=== PATIENT | female | born 1945 | race Caucasian/White ===

== ENCOUNTER 2018-04-22 15:41 | Inpatient (IN) ==
--- NOTE | 2018-04-22 16:10 | Emergency Department Note ---
Wound/Laceration HPI <Tadeo Marie - Last Filed: 04/22/18 18:29> - General Source: patient Mode of arrival: ambulatory Limitations: no limitations - History of Present Illness Onset (ago): unknown Location: other (sacrum) <Sally Lawson - Last Filed: 04/22/18 18:36> - General Chief Complaint: Wound/Laceration Stated Complaint: wound to zaida rectal area Time Seen by Provider: 04/22/18 15:50 - History of Present Illness HPI Narrative: 72-year-old female in ED with her sister present. Patient states her bottom hurts and has for "a few days". Sister states she only said something yesterday. Patient states she tries to stay active with walking, but mainly sits in a chair. Patient is type II diabetic [id number] controlled. (Sally Lawson) - Related Data Home Medications Medication Instructions Recorded Confirmed Biofreeze 10% Ext Aero TOPICAL 03/01/15 10/14/15 albuterol sulfate HFA 90 180 mcg INHALATION Q4H PRN 03/01/15 10/14/15 mcg/actuation aerosol inhaler aspirin 81 mg tablet,delayed 81 mg PO QDAY 03/01/15 10/14/15 release atorvastatin 40 mg tablet 40 mg PO QHS tab 03/01/15 10/14/15 bacitracin-polymyxin B 500 1 applic OPHTHALMIC BID g 03/01/15 10/14/15 unit-10,000 unit/gram eye ointment benzonatate 200 mg capsule 200 mg PO BID PRN cap 03/01/15 10/14/15 clobetasol 0.05 % scalp solution 1 applic TOPICAL ONCE ml 03/01/15 10/14/15 gabapentin 300 mg capsule 900 mg PO BID cap 03/01/15 10/14/15 glipizide ER 5 mg tablet, extended 5 mg PO QDAY 03/01/15 10/14/15 release 24 hr hydroxychloroquine 200 mg tablet 400 mg PO QDAY 03/01/15 10/14/15 ipratropium-albuterol 0.5 mg-3 3 ml INHALATION QID 03/01/15 10/14/15 mg(2.5 mg base)/3 mL nebulization soln ketoconazole 2 % shampoo 1 applic TOPICAL Q2W 03/01/15 10/14/15 losartan 100 mg tablet 100 mg PO QDAY 03/01/15 10/14/15 metformin 1,000 mg tablet 1,000 mg PO BID 03/01/15 10/14/15 morphine ER 30 mg tablet,extended 30 mg PO TID tab 03/01/15 10/14/15 release naproxen 500 mg tablet 500 mg PO ONCE PRN tab 03/01/15 10/14/15 omeprazole 20 mg tablet,delayed 20 mg PO QDAY 03/01/15 10/14/15 release sumatriptan 5 mg/actuation nasal 5 mg INTRANASAL ONCE 03/01/15 10/14/15 spray tramadol 50 mg tablet 50 mg PO Q4H PRN 03/01/15 10/14/15 Estradiol [Estrace] 2 mg PO QDAY 03/18/15 10/14/15 hydrocodone 10 mg-acetaminophen 1 tab PO .Q4H-6H PRN tab 03/18/15 10/14/15 325 mg tablet duloxetine 60 mg capsule,delayed 60 mg PO BID cap 05/14/15 10/14/15 release oxycodone-acetaminophen 10 mg-325 1 tab PO Q4H 07/05/15 10/14/15 mg tablet fluconazole 200 mg tablet 200 mg PO QDAY 07/12/15 10/14/15 methocarbamol 750 mg tablet 750 mg PO BID tab 10/14/15 10/14/15 Previous Rx's Medication Instructions Recorded hylan g-f 20 16 mg/2 mL 16 mg INTRA-ARTICULAR QWEEK #2 ml 05/29/15 intra-articular syringe cevimeline 30 mg capsule 1 cap PO TID #90 cap 07/23/15 Allergies Allergy/AdvReac Type Severity Reaction Status Date / Time hydrocodone Allergy Mild Itching Verified 10/14/15 13:21 aspirin [From Percodan] Allergy Unknown Unknown Verified 10/14/15 13:21 diazepam [From Valium] Allergy Unknown Unknown Verified 10/14/15 13:21 diphenhydramine Allergy Unknown Unknown Verified 10/14/15 13:21 [From Benadryl] Oxycodone [From Percodan] Allergy Unknown Unknown Verified 10/14/15 13:21 sulfasalazine [Sulfasalazine] Allergy Unknown Unknown Verified 10/14/15 13:21 vancomycin Allergy Unknown Unknown Verified 10/14/15 13:21 Review of Systems All systems ED: reviewed and negative except as stated. <Sally Lawson Aliyah - Last Filed: 04/22/18 18:36> Past Medical History <Tadeo Marie - Last Filed: 04/22/18 18:29> - Social History smoking status: Former smoker <Sally Lawson - Last Filed: 04/22/18 18:36> - Past Medical History PMFSH Narrative: All Active Problems Disorder of lumbar spine (Chronic) Chronic pain (Chronic) Sicca complex (Chronic) Fibromyalgia (Chronic) Polyarthritis (Chronic) Hx of tonsillectomy (Chronic) H/O knee surgery (Chronic) Hx of esophagogastroduodenoscopy (Chronic 08/30/13) H/O colonoscopy (Chronic) H/O adenoidectomy (Chronic) Psoriasis (Chronic) Pain in limb (Chronic) Osteoarthritis (Chronic) Neuropathy, lower extremity (Chronic) Menopausal syndrome (Chronic) Hyperlipidemia (Chronic) Gastroesophageal reflux (Chronic) Depressive disorder (Chronic) DJD (degenerative joint disease) of knee (Chronic) Cough (Chronic) Cellulitis and abscess of trunk (Chronic) Inflammatory breast disease (Chronic) Anxiety (Chronic) Gout (Chronic) Obesity (Chronic) Bilateral knee pain (Chronic) Carpal tunnel syndrome (Chronic) Back pain (Chronic) Migraine (Chronic) Hormone replacement therapy (Chronic) Asthma (Chronic) Hypothyroidism (Chronic) Peripheral neuropathy (Chronic) Diabetes mellitus, type II (Chronic) Pure hypercholesterolemia (Chronic) Essential hypertension (Chronic) Sjogrens syndrome (Chronic) Urinary frequency (Chronic) History of fracture of wrist (Chronic) History of appendectomy (Chronic) History of hysterectomy (Chronic) History of trigger finger (Chronic) History of carpal tunnel surgery (Chronic) History of laminectomy (Chronic) Past Surgical History Hx of tonsillectomy (Chronic) H/O knee surgery (Chronic) Hx of esophagogastroduodenoscopy (Chronic 08/30/13) H/O colonoscopy (Chronic) H/O adenoidectomy (Chronic) History of fracture of wrist (Chronic) History of appendectomy (Chronic) History of hysterectomy (Chronic) History of trigger finger (Chronic) History of carpal tunnel surgery (Chronic) History of laminectomy (Chronic) Family History Mother Cerebrovascular accident (CVA), Onset Age: 76 Malignant neoplasm Disorder of gallbladder Sister Malignant neoplasm of breast, Onset Age: 75 Unknown Disorder of endocrine system Essential hypertension Arthritis Allergic rhinitis Father Myocardial Infarction, Onset Age: 84 (Sally Lawson) Physical Exam Limitations: no limitations General appearance: alert, obese, other (patient with pain when laying on her back) Head: atraumatic, normocephalic, normal inspection Eye: Present: normal appearance, PERRL, other. Absent: conjunctival injection ENT: normal oropharynx, mucous membranes dry, normal external ear exam Neck: Present: normal inspection. Absent: tenderness, lymphadenopathy Chest: Present: normal inspection, symmetric chest wall rise. Absent: tenderness Respiratory: Present: normal lung sounds bilaterally. Absent: respiratory distress, rales/crackles, wheezes Cardiovascular: Present: tachycardia. Absent: systolic murmur, diastolic murmur Extremities: Present: normal inspection. Absent: pedal edema Back: Present: normal inspection. Absent: tenderness, CVA tenderness (R), CVA tenderness (L) Neurological: Present: alert, oriented X3, normal gait Psychiatric: Present: normal affect, normal mood. Absent: depressed, agitated, anxious Skin: Present: warm, dry, normal color, other (Sarcrum [id number] nongradable area with eschar, [id number] erythema surrounding. Non draining. Pannus pink no open sores). Absent: cyanosis, diaphoresis <Sally Lawson - Last Filed: 04/22/18 18:36> Course <Tadeo Marie - Last Filed: 04/22/18 18:29> <Sally Lawson - Last Filed: 04/22/18 18:36> - Reevaluation(s) Reevaluation #1: Patient seen and examined with our nurse practitioner. Agree with assessment and treatment plan. (Tadeo Marie) Vital Signs Temperature 97.8 F 04/22/18 15:41 Pulse Rate 93 H 04/22/18 15:41 Respiratory Rate 18 04/22/18 15:41 Blood Pressure 134/69 04/22/18 15:41 Pulse Oximetry (%) 98 04/22/18 15:41 Temperature 97.8 F 04/22/18 15:41 Pulse Rate 93 H 04/22/18 15:41 Respiratory Rate 18 04/22/18 15:41 Blood Pressure 134/69 04/22/18 15:41 Pulse Oximetry (%) 98 04/22/18 15:41 Wound/Laceration - Differential Diagnosis Differential Diagnosis: Likely: abscess, avulsion of skin - Lab Data Lab results reviewed: Yes I reviewed the patient's lab results. Result diagrams: 04/22/18 16:27 04/22/18 16:27 <Tadeo Marie - Last Filed: 04/22/18 18:29> - Lab Data Result diagrams: 04/22/18 16:27 04/22/18 16:27 <Sally Lawson - Last Filed: 04/22/18 18:36> - MDM Narrative Medical decision making narrative: Patient was discussed and reviewed with our nurse practitioner. Agree with her assessment and treatment plan. (Tadeo Marie) conculted with who advised he would see the patient if hospitalist would admit. Dr. Holt also stated Dry ABD, 30 TAPS avoid back. Consulted with who accepted patient. (Sally Lawson) - Lab Data Lab Results 04/22/18 04/22/18 04/22/18 Range/Units 16:25 16:27 16:27 WBC 7.4 (4.5-11.0) K/mcL RBC 4.56 (4.00-5.20) M/mcL Hgb 13.3 (12.0-15.0) g/dL Hct 39.8 (36.0-48.0) % MCV 87.3 (80.0-100.0) fL MCH 29.2 (26.0-34.0) pg MCHC 33.4 (31.0-36.0) g/dL RDW 13.8 (11.5-14.5) % Plt Count 373 (140-440) K/mcL MPV 7.9 (7.4-10.4) fL Gran % 64.5 (38.0-78.0) % Lymph % (Auto) 22.3 (15.5-49.0) % [place] % (Auto) 8.4 (1.0-12.0) % Eos % (Auto) 4.0 (0.0-7.0) % Baso % (Auto) 0.8 (0.0-2.0) % Gran # 4.8 (1.8-8.0) K/mcL Lymph # (Auto) 1.6 (1.5-4.8) K/mcL [place] # (Auto) 0.6 (0.1-0.9) K/mcL Eos # (Auto) 0.3 (0.0-0.7) K/mcL Baso # (Auto) 0.1 (0.0-0.3) K/mcL VBG Lactic Acid 2.9 H (0.5-2.0) mmol/L Sodium 138 (133-145) mmol/L Potassium 3.8 (3.3-5.1) mmol/L Chloride 101 (96-108) mmol/L Carbon Dioxide 24 (22-30) mmol/L Anion Gap 13.0 (8-16) BUN 7 L (8-23) mg/dl Creatinine 0.7 (0.6-1.1) mg/dl GFR Calculation 87 Glucose 259 H (70-105) mg/dL Calcium 8.7 (8.6-10.4) mg/dl Total Bilirubin 0.5 (0.0-1.0) mg/dL AST 13 (0-37) U/l ALT 10 (0-40) U/l Alkaline Phosphatase 78 (39-117) U/L C-Reactive Protein 1.3 H (0.0-0.8) mg/dl Total Protein 6.6 (5.9-8.4) gm/dL Albumin 3.2 (3.2-5.2) gm/dL Globulin 3.4 (2.2-3.7) gm/dL Albumin/Globulin Ratio 0.9 L (1.0-2.3) Procalcitonin (<0.10) ng/mL Urine Color Urine Appearance Urine pH (5.0-9.0) Ur Specific [place] (1.000-1.035) Urine Protein (NEG) mg/dL Urine Glucose (UA) (NEG) mg/dL Urine Ketones (NEG) mg/dL Urine Occult Blood (<0.03) mg/dL Urine Nitrate (NEG) Urine Bilirubin (NEG) mg/dL Urine Urobilinogen (NEG) mg/dL Ur Leukocyte Esterase (NEG) /uL Urine RBC (0-1) /hpf Urine WBC (0-4) /hpf Ur Squamous Epith Cells (0-4) /hpf Urine Bacteria (0) /hpf Hyaline Casts (0-2) /lpf Urine Mucus (0) /hpf Ur Culture Indicated? 04/22/18 04/22/18 Range/Units 16:28 17:30 WBC (4.5-11.0) K/mcL RBC (4.00-5.20) M/mcL Hgb (12.0-15.0) g/dL Hct (36.0-48.0) % MCV (80.0-100.0) fL MCH (26.0-34.0) pg MCHC (31.0-36.0) g/dL RDW (11.5-14.5) % Plt Count (140-440) K/mcL MPV (7.4-10.4) fL Gran % (38.0-78.0) % Lymph % (Auto) (15.5-49.0) % [place] % (Auto) (1.0-12.0) % Eos % (Auto) (0.0-7.0) % Baso % (Auto) (0.0-2.0) % Gran # (1.8-8.0) K/mcL Lymph # (Auto) (1.5-4.8) K/mcL [place] # (Auto) (0.1-0.9) K/mcL Eos # (Auto) (0.0-0.7) K/mcL Baso # (Auto) (0.0-0.3) K/mcL VBG Lactic Acid (0.5-2.0) mmol/L Sodium (133-145) mmol/L Potassium (3.3-5.1) mmol/L Chloride (96-108) mmol/L Carbon Dioxide (22-30) mmol/L Anion Gap (8-16) BUN (8-23) mg/dl Creatinine (0.6-1.1) mg/dl GFR Calculation Glucose (70-105) mg/dL Calcium (8.6-10.4) mg/dl Total Bilirubin (0.0-1.0) mg/dL AST (0-37) U/l ALT (0-40) U/l Alkaline Phosphatase (39-117) U/L C-Reactive Protein (0.0-0.8) mg/dl Total Protein (5.9-8.4) gm/dL Albumin (3.2-5.2) gm/dL Globulin (2.2-3.7) gm/dL Albumin/Globulin Ratio (1.0-2.3) Procalcitonin < 0.05 (<0.10) ng/mL Urine Color Yellow Urine Appearance Hazy Urine pH 5.0 (5.0-9.0) Ur Specific [place] 1.024 (1.000-1.035) Urine Protein Neg (NEG) mg/dL Urine Glucose (UA) 150 A (NEG) mg/dL Urine Ketones 5/tr A (NEG) mg/dL Urine Occult Blood Neg (<0.03) mg/dL Urine Nitrate Neg (NEG) Urine Bilirubin Neg (NEG) mg/dL Urine Urobilinogen Neg (NEG) mg/dL Ur Leukocyte Esterase Neg (NEG) /uL Urine RBC 1 (0-1) /hpf Urine WBC 3 (0-4) /hpf Ur Squamous Epith Cells 17 H (0-4) /hpf Urine Bacteria Few A (0) /hpf Hyaline Casts 1 (0-2) /lpf Urine Mucus Many A (0) /hpf Ur Culture Indicated? No Disposition Pt seen by LOCAL AREA NETWORK ADMINISTRATOR/PA only: No <Tadeo Marie - Last Filed: 04/22/18 18:29> Pt seen by LOCAL AREA NETWORK ADMINISTRATOR/PA only: No (Frank) Time of Disposition: 18:36 <Sally Lawson - Last Filed: 04/22/18 18:36> Clinical Impression: Diabetes mellitus with skin ulcer Disposition: Xfer As Inpt ([facility]) Condition: Fair Referrals: Tish Reynolds MD [Primary Care Provider] -
[2018-04-22 16:53] LABS: Basophils # (Auto) 0.1 K/mcL (0.0-0.3); Basophils % (Auto) 0.8 % (0.0-2.0); Eosinophils # (Auto) 0.3 K/mcL (0.0-0.7); Granulocytes % (Auto) 64.5 % (38.0-78.0); Lymphocytes # (Auto) 1.6 K/mcL (1.5-4.8); Lymphocytes % (Auto) 22.3 % (15.5-49.0); Mean Cell Volume 87.3 fL (80.0-100.0); Mean Corpuscular HGB Conc 33.4 g/dL (31.0-36.0); Monocytes # (Auto) 0.6 K/mcL (0.1-0.9); Monocytes % (Auto) 8.4 % (1.0-12.0); Platelet Count 373 K/mcL (140-440); RBC 4.56 M/mcL (4.00-5.20); Red Cell Distribution Width 13.8 % (11.5-14.5)
[2018-04-22 17:16] LABS: ALT/SGPT 10 U/l (0-40); Albumin 3.2 gm/dL (3.2-5.2); Albumin/Globulin Ratio 0.9 (1.0-2.3); Alkaline Phosphatase 78 U/L (39-117); Blood Urea Nitrogen 7 mg/dl (8-23); C-Reactive Protein 1.3 mg/dl (0.0-0.8)
[2018-04-22 18:03] LABS: Appearance,Urine HAZY; Bacteria,Urine FEW /hpf (0); Bilirubin,Urine NEG (NEG); Color,Urine YELLOW; Glucose,Urine (UA) 150 mg/dL (NEG); Leukocyte Esterase,Urine NEG /uL (NEG); Mucus,Urine MANY /hpf (0); Protein,Urine NEG (NEG); Specific Gravity,Urine 1.024 (1.000-1.035); Urine Blood NEG mg/dL (<0.03); Urine Hyaline Cast 1 /lpf (0-2); Urine RBC 1 /hpf (0-1); Urine Squamous Epithelial Cell 17 /hpf (0-4); Urine WBC 3 /hpf (0-4); Urobilinogen,Urine NEG (NEG)
[2018-04-22] MEDS ORDERED: LACTATED RINGERS 1,000 ML IV SCH (18:15)
[2018-04-22] MEDS ORDERED: 0.9 % SODIUM CHLORIDE 1,000 ML IV ONE ×3 (18:19→21:19)
--- NOTE | 2018-04-22 18:44 | Internal Med History&Physical ---
Medical - H&P: HPI Patient information: Note initiated : 04/22/18 at 6:42 pm Service Date, if different from initiated Date: [] Patient: Diogo Aly a 72 y/o F admitted on for wound to zaida rectal area. Chief Complaint: [] History of present illness: Ms. Aly is a 72 year old F Was a secondary to wound on her sacrum. She states several days ago she started noticing painful area at the top of her buttocks. And to continue to worsen where she had a friend bring her to the ER. In the ER she was found to have a large decubitus ulcer with erythema around it and some granulation tissue in a little bit of purulence. She denies any headaches fevers chills. She has had poor oral intake past day. She says he sits in a recliner most of the day and sometimes sleeps in the recliner. No other pains or complaints. Review of Systems: Positives as above. denies headache/fever/chills/nausea/vomiting/chest or abdominal pain/cough/dyspnea/diarrhea. Remaining 10 point review of systems reviewed negative Medical - H&P: PMH Medical history: All Active Problems Disorder of lumbar spine (Chronic) Chronic pain (Chronic) Sicca complex (Chronic) Fibromyalgia (Chronic) Polyarthritis (Chronic) Hx of tonsillectomy (Chronic) H/O knee surgery (Chronic) Hx of esophagogastroduodenoscopy (Chronic 08/30/13) H/O colonoscopy (Chronic) H/O adenoidectomy (Chronic) Psoriasis (Chronic) Pain in limb (Chronic) Osteoarthritis (Chronic) Neuropathy, lower extremity (Chronic) Menopausal syndrome (Chronic) Hyperlipidemia (Chronic) Gastroesophageal reflux (Chronic) Depressive disorder (Chronic) DJD (degenerative joint disease) of knee (Chronic) Cough (Chronic) Cellulitis and abscess of trunk (Chronic) Inflammatory breast disease (Chronic) Anxiety (Chronic) Gout (Chronic) Obesity (Chronic) Bilateral knee pain (Chronic) Carpal tunnel syndrome (Chronic) Back pain (Chronic) Migraine (Chronic) Hormone replacement therapy (Chronic) Asthma (Chronic) Hypothyroidism (Chronic) Peripheral neuropathy (Chronic) Diabetes mellitus, type II (Chronic) Pure hypercholesterolemia (Chronic) Essential hypertension (Chronic) Sjogrens syndrome (Chronic) Urinary frequency (Chronic) History of fracture of wrist (Chronic) History of appendectomy (Chronic) History of hysterectomy (Chronic) History of trigger finger (Chronic) History of carpal tunnel surgery (Chronic) History of laminectomy (Chronic) Past Surgical History Hx of tonsillectomy (Chronic) H/O knee surgery (Chronic) Hx of esophagogastroduodenoscopy (Chronic 08/30/13) H/O colonoscopy (Chronic) H/O adenoidectomy (Chronic) History of fracture of wrist (Chronic) History of appendectomy (Chronic) History of hysterectomy (Chronic) History of trigger finger (Chronic) History of carpal tunnel surgery (Chronic) History of laminectomy (Chronic) Family History Mother Cerebrovascular accident (CVA), Onset Age: 76 Malignant neoplasm Disorder of gallbladder Sister Malignant neoplasm of breast, Onset Age: 75 Unknown Disorder of endocrine system Essential hypertension Arthritis Allergic rhinitis Father Myocardial Infarction, Onset Age: 84 Social History Quit smoking 1981 drinks alcohol rarely embolized with a cane lives at home with a friend Medical - H&P: Meds Home Medications Medication Instructions Recorded Confirmed Type Biofreeze 10% Ext Aero TOPICAL 03/01/15 10/14/15 History albuterol sulfate HFA 90 180 mcg INHALATION Q4H PRN 03/01/15 10/14/15 History mcg/actuation aerosol inhaler aspirin 81 mg tablet,delayed 81 mg PO QDAY 03/01/15 10/14/15 History release atorvastatin 40 mg tablet 40 mg PO QHS tab 03/01/15 10/14/15 History bacitracin-polymyxin B 500 1 applic OPHTHALMIC BID g 03/01/15 10/14/15 History unit-10,000 unit/gram eye ointment benzonatate 200 mg capsule 200 mg PO BID PRN cap 03/01/15 10/14/15 History clobetasol 0.05 % scalp solution 1 applic TOPICAL ONCE ml 03/01/15 10/14/15 History gabapentin 300 mg capsule 900 mg PO BID cap 03/01/15 10/14/15 History glipizide ER 5 mg tablet, extended 5 mg PO QDAY 03/01/15 10/14/15 History release 24 hr hydroxychloroquine 200 mg tablet 400 mg PO QDAY 03/01/15 10/14/15 History ipratropium-albuterol 0.5 mg-3 3 ml INHALATION QID 03/01/15 10/14/15 History mg(2.5 mg base)/3 mL nebulization soln ketoconazole 2 % shampoo 1 applic TOPICAL Q2W 03/01/15 10/14/15 History losartan 100 mg tablet 100 mg PO QDAY 03/01/15 10/14/15 History metformin 1,000 mg tablet 1,000 mg PO BID 03/01/15 10/14/15 History morphine ER 30 mg tablet,extended 30 mg PO TID tab 03/01/15 10/14/15 History release naproxen 500 mg tablet 500 mg PO ONCE PRN tab 03/01/15 10/14/15 History omeprazole 20 mg tablet,delayed 20 mg PO QDAY 03/01/15 10/14/15 History release sumatriptan 5 mg/actuation nasal 5 mg INTRANASAL ONCE 03/01/15 10/14/15 History spray tramadol 50 mg tablet 50 mg PO Q4H PRN 03/01/15 10/14/15 History Estradiol [Estrace] 2 mg PO QDAY 03/18/15 10/14/15 History hydrocodone 10 mg-acetaminophen 1 tab PO .Q4H-6H PRN tab 03/18/15 10/14/15 History 325 mg tablet duloxetine 60 mg capsule,delayed 60 mg PO BID cap 05/14/15 10/14/15 History release hylan g-f 20 16 mg/2 mL 16 mg INTRA-ARTICULAR QWEEK #2 ml 05/29/15 10/14/15 Rx intra-articular syringe oxycodone-acetaminophen 10 mg-325 1 tab PO Q4H 07/05/15 10/14/15 History mg tablet fluconazole 200 mg tablet 200 mg PO QDAY 07/12/15 10/14/15 History cevimeline 30 mg capsule 1 cap PO TID #90 cap 07/23/15 10/14/15 Rx methocarbamol 750 mg tablet 750 mg PO BID tab 10/14/15 10/14/15 History Allergies Allergy/AdvReac Type Severity Reaction Status Date / Time hydrocodone Allergy Mild Itching Verified 10/14/15 13:21 aspirin [From Percodan] Allergy Unknown Unknown Verified 10/14/15 13:21 diazepam [From Valium] Allergy Unknown Unknown Verified 10/14/15 13:21 diphenhydramine Allergy Unknown Unknown Verified 10/14/15 13:21 [From Benadryl] Oxycodone [From Percodan] Allergy Unknown Unknown Verified 10/14/15 13:21 sulfasalazine [Sulfasalazine] Allergy Unknown Unknown Verified 10/14/15 13:21 vancomycin Allergy Unknown Unknown Verified 10/14/15 13:21 Medical - H&P: Exam - Constitutional Vitals: Temp Pulse Resp BP Pulse Ox 97.8 F 93 H 18 134/69 98 04/22/18 15:41 04/22/18 15:41 04/22/18 15:41 04/22/18 15:41 04/22/18 15:41 Exam: General: Alert, Awake, No acute Distress, obese Eyes/N/T: EOMI, PEERL, DMM Head/Neck: neck supple, normocephalic atraumatic CV: RRR, No murmurs, normal s1/s2 Pulm: Clear b/l, no wheezing/rhonchi/rales Abd: soft, nontender, +BS x4 Ext: no clubbing/cyanosis/edema Neuro: Alert, no focal deficits, moves all extremities, CN 2-12 grossly intact, symmetrical strength b/l upper/lower, sensations intact b/l upper/lower Skin: warm/dry Back: Large sacral decubitus ulcer with surrounding erythema, some purulence in the center and eschar Medical - H&P: Reslt - Labs CBC & Chem 7: 04/22/18 16:27 04/22/18 16:27 Labs: Short CBC 04/22/18 Range/Units 16:27 WBC 7.4 (4.5-11.0) K/mcL Hgb 13.3 (12.0-15.0) g/dL Hct 39.8 (36.0-48.0) % Plt Count 373 (140-440) K/mcL BMP 04/22/18 16:27 Sodium 138 Potassium 3.8 Chloride 101 Carbon Dioxide 24 BUN 7 L Creatinine 0.7 Glucose 259 H Calcium 8.7 Liver Function 04/22/18 Range/Units 16:27 Total Bilirubin 0.5 (0.0-1.0) mg/dL AST 13 (0-37) U/l ALT 10 (0-40) U/l Alkaline Phosphatase 78 (39-117) U/L Albumin 3.2 (3.2-5.2) gm/dL Urine 04/22/18 Range/Units 17:30 Urine Color Yellow Urine Appearance Hazy Urine pH 5.0 (5.0-9.0) Ur Specific [place] 1.024 (1.000-1.035) Urine Protein Neg (NEG) mg/dL Urine Glucose (UA) 150 A (NEG) mg/dL Medical - H&P: A/P - Narrative A/P Narrative: A: *Sacral decubitus ulcer appears to be early infection: *Diabetes with neuropathy: *Asthma: *Obesity: *Hypertension: *GERD: *Fibromyalgia: * P: -Zosyn -IVF's -Wound care, Dr. Dodd -SSI -f/u lactate -check A1c - -pt/ot -ppx: heparin/pepcid
[2018-04-22] MEDS ORDERED: IPRATROPIUM/ALBUTEROL 3 ML AMPUL.NEB NEB PRN (19:48)
[2018-04-22] MEDS ORDERED: ONDANSETRON 4 MG/2 ML VIAL IV PRN (19:48)
[2018-04-22] MEDS ORDERED: DEXTROSE 31 GM ORAL.SUSP PO PRN (19:48)
[2018-04-22] MEDS ORDERED: ACETAMINOPHEN 325 MG TABLET PO PRN (19:48)
[2018-04-22] MEDS ORDERED: DEXTROSE 50% 50 ML VIAL IV PRN (19:48)
[2018-04-22 21:11] LABS: Hemoglobin A1C 9.7 % HGB (4.0-6.0)
[2018-04-22] MEDS ORDERED: LABETALOL 5 MG/ML ML IV PRN (21:20)
[2018-04-22] MEDS: HEPARIN 5,000 UNIT/ML VIAL SQ SCH (21:29)
[2018-04-22] MEDS: DOCUSATE SODIUM 100 MG CAPSULE PO SCH (21:29)
[2018-04-22] MEDS: FAMOTIDINE 20 MG TABLET PO SCH (21:30)
[2018-04-22] MEDS: INSULIN LISPRO 1 UNIT/0.01 ML UNIT SQ SCH (21:31)
[2018-04-22] MEDS: 0.9 % SODIUM CHLORIDE 10 ML SYRINGE IV SCH (21:32)
[2018-04-22] MEDS: 0.9 % SODIUM CHLORIDE 1,000 ML IV SCH (21:35)
[2018-04-22] MEDS: PIPERACILLIN SODIUM/TAZOBACTAM 3.375 GM in DEXTROSE 5% IN WATER 50 ML IV SCH (21:35)
--- NOTE | 2018-04-22 21:55 | General Surgery Consult Note ---
History of Present Illness Patient information: Note initiated : 04/22/18 at 9:49 pm Service Date, if different from initiated Date: [] Patient: Diogo Aly 72 y/o F admitted on 04/22/18 for wound to zaida rectal area. Chief Complaint: [] Consult date: 04/22/18 Requesting physician: Vic Isbell (Sacral ulcer, Uncontrolled diabetes) History of present illness: I saw this patient in room 127. 72/F Morbid obese female admitted via ER with uncontrolled diabetes, chills but NO fever. DENIES N/V/D/COUGH. bleeding. NO CVS/ RS SYMPTOMS. SHE SITS ON CHAIR OR LIES DOWN ALL THE TIME. Seen in ER and admitted to hospital for observation. NON Smoker and NON alcoholic Medications and Allergies Home Medications Medication Instructions Recorded Confirmed Type Biofreeze 10% Ext Aero TOPICAL 03/01/15 10/14/15 History albuterol sulfate HFA 90 180 mcg INHALATION Q4H PRN 03/01/15 10/14/15 History mcg/actuation aerosol inhaler aspirin 81 mg tablet,delayed 81 mg PO QDAY 03/01/15 10/14/15 History release atorvastatin 40 mg tablet 40 mg PO QHS tab 03/01/15 10/14/15 History bacitracin-polymyxin B 500 1 applic OPHTHALMIC BID g 03/01/15 10/14/15 History unit-10,000 unit/gram eye ointment benzonatate 200 mg capsule 200 mg PO BID PRN cap 03/01/15 10/14/15 History clobetasol 0.05 % scalp solution 1 applic TOPICAL ONCE ml 03/01/15 10/14/15 History gabapentin 300 mg capsule 900 mg PO BID cap 03/01/15 10/14/15 History glipizide ER 5 mg tablet, extended 5 mg PO QDAY 03/01/15 10/14/15 History release 24 hr hydroxychloroquine 200 mg tablet 400 mg PO QDAY 03/01/15 10/14/15 History ipratropium-albuterol 0.5 mg-3 3 ml INHALATION QID 03/01/15 10/14/15 History mg(2.5 mg base)/3 mL nebulization soln ketoconazole 2 % shampoo 1 applic TOPICAL Q2W 03/01/15 10/14/15 History losartan 100 mg tablet 100 mg PO QDAY 03/01/15 10/14/15 History metformin 1,000 mg tablet 1,000 mg PO BID 03/01/15 10/14/15 History morphine ER 30 mg tablet,extended 30 mg PO TID tab 03/01/15 10/14/15 History release naproxen 500 mg tablet 500 mg PO ONCE PRN tab 03/01/15 10/14/15 History omeprazole 20 mg tablet,delayed 20 mg PO QDAY 03/01/15 10/14/15 History release sumatriptan 5 mg/actuation nasal 5 mg INTRANASAL ONCE 03/01/15 10/14/15 History spray tramadol 50 mg tablet 50 mg PO Q4H PRN 03/01/15 10/14/15 History Estradiol [Estrace] 2 mg PO QDAY 03/18/15 10/14/15 History hydrocodone 10 mg-acetaminophen 1 tab PO .Q4H-6H PRN tab 03/18/15 10/14/15 History 325 mg tablet duloxetine 60 mg capsule,delayed 60 mg PO BID cap 05/14/15 10/14/15 History release hylan g-f 20 16 mg/2 mL 16 mg INTRA-ARTICULAR QWEEK #2 ml 05/29/15 10/14/15 Rx intra-articular syringe oxycodone-acetaminophen 10 mg-325 1 tab PO Q4H 07/05/15 10/14/15 History mg tablet fluconazole 200 mg tablet 200 mg PO QDAY 07/12/15 10/14/15 History cevimeline 30 mg capsule 1 cap PO TID #90 cap 07/23/15 10/14/15 Rx methocarbamol 750 mg tablet 750 mg PO BID tab 10/14/15 10/14/15 History Allergies Allergy/AdvReac Type Severity Reaction Status Date / Time hydrocodone Allergy Mild Itching Verified 10/14/15 13:21 aspirin [From Percodan] Allergy Unknown Unknown Verified 10/14/15 13:21 diazepam [From Valium] Allergy Unknown Unknown Verified 10/14/15 13:21 diphenhydramine Allergy Unknown Unknown Verified 10/14/15 13:21 [From Benadryl] Oxycodone [From Percodan] Allergy Unknown Unknown Verified 10/14/15 13:21 sulfasalazine [Sulfasalazine] Allergy Unknown Unknown Verified 10/14/15 13:21 vancomycin Allergy Unknown Unknown Verified 10/14/15 13:21 Exam Temp Pulse Resp BP Pulse Ox 97.8 F 82 20 183/79 100 04/22/18 19:48 04/22/18 19:48 04/22/18 19:48 04/22/18 19:48 04/22/18 19:48 - General physical appearance well developed, well nourished, no distress, obese, other (Ambulates well. ) - Eyes PERRL, normal ocular movement, pale - ENT normal pinna, normal nares, normal mucosa, no congestion - Head Head exam IM: Present: atraumatic, normal inspection, normocephalic - Neck no masses, trachea midline, no venous distension - Cardiovascular Cardiovascular exam IM: Present: normal rate and rhythm - Respiratory normal expansion, clear to auscultation - Abdomen Abdomen: Present: soft, non tender, bowel sounds - Integumentary Present: other (Sacral pressure ulcer covered with dry adherent eschar 9 x 3 CM stuck to wound base. Surrounding skin and periwound texture is usual for this patient. ) - Neurologic Present: normal coordination, deep tendon reflexes, other (Moves all 4 extremities. ) - Musculoskeletal Present: normal gait, other - Psychiatric Present: oriented to time, oriented to person, speech is normal, memory intact Results - Labs 04/22/18 16:27 04/22/18 16:27 Abnormal lab results 04/22/18 04/22/18 04/22/18 Range/Units 16:25 16:27 17:30 VBG Lactic Acid 2.9 H (0.5-2.0) mmol/L BUN 7 L (8-23) mg/dl Glucose 259 H (70-105) mg/dL Hemoglobin A1c (4.0-6.0) % HGB C-Reactive Protein 1.3 H (0.0-0.8) mg/dl Albumin/Globulin Ratio 0.9 L (1.0-2.3) Urine Glucose (UA) 150 A (NEG) mg/dL Urine Ketones 5/tr A (NEG) mg/dL Ur Squamous Epith Cells 17 H (0-4) /hpf Urine Bacteria Few A (0) /hpf Urine Mucus Many A (0) /hpf 04/22/18 04/22/18 Range/Units 20:25 20:25 VBG Lactic Acid 2.8 H (0.5-2.0) mmol/L BUN (8-23) mg/dl Glucose (70-105) mg/dL Hemoglobin A1c 9.7 H (4.0-6.0) % HGB C-Reactive Protein (0.0-0.8) mg/dl Albumin/Globulin Ratio (1.0-2.3) Urine Glucose (UA) (NEG) mg/dL Urine Ketones (NEG) mg/dL Ur Squamous Epith Cells (0-4) /hpf Urine Bacteria (0) /hpf Urine Mucus (0) /hpf Diabetes panel 04/22/18 04/22/18 Range/Units 16:27 20:25 Sodium 138 (133-145) mmol/L Potassium 3.8 (3.3-5.1) mmol/L Chloride 101 (96-108) mmol/L Carbon Dioxide 24 (22-30) mmol/L BUN 7 L (8-23) mg/dl Creatinine 0.7 (0.6-1.1) mg/dl Glucose 259 H (70-105) mg/dL Hemoglobin A1c 9.7 H (4.0-6.0) % HGB Calcium 8.7 (8.6-10.4) mg/dl AST 13 (0-37) U/l ALT 10 (0-40) U/l Alkaline Phosphatase 78 (39-117) U/L Total Protein 6.6 (5.9-8.4) gm/dL Albumin 3.2 (3.2-5.2) gm/dL Calcium panel 04/22/18 Range/Units 16:27 Calcium 8.7 (8.6-10.4) mg/dl Albumin 3.2 (3.2-5.2) gm/dL Pituitary panel 04/22/18 Range/Units 16:27 Sodium 138 (133-145) mmol/L Potassium 3.8 (3.3-5.1) mmol/L Chloride 101 (96-108) mmol/L Carbon Dioxide 24 (22-30) mmol/L BUN 7 L (8-23) mg/dl Creatinine 0.7 (0.6-1.1) mg/dl Glucose 259 H (70-105) mg/dL Calcium 8.7 (8.6-10.4) mg/dl Adrenal panel 12/21/18 Range/Units 16:27 Sodium 138 (133-145) mmol/L Potassium 3.8 (3.3-5.1) mmol/L Chloride 101 (96-108) mmol/L Carbon Dioxide 24 (22-30) mmol/L BUN 7 L (8-23) mg/dl Creatinine 0.7 (0.6-1.1) mg/dl Glucose 259 H (70-105) mg/dL Calcium 8.7 (8.6-10.4) mg/dl Total Bilirubin 0.5 (0.0-1.0) mg/dL AST 13 (0-37) U/l ALT 10 (0-40) U/l Alkaline Phosphatase 78 (39-117) U/L Total Protein 6.6 (5.9-8.4) gm/dL Albumin 3.2 (3.2-5.2) gm/dL All other labs normal.
[2018-04-22] MEDS ORDERED: COLLAGENASE TOP OINT TUBE 30GM TOPICAL ONE (22:05)
[2018-04-23] MEDS: PIPERACILLIN SODIUM/TAZOBACTAM 3.375 GM in DEXTROSE 5% IN WATER 50 ML IV SCH ×4 (01:04→18:19)
[2018-04-23] MEDS: 0.9 % SODIUM CHLORIDE 10 ML SYRINGE IV SCH ×3 (04:43→20:58)
[2018-04-23 05:29] LABS: Basophils # (Auto) 0.1 K/mcL (0.0-0.3); Basophils % (Auto) 0.8 % (0.0-2.0); Eosinophils # (Auto) 0.3 K/mcL (0.0-0.7); Eosinophils % (Auto) 4.1 % (0.0-7.0); Granulocytes % (Auto) 62.2 % (38.0-78.0); Lymphocytes # (Auto) 1.8 K/mcL (1.5-4.8); Mean Cell Volume 87.7 fL (80.0-100.0); Monocytes # (Auto) 0.8 K/mcL (0.1-0.9); Monocytes % (Auto) 9.9 % (1.0-12.0); Platelet Count 325 K/mcL (140-440); RBC 4.11 M/mcL (4.00-5.20); Red Cell Distribution Width 13.9 % (11.5-14.5)
[2018-04-23 05:57] LABS: ALT/SGPT 9 U/l (0-40); Albumin 2.7 gm/dL (3.2-5.2); Albumin/Globulin Ratio 0.8 (1.0-2.3); Alkaline Phosphatase 71 U/L (39-117); Bilirubin,Direct < 0.2 mg/dL (0.0-0.3); Blood Urea Nitrogen 6 mg/dl (8-23); Gamma Glutamyl Transpeptidase 40 U/L (5-36)
[2018-04-23] MEDS ORDERED: SUMATRIPTAN 5 MG INTRANASAL PRN (07:44)
[2018-04-23] MEDS ORDERED: oxyCODONE/APAP 10/325MG TABLET PO PRN (07:44)
[2018-04-23] MEDS ORDERED: LABETALOL 5 MG/ML ML IV PRN (07:46)
--- NOTE | 2018-04-23 07:57 | Internal Med Progress Note ---
Medical - PN: Subj Patient information: Note initiated : 04/23/18 at 7:47 am Service Date, if different from initiated Date: [] Patient: Diogo Aly a 72 y/o F admitted on 04/22/18 for wound to zaida rectal area. Chief Complaint: [] Interval history: Ms. Aly is a 72 year old F Was a secondary to wound on her sacrum. She states several days ago she started noticing painful area at the top of her buttocks. And to continue to worsen where she had a friend bring her to the ER. In the ER she was found to have a large decubitus ulcer with erythema around it and some granulation tissue in a little bit of purulence. She denies any headaches fevers chills. She has had poor oral intake past day. She says he sits in a recliner most of the day and sometimes sleeps in the recliner. No other pains or complaints. 04/23 Continues to have pain in the sacral area. Home medications clarified and restarting home pain medications and cont prn IV pain meds. No new complaints. Review of Systems: denies headache/fever/chills/nausea/vomiting/chest or abdominal pain/cough/ dyspnea/diarrhea. Otherwise see above. - Constitutional Vitals: Vital Signs Temp Pulse Resp BP Pulse Ox 98.1 F 74 18 162/87 96 04/23/18 06:57 04/23/18 04:00 04/23/18 06:57 04/23/18 06:57 04/23/18 06:57 Period Temp Pulse Resp BP Sys/Munoz Pulse Ox Last 24 Hr 97.8 F-98.2 F 73-93 18-24 134-183/59-87 96-100 Intake and Output 04/22/18 04/23/18 04/23/18 21:59 05:59 13:59 Intake Total 1999 300 / 300 Output Total 300 / 300 350 / 350 300 / 300 Balance 1700 / 1700 -50 / -50 -300 / -300 Weight 87.997 kg Intake & Output: Intake & Output 04/22/18 04/23/18 04/23/18 21:59 05:59 13:59 Intake Total 1999 300 / 300 Output Total 300 / 300 350 / 350 300 / 300 Balance 1700 / 1700 -50 / -50 -300 / -300 Weight 87.997 kg Intake: IV 1999 / 1999 100 / 100 Sodium Chloride 0.9% 1,000 ml @ 1000 / 1000 Wide Open IV [facility] Rx#: [id number] Lactated Ringers 1,000 ml @ 500 1000 / 1000 mls/hr IV .Q2H [facility] Rx#: [id number] Zosyn 3.375 gm In Dextrose 5% 100 / 100 in Water 50 ml @ 100 mls/hr IV Q6H [facility] Rx#:[id number] Oral 200 / 200 Output: Void Amount 300 / 300 350 / 350 300 / 300 Other: Urine Appearance Clear Urine Color Bright Yellow Urine Odor Strong Stool Size Moderate Stool Color Brown Stool Consistency Formed # Voids 2 1 # Bowel Movements 1 Exam: General: Alert, Awake, No acute Distress, obese Eyes/N/T: EOMI, Head/Neck: neck supple, CV: RRR, No murmurs, normal s1/s2 Pulm: Clear b/l, no wheezing/rhonchi/rales Abd: soft, nontender, +BS x4 Ext: no clubbing/cyanosis/edema Neuro: Alert, no focal deficits, moves all extremities, Skin: warm/dry Back: Large sacral decubitus ulcer with dressing in place Medical - PN: Obj Da - Labs CBC & Chem 7: 04/23/18 04:47 04/23/18 04:47 Labs: Abnormal Lab Results 04/23/18 04/23/18 04/22/18 04:47 04:47 20:25 VBG Lactic Acid 3.3 H BUN 6 L Glucose 233 H Hemoglobin A1c 9.7 H Calcium 8.3 L Phosphorus 2.4 L Magnesium 1.5 L GGT 40 H C-Reactive Protein Albumin 2.7 L Albumin/Globulin Ratio 0.8 L Triglycerides 289 H Urine Glucose (UA) Urine Ketones Ur Squamous Epith Cells Urine Bacteria Urine Mucus 04/22/18 04/22/18 04/22/18 20:25 17:30 16:27 VBG Lactic Acid 2.8 H BUN 7 L Glucose 259 H Hemoglobin A1c Calcium Phosphorus Magnesium GGT C-Reactive Protein 1.3 H Albumin Albumin/Globulin Ratio 0.9 L Triglycerides Urine Glucose (UA) 150 A Urine Ketones 5/tr A Ur Squamous Epith Cells 17 H Urine Bacteria Few A Urine Mucus Many A 04/22/18 16:25 VBG Lactic Acid 2.9 H BUN Glucose Hemoglobin A1c Calcium Phosphorus Magnesium GGT C-Reactive Protein Albumin Albumin/Globulin Ratio Triglycerides Urine Glucose (UA) Urine Ketones Ur Squamous Epith Cells Urine Bacteria Urine Mucus Meds: Medications Acetaminophen (Tylenol) 650 mg PO Q6HP PRN PRN Reason: PAIN/FEVER > 101 Albuterol/Ipratropium (Duoneb) 3 ml NEB Q4HRT PRN PRN Reason: Bronchospasm Atorvastatin Calcium (Lipitor) 40 mg PO QHS [facility] Collagenase (Santyl Top Oint) 1 dose TOPICAL DAILY [facility] Dextrose (Dextrose 50%) 0 ml IV UD PRN PRN Reason: Hypoglycemia Diagnostic Test (Pha) (Accu-Chek) 1 each FS ACHS [facility] Last Admin: 04/23/18 06:47 Dose: 1 each Docusate Sodium (Colace) 100 mg PO BID [facility] Last Admin: 04/22/18 21:29 Dose: 100 mg Famotidine (Pepcid) 20 mg PO BID [facility] Last Admin: 04/22/18 21:30 Dose: 20 mg Gabapentin (Neurontin) 900 mg PO BID [facility] Glucose (Insta-Glucose) 15 gm PO PRN PRN PRN Reason: Hypoglycemia Heparin Sodium (Porcine) (Heparin) 5,000 unit SQ Q12 [facility] Last Admin: 04/22/18 21:29 Dose: 5,000 unit Sodium Chloride (Sodium Chloride 0.9%) 1,000 mls @ 100 mls/hr IV .Q10H [facility] Stop: 04/23/18 15:47 Last Admin: 04/22/18 21:35 Dose: 100 mls/hr Piperacillin Sod/Tazobactam (Sod 3.375 gm/ Dextrose) 50 mls @ 100 mls/hr IV Q6H [facility] Last Admin: 04/23/18 07:23 Dose: 100 mls/hr Insulin Human Lispro (Humalog) 0 unit SQ ACHS [facility]; Protocol Last Admin: 04/22/18 21:31 Dose: 6 units Labetalol HCl (Trandate) 0 mg IV Q2HP PRN PRN Reason: htn Last Admin: 04/22/18 22:41 Dose: 10 mg Methocarbamol (Robaxin (Pp)) 750 mg PO HSP PRN PRN Reason: Spasms Morphine Sulfate (Morphine) 2 - 4 mg IV Q4HP PRN PRN Reason: PAIN LEVEL > 6 Last Admin: 04/23/18 05:23 Dose: 2 mg Morphine Sulfate (Ms Contin) 30 mg PO TID [facility] Non-Formulary Medication (Aspirin [Adult Low Dose Aspirin Ec]) 81 mg PO QDAY [facility] Non-Formulary Medication (Duloxetine Hcl [Cymbalta]) 60 mg PO BID [facility] Non-Formulary Medication (Losartan Potassium [Cozaar]) 100 mg PO QDAY [facility] Non-Formulary Medication (Sumatriptan [Imitrex]) 5 mg INTRANASAL ONCE PRN PRN Reason: Migraine Headache Ondansetron HCl (Zofran) 4 mg IV Q6HP PRN PRN Reason: Nausea And Vomiting Oxycodone/Acetaminophen (Percocet 10-325mg) 1 tab PO Q6HP PRN PRN Reason: Pain Sodium Chloride (Saline Flush) 10 ml IV Q8 [facility] Last Admin: 04/23/18 04:43 Dose: Not Given Tramadol HCl (Ultram) 50 mg PO Q4H PRN PRN Reason: Pain Medical - PN: A/P - Time Spent With Patient Total time spent is greater than 50% in coordination of care (as documented) at patient's floor/unit and/or counseling patient: - Narrative A/P Narrative: A: *Sacral decubitus ulcer, large: -lactic acidosis: VSS, afebrile, PCT low, ?metformin. does not appear to hypoperfused *Diabetes with neuropathy: A1c 9.7 -on metformin and glipizide at home *Asthma: *Obesity: *Hypertension: *GERD: *Fibromyalgia: P: -IVF's finish -Wound care, Dr. Dodd -Abx's -SSI -f/u lactate, BC's - -pt/ot -ppx: heparin/pepcid Medical - PN: Qual - VTE Deep Vein Thrombosis/Pulmonary Embolism Present on Admission: No
[2018-04-23] MEDS ORDERED: MAGNESIUM SULFATE 2 GM/50 ML BAG IV ONE (09:00)
[2018-04-23] MEDS: HEPARIN 5,000 UNIT/ML VIAL SQ SCH ×2 (09:01→20:57)
[2018-04-23] MEDS: 0.9 % SODIUM CHLORIDE 1,000 ML IV SCH (09:01)
[2018-04-23] MEDS: GABAPENTIN 300 MG CAPSULE PO SCH (09:01)
[2018-04-23] MEDS: ASPIRIN 81 MG TAB.CHEW PO SCH (09:02)
[2018-04-23] MEDS: FAMOTIDINE 20 MG TABLET PO SCH ×2 (09:02→20:57)
[2018-04-23] MEDS: DULoxetine 30 MG CAPSULE PO SCH ×2 (09:02→20:57)
[2018-04-23] MEDS: DOCUSATE SODIUM 100 MG CAPSULE PO SCH ×2 (09:02→20:57)
[2018-04-23] MEDS: INSULIN LISPRO 1 UNIT/0.01 ML UNIT SQ SCH ×4 (09:02→21:08)
[2018-04-23] MEDS: INSULIN GLARGINE, HUMAN 1 UNIT/0.01 ML SQ SCH (09:02)
[2018-04-23] MEDS: morphine 30 MG TAB.SR.12H PO SCH ×3 (09:02→20:58)
[2018-04-23] MEDS: LOSARTAN 50 MG TABLET PO SCH (09:02)
[2018-04-23] MEDS: COLLAGENASE TOP OINT TUBE 30GM TOPICAL SCH (09:03)
[2018-04-23 09:09] LABS: Eosinophils % (Manual) 3 % (0-7); Lymphocytes % 21 % (15-49); Monocytes % (Manual) 7 % (1-12); Platelet Estimate NORMAL (NORMAL); RBC Morphology NORMAL (NORMAL); Segmented Neutrophils % 69 % (38-78)
[2018-04-23] MEDS ORDERED: VANCOMYCIN 1,000 MG in 0.9 % SODIUM CHLORIDE 250 ML IV ONE (09:17)
--- NOTE | 2018-04-23 10:43 | General Surgery Progress Note ---
Subjective Patient reports: feels better, still having pain, pain is less, tolerating a regular diet, afebrile Narrative: Note initiated : 04/23/18 at 10:41 am Service Date, if different from initiated Date: [] Patient: Diogo Aly 72 y/o F admitted on 04/22/18 for wound to zaida rectal area. Chief Complaint: [] Moves well in bed and can lie on sides during examination and dressing changes. Demarcating eschar. Periwound skin has denuding epidermis. patient on local wound care and IV Zosyn. Objective Temp Pulse Resp BP Pulse Ox 98.1 F 74 18 162/87 96 04/23/18 06:57 04/23/18 04:00 04/23/18 06:57 04/23/18 06:57 04/23/18 06:57 AVSS. No changes GANESH. Slept well. L/E : patient seen with Jackie BUTT Demarcating slough scored with # 15 scalpel blade and devitalized eschar excised at bedside with shrimp picker and scissors. Perianal hygiene is adequate. NO crepitus and NO foul odor. - Additional Data Intake & Output - Last 24 hours: Intake & Output 04/21/18 04/22/18 04/23/18 04/24/18 05:59 05:59 05:59 05:59 Intake Total 2300 / 2300 1000 / 1000 Output Total 650 / 650 300 / 300 Balance 1650 / 1650 700 / 700 Weight 194 lb - Labs 04/23/18 04:47 04/23/18 04:47 Diabetes panel 04/22/18 04/22/18 04/23/18 Range/Units 16:27 20:25 04:47 Sodium 138 140 (133-145) mmol/L Potassium 3.8 3.7 (3.3-5.1) mmol/L Chloride 101 103 (96-108) mmol/L Carbon Dioxide 24 24 (22-30) mmol/L BUN 7 L 6 L (8-23) mg/dl Creatinine 0.7 0.7 (0.6-1.1) mg/dl Glucose 259 H 233 H (70-105) mg/dL Hemoglobin A1c 9.7 H (4.0-6.0) % HGB Calcium 8.7 8.3 L (8.6-10.4) mg/dl AST 13 14 (0-37) U/l ALT 10 9 (0-40) U/l Alkaline Phosphatase 78 71 (39-117) U/L Total Protein 6.6 5.9 (5.9-8.4) gm/dL Albumin 3.2 2.7 L (3.2-5.2) gm/dL Triglycerides 289 H (<150) mg/dl Calcium panel 04/22/18 04/23/18 Range/Units 16:27 04:47 Calcium 8.7 8.3 L (8.6-10.4) mg/dl Phosphorus 2.4 L (2.7-4.5) mg/dL Albumin 3.2 2.7 L (3.2-5.2) gm/dL Pituitary panel 04/22/18 04/23/18 Range/Units 16:27 04:47 Sodium 138 140 (133-145) mmol/L Potassium 3.8 3.7 (3.3-5.1) mmol/L Chloride 101 103 (96-108) mmol/L Carbon Dioxide 24 24 (22-30) mmol/L BUN 7 L 6 L (8-23) mg/dl Creatinine 0.7 0.7 (0.6-1.1) mg/dl Glucose 259 H 233 H (70-105) mg/dL Calcium 8.7 8.3 L (8.6-10.4) mg/dl Adrenal panel 04/22/18 04/23/18 Range/Units 16:27 04:47 Sodium 138 140 (133-145) mmol/L Potassium 3.8 3.7 (3.3-5.1) mmol/L Chloride 101 103 (96-108) mmol/L Carbon Dioxide 24 24 (22-30) mmol/L BUN 7 L 6 L (8-23) mg/dl Creatinine 0.7 0.7 (0.6-1.1) mg/dl Glucose 259 H 233 H (70-105) mg/dL Calcium 8.7 8.3 L (8.6-10.4) mg/dl Total Bilirubin 0.5 0.3 (0.0-1.0) mg/dL AST 13 14 (0-37) U/l ALT 10 9 (0-40) U/l Alkaline Phosphatase 78 71 (39-117) U/L Total Protein 6.6 5.9 (5.9-8.4) gm/dL Albumin 3.2 2.7 L (3.2-5.2) gm/dL Assessment and Plan - Narrative A/P Narrative: Assessment: csssi sacral area. uncontrolled diabetes gradually improving. Morbid obesity and limited mobility. Overall responding to conservative treatment. NOT for surgical debridement at this time. Plan: Continue current treatment. After discharge, will follow her at wound care center. - Time Spent With Patient Total time spent is greater than 50% in coordination of care (as documented) at patient's floor/unit and/or counseling patient: 15 - 24 minutes
[2018-04-23] MEDS: traMADol 50 MG TABLET PO PRN ×2 (11:02→16:47)
[2018-04-23] MEDS ORDERED: METHOCARBAMOL 750 MG TABLET PO PRN (21:00)
[2018-04-23] MEDS ORDERED: ATORVASTATIN 20 MG TABLET PO SCH (21:00)
[2018-04-23] MEDS ORDERED: GABAPENTIN 400 MG CAPSULE PO SCH (21:00)
[2018-04-24] MEDS: PIPERACILLIN SODIUM/TAZOBACTAM 3.375 GM in DEXTROSE 5% IN WATER 50 ML IV SCH ×3 (00:53→14:22)
[2018-04-24] MEDS: traMADol 50 MG TABLET PO PRN ×2 (04:52)
[2018-04-24] MEDS: 0.9 % SODIUM CHLORIDE 10 ML SYRINGE IV SCH (06:02)
[2018-04-24 06:25] LABS: ALT/SGPT 38 U/l (0-40); Albumin 2.8 gm/dL (3.2-5.2); Albumin/Globulin Ratio 0.8 (1.0-2.3); Alkaline Phosphatase 110 U/L (39-117); Bilirubin,Direct 0.3 mg/dL (0.0-0.3); Blood Urea Nitrogen 3 mg/dl (8-23); Gamma Glutamyl Transpeptidase 137 U/L (5-36); Uric Acid 3.9 mg/dL (2.5-8.0)
--- NOTE | 2018-04-24 07:28 | Internal Med Progress Note ---
Medical - PN: Subj Patient information: Note initiated : 04/24/18 at 7:26 am Service Date, if different from initiated Date: [] Patient: Diogo Aly a 72 y/o F admitted on 04/22/18 for wound to zaida rectal area. Chief Complaint: [] Interval history: Ms. Aly is a 72 year old F Was a secondary to wound on her sacrum. She states several days ago she started noticing painful area at the top of her buttocks. And to continue to worsen where she had a friend bring her to the ER. In the ER she was found to have a large decubitus ulcer with erythema around it and some granulation tissue in a little bit of purulence. She denies any headaches fevers chills. She has had poor oral intake past day. She says he sits in a recliner most of the day and sometimes sleeps in the recliner. No other pains or complaints. 04/23 Continues to have pain in the sacral area. Home medications clarified and restarting home pain medications and cont prn IV pain meds. No new complaints. 04/24 Events overnight. Buttocks more comfortable with dressing and care in place Review of Systems: denies headache/fever/chills/nausea/vomiting/chest or abdominal pain/cough/ dyspnea/diarrhea. Otherwise see above. - Constitutional Vitals: Vital Signs Temp Pulse Resp BP Pulse Ox 97.6 F 85 18 153/87 97 04/24/18 04:00 04/24/18 04:00 04/24/18 04:00 04/24/18 04:00 04/24/18 04:00 Period Temp Pulse Resp BP Sys/Munoz Pulse Ox Last 24 Hr 97.6 F-98.3 F 83-87 18-18 135-154/65-88 96-98 Intake and Output 04/23/18 04/24/18 04/24/18 21:59 05:59 13:59 Intake Total 2140 / 2140 300 / 300 Output Total 600 / 600 Balance 1540 / 1540 300 / 300 Weight 90.945 kg Intake & Output: Intake & Output 04/23/18 04/24/18 04/24/18 21:59 05:59 13:59 Intake Total 2140 / 2140 300 / 300 Output Total 600 / 600 Balance 1540 / 1540 300 / 300 Weight 90.945 kg Intake: IV 1100 / 1100 50 / 50 Sodium Chloride 0.9% 1,000 ml @ 1000 / 1000 100 mls/hr IV .Q10H [facility] Rx#: [id number] Zosyn 3.375 gm In Dextrose 5% 100 / 100 50 / 50 in Water 50 ml @ 100 mls/hr IV Q6H [facility] Rx#:[id number] Oral 1040 / 1040 250 / 250 Output: Void Amount 600 / 600 Other: Urine Appearance Clear Urine Color Bright Yellow Urine Odor Strong # Voids 1 1 Exam: General: Alert, Awake, No acute Distress, obese Eyes/N/T: EOMI, Head/Neck: neck supple, CV: RRR, No murmurs, normal s1/s2 Pulm: Clear b/l, no wheezing/rhonchi/rales Abd: soft, nontender, +BS x4 Ext: no clubbing/cyanosis/edema Neuro: Alert, no focal deficits, moves all extremities, Skin: warm/dry Back: Large sacral decubitus ulcer with dressing in place Medical - PN: Obj Da - Labs CBC & Chem 7: 04/23/18 04:47 04/24/18 04:46 Labs: Abnormal Lab Results 04/24/18 04/23/18 04/23/18 04:46 04:47 04:47 VBG Lactic Acid 3.3 H BUN 3 L 6 L Glucose 183 H 233 H Hemoglobin A1c Calcium 8.4 L 8.3 L Phosphorus 2.4 L Magnesium 1.5 L GGT 137 H 40 H AST 135 H Lactate Dehydrogenase 311 H C-Reactive Protein Albumin 2.8 L 2.7 L Albumin/Globulin Ratio 0.8 L 0.8 L Triglycerides 323 H 289 H Urine Glucose (UA) Urine Ketones Ur Squamous Epith Cells Urine Bacteria Urine Mucus 04/22/18 04/22/18 04/22/18 20:25 20:25 17:30 VBG Lactic Acid 2.8 H BUN Glucose Hemoglobin A1c 9.7 H Calcium Phosphorus Magnesium GGT AST Lactate Dehydrogenase C-Reactive Protein Albumin Albumin/Globulin Ratio Triglycerides Urine Glucose (UA) 150 A Urine Ketones 5/tr A Ur Squamous Epith Cells 17 H Urine Bacteria Few A Urine Mucus Many A 04/22/18 04/22/18 16:27 16:25 VBG Lactic Acid 2.9 H BUN 7 L Glucose 259 H Hemoglobin A1c Calcium Phosphorus Magnesium GGT AST Lactate Dehydrogenase C-Reactive Protein 1.3 H Albumin Albumin/Globulin Ratio 0.9 L Triglycerides Urine Glucose (UA) Urine Ketones Ur Squamous Epith Cells Urine Bacteria Urine Mucus Meds: Medications Acetaminophen (Tylenol) 650 mg PO Q6HP PRN PRN Reason: PAIN/FEVER > 101 Albuterol/Ipratropium (Duoneb) 3 ml NEB Q4HRT PRN PRN Reason: Bronchospasm Aspirin (Aspirin) 81 mg PO DAILY [facility] Last Admin: 04/23/18 09:02 Dose: 81 mg Atorvastatin Calcium (Lipitor) 40 mg PO HS [facility] Last Admin: 04/23/18 20:57 Dose: 40 mg Collagenase (Santyl Top Oint) 1 dose TOPICAL DAILY [facility] Last Admin: 04/23/18 09:03 Dose: 1 dose Dextrose (Dextrose 50%) 0 ml IV UD PRN PRN Reason: Hypoglycemia Diagnostic Test (Pha) (Accu-Chek) 1 each FS ACHS [facility] Last Admin: 04/23/18 21:01 Dose: 1 each Docusate Sodium (Colace) 100 mg PO BID [facility] Last Admin: 04/23/18 20:57 Dose: 100 mg Duloxetine HCl (Cymbalta) 60 mg PO BID [facility] Last Admin: 04/23/18 20:57 Dose: 60 mg Famotidine (Pepcid) 20 mg PO BID [facility] Last Admin: 04/23/18 20:57 Dose: 20 mg Gabapentin (Neurontin) 900 mg PO DAILY [facility] Last Admin: 04/23/18 09:01 Dose: 900 mg Gabapentin (Neurontin) 1,200 mg PO HS [facility] Last Admin: 04/23/18 20:57 Dose: 1,200 mg Glucose (Insta-Glucose) 15 gm PO PRN PRN PRN Reason: Hypoglycemia Heparin Sodium (Porcine) (Heparin) 5,000 unit SQ Q12 [facility] Last Admin: 04/23/18 20:57 Dose: 5,000 unit Piperacillin Sod/Tazobactam (Sod 3.375 gm/ Dextrose) 50 mls @ 100 mls/hr IV Q6H [facility] Last Admin: 04/24/18 05:50 Dose: 100 mls/hr Insulin Glargine (Lantus) 8 unit SQ DAILY [facility] Last Admin: 04/23/18 09:02 Dose: 8 unit Insulin Human Lispro (Humalog) 0 unit SQ ACHS [facility]; Protocol Last Admin: 04/23/18 21:08 Dose: 6 units Labetalol HCl (Trandate) 10 mg IV Q2HP PRN PRN Reason: sbp>150 Losartan Potassium (Cozaar) 100 mg PO DAILY [facility] Last Admin: 04/23/18 09:02 Dose: 100 mg Methocarbamol (Robaxin) 750 mg PO HSP PRN PRN Reason: Muscle Spasm Last Admin: 04/23/18 18:23 Dose: 750 mg Morphine Sulfate (Morphine) 2 - 4 mg IV Q4HP PRN PRN Reason: PAIN LEVEL > 6 Last Admin: 04/23/18 05:23 Dose: 2 mg Morphine Sulfate (Ms Contin) 30 mg PO TID [facility] Last Admin: 04/23/18 20:58 Dose: 30 mg Ondansetron HCl (Zofran) 4 mg IV Q6HP PRN PRN Reason: Nausea And Vomiting Oxycodone/Acetaminophen (Percocet 10-325mg) 1 tab PO Q6HP PRN PRN Reason: PAIN LEVEL 4-6 Last Admin: 04/23/18 13:36 Dose: 1 tab Sodium Chloride (Saline Flush) 10 ml IV Q8 [facility] Last Admin: 04/24/18 06:02 Dose: Not Given Tramadol HCl (Ultram) 50 mg PO Q4HP PRN PRN Reason: PAIN LEVEL 1-3 Last Admin: 04/24/18 04:52 Dose: 50 mg Medical - PN: A/P - Time Spent With Patient Total time spent is greater than 50% in coordination of care (as documented) at patient's floor/unit and/or counseling patient: - Narrative A/P Narrative: A: *Sacral decubitus ulcer, large: -lactic acidosis: VSS, afebrile, PCT low, ?metformin. does not appear to hypoperfused -resolved *Diabetes with neuropathy: A1c 9.7 -on metformin and glipizide at home *Asthma: *Obesity: *Hypertension: *GERD: *Fibromyalgia: P: - -Wound care, Dr. Dodd -Abx's will d/c as felt not needed by wound care surgeon -[facility] -pt/ot -CM for HHC needs -ppx: heparin/pepcid d/c planning Medical - PN: Qual - VTE Deep Vein Thrombosis/Pulmonary Embolism Present on Admission: No
[2018-04-24] MEDS: INSULIN GLARGINE, HUMAN 1 UNIT/0.01 ML SQ SCH (07:52)
[2018-04-24] MEDS: INSULIN LISPRO 1 UNIT/0.01 ML UNIT SQ SCH ×2 (07:52→11:43)
[2018-04-24] MEDS: ASPIRIN 81 MG TAB.CHEW PO SCH (08:19)
[2018-04-24] MEDS: morphine 30 MG TAB.SR.12H PO SCH (08:19)
[2018-04-24] MEDS: DULoxetine 30 MG CAPSULE PO SCH (08:20)
[2018-04-24] MEDS: HEPARIN 5,000 UNIT/ML VIAL SQ SCH (08:20)
[2018-04-24] MEDS: DOCUSATE SODIUM 100 MG CAPSULE PO SCH (08:20)
[2018-04-24] MEDS: GABAPENTIN 300 MG CAPSULE PO SCH (08:20)
[2018-04-24] MEDS: LOSARTAN 50 MG TABLET PO SCH (08:20)
[2018-04-24] MEDS: FAMOTIDINE 20 MG TABLET PO SCH (08:20)
[2018-04-24] MEDS: COLLAGENASE TOP OINT TUBE 30GM TOPICAL SCH (08:22)
--- NOTE | 2018-04-24 09:22 | Discharge Summary ---
Medical - DS: Prov Patient information: Note initiated : 04/24/18 at 9:21 am Service Date, if different from initiated Date: [] Patient: Diogo Aly 72 y/o F admitted on 04/22/18 for wound to zaida rectal area. Chief Complaint: [] Date of admission: 04/22/18 19:48 Discharge date: 04/24/18 Primary care physician: Tish Reynolds Consults: 04/22/18 Consult to Physician [CONS] Stat Comment: Consulting Provider: Vic Isbell Reason For Exam: Physician to Consult 04/22/18 16:21 Consult to Physician [CONS] Stat Comment: Consulting Provider: Kiel Holt Reason For Exam: Physician to Consult Medical - DS: Meds - Discharge Medications Active and Home Medications: Home Medications Biofreeze 10% Ext Aero 1 each TOPICAL TIDP PRN 03/01/15 [History Confirmed 04/23 Last Taken Unknown] albuterol sulfate HFA 90 mcg/actuation aerosol inhaler 180 mcg INHALATION Q4H PRN 03/01/15 [History Confirmed 04/23/18 Last Taken Unknown] aspirin 81 mg tablet,delayed release 81 mg PO QDAY 03/01/15 [History Confirmed 04/23/18 Last Taken Unknown] atorvastatin 40 mg tablet 40 mg PO QHS tab 03/01/15 [History Confirmed Last Taken Unknown] bacitracin-polymyxin B 500 unit-10,000 unit/gram eye ointment 1 applic OPHTHALMIC BID g 03/01/15 [History Confirmed 04/23/18 Last Taken Unknown] benzonatate 200 mg capsule 200 mg PO BID PRN cap 03/01/15 [History Confirmed Last Taken Unknown] gabapentin 300 mg capsule 900 mg PO BID cap 03/01/15 [History Confirmed Last Taken Unknown] glipizide ER 5 mg tablet, extended release 24 hr 10 mg PO QDAY 03/01/15 [ History Confirmed 04/22/18 Last Taken Unknown] ipratropium-albuterol 0.5 mg-3 mg(2.5 mg base)/3 mL nebulization soln 3 ml INHALATION QIDP PRN 03/01/15 [History Confirmed 04/23/18 Last Taken Unknown] losartan 100 mg tablet 100 mg PO QDAY 03/01/15 [History Confirmed 04/22/18 Last Taken Unknown] metformin 1,000 mg tablet 1,000 mg PO BID 03/01/15 [History Confirmed 04/22/18 Last Taken Unknown] morphine ER 30 mg tablet,extended release 30 mg PO TID tab 03/01/15 [History Confirmed 04/22/18 Last Taken Unknown] naproxen 500 mg tablet 500 mg PO ONCE PRN tab 03/01/15 [History Confirmed 04/22 Last Taken Unknown] omeprazole 20 mg tablet,delayed release 20 mg PO QDAY 03/01/15 [History Confirmed 04/22/18 Last Taken Unknown] sumatriptan 5 mg/actuation nasal spray 5 mg INTRANASAL ONCE PRN 03/01/15 [ History Confirmed 04/23/18 Last Taken Unknown] tramadol 50 mg tablet 50 mg PO Q4H PRN 03/01/15 [History Confirmed 04/22/18 Last Taken Unknown] Estradiol [Estrace] 2 mg PO QDAY 03/18/15 [History Confirmed 04/22/18 Last Taken Unknown] duloxetine 60 mg capsule,delayed release 60 mg PO BID cap 05/14/15 [History Confirmed 04/23/18 Last Taken Unknown] oxycodone-acetaminophen 10 mg-325 mg tablet 1 tab PO Q6HP PRN 07/05/15 [History Confirmed 04/22/18 Last Taken Unknown] methocarbamol 750 mg tablet 750 mg PO HSP PRN tab 10/14/15 [History Confirmed 04/22/18 Last Taken Unknown] Medical - DS: Hosp Hospital course: Ms. Aly is a 72 year old F Was a secondary to wound on her sacrum. She states several days ago she started noticing painful area at the top of her buttocks. And to continue to worsen where she had a friend bring her to the ER. In the ER she was found to have a large decubitus ulcer with erythema around it and some granulation tissue in a little bit of purulence. She denies any headaches fevers chills. She has had poor oral intake past day. She says he sits in a recliner most of the day and sometimes sleeps in the recliner. No other pains or complaints. 04/23 Continues to have pain in the sacral area. Home medications clarified and restarting home pain medications and cont prn IV pain meds. No new complaints. 04/24 No Events overnight. Buttocks more comfortable with dressing and care in place. She will follow-up with Dr. anuj burt. stable for discharge . Discharge diagnosis: Large sacral ulcer diabetes obesity - Time Spent with Patient Total time spent providing and/or coordinating discharge services: Greater than 30 minutes Medical - DS: Exam - Constitutional Vitals: Vital Signs Temp Pulse Resp BP BP Pulse Ox 04/24/18 08:00 96.8 F L 18 128/50 95 04/24/18 04:00 97.6 F 85 18 153/87 97 04/24/18 00:00 98.3 F 87 18 150/77 96 04/23/18 20:42 97.9 F 83 18 154/66 97 04/23/18 19:34 18 04/23/18 15:15 97.7 F 18 135/65 98 04/23/18 12:00 97.6 F 18 154/88 96 Intake and Output 04/23/18 04/24/18 04/24/18 21:59 05:59 13:59 Intake Total 2140 / 2140 300 / 300 Output Total 600 / 600 Balance 1540 / 1540 300 / 300 Intake: IV 1100 / 1100 50 / 50 Sodium Chloride 0.9% 1,000 ml @ 1000 / 1000 100 mls/hr IV .Q10H KALLIE Rx#: [id number] Zosyn 3.375 gm In Dextrose 5% 100 / 100 50 / 50 in Water 50 ml @ 100 mls/hr IV Q6H KALLIE Rx#:[id number] Oral 1040 / 1040 250 / 250 Output: Void Amount 600 / 600 Other: Urine Appearance Clear Urine Color Bright Yellow Urine Odor Strong # Voids 1 1 Weight 90.945 kg Medical - DS: Data Labs on day of discharge: Labs from last 24 hours 04/24/18 04/24/18 04:46 04:46 VBG Lactic Acid 1.4 Sodium 137 Potassium 4.2 Chloride 102 Carbon Dioxide 26 Anion Gap 9.0 BUN 3 L Creatinine 0.7 GFR Calculation 87 Glucose 183 H Uric Acid 3.9 Calcium 8.4 L Phosphorus 3.5 Magnesium 2.0 Total Bilirubin 0.8 Direct Bilirubin 0.3 GGT 137 H AST 135 H ALT 38 Alkaline Phosphatase 110 Lactate Dehydrogenase 311 H Total Protein 6.1 Albumin 2.8 L Globulin 3.3 Albumin/Globulin Ratio 0.8 L Triglycerides 323 H Medical - DS: A/P - Patient/Caregiver Discharge Instructions Activity: increase activity as tolerated Diet: Consistent Carbohydrate - Follow up Plan Follow up with: Tish Reynolds MD [Primary Care Provider] - Kiel Holt MD [Physician] - Disposition: Home Health Service Prognosis: Fair Rehab Potential: Fair Medical - DS: Qual - VTE Deep Vein Thrombosis/Pulmonary Embolism Present on Admission: No
== END 2018-04-24 14:15 | disposition home health service (06) | DRG 593 ==
LOC: ED 15:41 → MEDSUR 19:48
PROVIDERS: ADMIT Internal Medicine; ATTEND Internal Medicine
CPT/HCPCS: 84145; 90686; 97161; 97597; 99223; 99231; A6213; J1644; J1815; J1817; J2270; J2543; J3475; J7030; J7060; J7120

== ENCOUNTER 2018-05-29 11:02 | Inpatient (IN) ==
[2018-05-29] MEDS ORDERED: IOPAMIDOL 100 ML BOTTLE IV ONE (11:03)
[2018-05-29] MEDS ORDERED: 0.9 % SODIUM CHLORIDE 1,000 ML IV SCH (11:45)
[2018-05-29 12:19] LABS: Mean Cell Volume 88.4 fL (80.0-100.0); Mean Corpuscular HGB Conc 32.7 g/dL (31.0-36.0); Platelet Count 339 K/mcL (140-440); RBC 4.81 M/mcL (4.00-5.20); Red Cell Distribution Width 14.4 % (11.5-14.5)
[2018-05-29 12:19] LABS: Appearance,Urine HAZY; Bacteria,Urine 0 /hpf (0); Bilirubin,Urine NEG (NEG); Color,Urine YELLOW; Glucose,Urine (UA) >=500 mg/dL (NEG); Leukocyte Esterase,Urine NEG /uL (NEG); Protein,Urine 30 mg/dL (NEG); Specific Gravity,Urine 1.022 (1.000-1.035); Urine Amorphous Crystals MANY /hpf (0); Urine Blood 0.2 mg/dL (<0.03); Urine RBC 1 /hpf (0-1); Urine Squamous Epithelial Cell < 1 /hpf (0-4); Urine WBC 1 /hpf (0-4)
[2018-05-29 12:45] LABS: ALT/SGPT 11 U/l (0-40); Albumin 3.1 gm/dL (3.2-5.2); Albumin/Globulin Ratio 0.8 (1.0-2.3); Alkaline Phosphatase 98 U/L (39-117); Blood Urea Nitrogen 28 mg/dl (8-23)
[2018-05-29] MEDS ORDERED: 0.9 % SODIUM CHLORIDE 1,000 ML IV ONE (12:56)
[2018-05-29] MEDS ORDERED: PIPERACILLIN SODIUM/TAZOBACTAM 3.375 GM in DEXTROSE 5% IN WATER 50 ML IV ONE (13:07)
[2018-05-29 13:28] LABS: Band Neutrophils % 2 % (0-10); Basophils % (Manual) 2 % (0-2); Eosinophils % (Manual) 1 % (0-7); Lymphocytes % 12 % (15-49); Monocytes % (Manual) 9 % (1-12); Platelet Estimate NORMAL (NORMAL); RBC Morphology NORMAL (NORMAL); Segmented Neutrophils % 74 % (38-78)
--- NOTE | 2018-05-29 13:53 | XRay Report ---
HISTORY: Altered mental status FINDINGS: The lungs are clear and normally expanded. The heart size, pulmonary vasculature, mediastinum, john and pleura are normal. There has been no significant change since 12/29/11. IMPRESSION: Normal chest Interpreted and Authenticated by: Danish Davis 05/29/18
--- NOTE | 2018-05-29 14:33 | XRay Report ---
HISTORY: Fell with left hip injury FINDINGS: No pelvic or hip fracture present. The joint spaces of both hips are normal in width. There are spurs along the margin of the left greater trochanter and along the lateral borders of both iliac crests. There is degenerative disc disease and arthritis throughout the lumbar spine. Comparison with the prior exam from 09/28/08 shows little change in appearance of the hip. IMPRESSION: Normal left hip, without evidence of a fracture Interpreted and Authenticated by: Danish Davis 05/29/18
--- NOTE | 2018-05-29 14:40 | Cat Scan Report ---
History: Fell, altered mental status and weakness TECHNIQUE: The brain was imaged without contrast at 2.5 mm intervals. Radiation exposure was limited using dose reduction technology. There is a 3 x 5 mm lacunar infarct in the anterior limb of the left internal capsule. There is more subtle but larger white matter infarct in the kc radiata lateral to the head and anterior body of the right caudate nucleus. Patchy areas of decreased attenuation are present in the centrum semiovale in the frontal and parietal lobes bilaterally. There is mild cerebral atrophy. No intracranial hemorrhage or mass effect are present. The ventricles are prominent but proportionate to the atrophy. No abnormal extra-axial fluid collection is present. The bone windows show no skull fracture. IMPRESSION: Lacunar infarcts in the anterior limb of the left internal capsule and in the anterior right kc radiata Interpreted and Authenticated by: Danish Davis 05/29/18
--- NOTE | 2018-05-29 14:53 | Cat Scan Report ---
History: Increased weakness, altered mental status and infection TECHNIQUE: Following injection of intravenous contrast the patient was scanned from the thoracic inlet to the symphysis pubis during the portal venous phase. Sagittal and coronal reformats were created. CHEST: There is enlargement of the left lobe of the thyroid due to a goiter. No discrete mass is seen. The lungs are clear and well-expanded, without evidence of pneumonia or inflammation. Minor dependent atelectasis is present in the left lung base. There is no mass, adenopathy or pleural effusion. Patient has an incidental azygos lobe. The heart is normal in size and contour. A small amount of calcified plaque is present in the coronary arteries. Abdomen and pelvis: The liver is normal in size but there is mild generalized fatty infiltration. The wall the gallbladder is abnormally thickened along the anterior fundus. In the region of greatest thickening there is a small bubble of air measuring 2 x 6 mm size. No stone is seen within the gallbladder. Intrahepatic ducts are nondilated. Common bile duct measures up to 8 mm which is upper limits of normal. No stone or mass are seen at the ampulla. The spleen is normal size and homogeneous. There is no evidence for mass or inflammation in the pancreas. The pancreatic duct is nondilated. The adrenals are normal and symmetric. There are two contiguous calyceal stones in the lower portion left kidney. The larger measures 4 mm. Medially in the lower pole of left kidney there is a 1.8 cm simple cyst. The right kidney is normal without evidence of a mass, cyst or calculus. No hydronephrosis is present in either kidney. Patient has a small fat-containing umbilical hernia. The bowel gas pattern is normal without evidence of obstruction, inflammation or diverticulitis. A couple noninflamed diverticula are seen in the sigmoid colon. The appendix, uterus and ovaries are surgically absent. The bladder is unopacified but appears normal. Degenerative changes are present throughout the spine. There is fusion across the L4-5 disc space. IMPRESSION: Focal thickening of the wall of the gallbladder with a bubble of air within the wall . At the site of greatest thickening, the wall measures up to 9 mm. This raises the possibility of gangrenous cholecystitis. Normal chest Small nonobstructing stones in the lower pole of left kidney Dr. Mack was called with the results Interpreted and Authenticated by: Danish Davis 05/29/18
--- NOTE | 2018-05-29 16:17 | Emergency Department Note ---
Altered Mental Status HPI - General Chief Complaint: Altered Mental Status Stated Complaint: weakness, altered mental status Time Seen by Provider: 05/29/18 11:08 Source: patient, EMS Mode of arrival: EMS Limitations: altered mental status - History of Present Illness HPI Narrative: 73-year-old female who was found on the floor could not get up. Apparently she falls frequently and cannot get up. 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 She stated that she been outside all night but clearly this was not the case. Her roommate notes that she is been more confused the last couple of days. I am unable to get any meaningful hist ory from her besides the fall. The roommate notes that she was not there this morning when the patient was discovered. No meaningful review of systems despite attempts She does get wound care for sacral decubitus ulcer which was not bandaged today as it was supposed to have been - Related Data Home Medications Medication Instructions Recorded Confirmed gabapentin 300 mg capsule 900 mg PO BID cap 03/01/15 05/29/18 glipizide ER 5 mg tablet, extended 10 mg PO QDAY 03/01/15 05/29/18 release 24 hr losartan 100 mg tablet 100 mg PO QDAY 03/01/15 05/29/18 metformin 1,000 mg tablet 1,000 mg PO BID 03/01/15 05/29/18 morphine ER 30 mg tablet,extended 30 mg PO TID tab 03/01/15 05/29/18 release naproxen 500 mg tablet 500 mg PO ONCE PRN tab 03/01/15 05/29/18 omeprazole 20 mg tablet,delayed 20 mg PO QDAY 03/01/15 05/29/18 release tramadol 50 mg tablet 50 mg PO Q4H PRN 03/01/15 05/29/18 Estradiol [Estrace] 2 mg PO QDAY 03/18/15 05/29/18 oxycodone-acetaminophen 10 mg-325 1 tab PO Q6HP PRN 07/05/15 05/29/18 mg tablet methocarbamol 750 mg tablet 750 mg PO HSP PRN tab 10/14/15 05/29/18 hydrOXYzine [Atarax] 25 mg PO QID PRN 01/27/19 01/27/19 Allergies Allergy/AdvReac Type Severity Reaction Status Date / Time vancomycin Allergy Severe Swelling Verified 04/23/18 09:30 of Lip/Tongue/Throat diphenhydramine Allergy Unknown Unknown Verified 04/22/18 22:23 [From Benadryl] sulfasalazine [Sulfasalazine] Allergy Unknown Unknown Verified 04/22/18 22:23 aspirin [From Percodan] AdvReac Mild Itching Verified 05/30/18 07:00 diazepam [From Valium] AdvReac Mild Itching Verified 05/30/18 07:00 hydrocodone AdvReac Mild Itching Verified 04/24/18 09:53 oxycodone [From Percodan] AdvReac Mild Itching Verified 05/30/18 07:00 Review of Systems Limitations: ROS unobtainable due to patients medical condition Past Medical History - Past Medical History Attestation: Yes: The following information was validated with the patient. [facility] Narrative: Family History Mother Cerebrovascular accident (CVA), Onset Age: 76 Malignant neoplasm Disorder of gallbladder Sister Malignant neoplasm of breast, Onset Age: 75 Unknown Disorder of endocrine system Essential hypertension Arthritis Allergic rhinitis Father Myocardial Infarction, Onset Age: 84 Past Surgical History Hx of tonsillectomy (Chronic) H/O knee surgery (Chronic) Hx of esophagogastroduodenoscopy (Chronic 08/30/13) H/O colonoscopy (Chronic) H/O adenoidectomy (Chronic) History of fracture of wrist (Chronic) History of appendectomy (Chronic) History of trigger finger (Chronic) History of carpal tunnel surgery (Chronic) History of laminectomy (Chronic) Medical History Disorder of lumbar spine (Chronic) Chronic pain (Chronic) Sicca complex (Chronic) Fibromyalgia (Chronic) Polyarthritis (Chronic) Psoriasis (Chronic) Pain in limb (Chronic) Osteoarthritis (Chronic) Neuropathy, lower extremity (Chronic) Menopausal syndrome (Chronic) Hyperlipidemia (Chronic) Gastroesophageal reflux (Chronic) Depressive disorder (Chronic) DJD (degenerative joint disease) of knee (Chronic) Cough (Chronic) Cellulitis and abscess of trunk (Chronic) Inflammatory breast disease (Chronic) Anxiety (Chronic) Gout (Chronic) Obesity (Chronic) Bilateral knee pain (Chronic) Carpal tunnel syndrome (Chronic) Back pain (Chronic) Migraine (Chronic) Hormone replacement therapy (Chronic) Asthma (Chronic) Hypothyroidism (Chronic) Peripheral neuropathy (Chronic) Diabetes mellitus, type II (Chronic) Pure hypercholesterolemia (Chronic) Essential hypertension (Chronic) Sjogrens syndrome (Chronic) Urinary frequency (Chronic) History of hysterectomy (Chronic) - Social History smoking status: Former smoker Physical Exam Obese female no acute distress normocephalic atraumatic. She has severe psoriasis along the scalp line and some into the perioral area. No nasal discharge or congestion. Conjunctive are clear sclerae white and anicteric. Oropharynx is pink and moist. Neck is supple without lymphadenopathy thyromegaly. Heart is rate rate and rhythm no murmur appreciated. Lungs clear to auscultation bilaterally without wheezes rales rhonchi or respiratory distress. Abdomen is soft generally tender diffusely but no point tenderness. No pedal edema +2 radial pulse. She is generally confused and unable to give me any reliable history. I did attempt to do a full 12 point review of systems but I really could not get much in the way of reliable review of systems either. Somnolent and globally weak. I did do a quick skin exam and looked at the sacral ulcer which was supposed to have been read bandaged today. It is a stage II ulcer with eschar not appear infected Limitations: altered mental status Course Vital Signs Temperature 97.5 F 05/29/18 11:02 Pulse Rate 67 05/29/18 11:02 Respiratory Rate 22 05/29/18 11:02 Blood Pressure 126/104 05/29/18 11:02 Pulse Oximetry (%) 100 05/29/18 11:02 Temperature 99.0 F 05/30/18 09:01 Pulse Rate 75 05/30/18 08:01 Respiratory Rate 18 05/30/18 09:01 Blood Pressure 155/61 05/30/18 09:01 Pulse Oximetry (%) 97 05/30/18 08:01 Altered Mental Status - Lab Data Lab results reviewed: Yes I reviewed the patient's lab results. Result diagrams: 05/30/18 03:50 05/30/18 03:50 Lab Results 05/29/18 05/29/18 05/29/18 Range/Units 11:24 11:24 11:24 WBC 13.3 H (4.5-11.0) K/mcL RBC 4.81 (4.00-5.20) M/mcL Hgb 13.9 (12.0-15.0) g/dL Hct 42.5 (36.0-48.0) % MCV 88.4 (80.0-100.0) fL MCH 28.9 (26.0-34.0) pg MCHC 32.7 (31.0-36.0) g/dL RDW 14.4 (11.5-14.5) % Plt Count 339 (140-440) K/mcL MPV 8.8 (7.4-10.4) fL Total Counted 100 Seg Neutrophils % 74 (38-78) % Band Neutrophils % 2 (0-10) % Lymphocytes % 12 L (15-49) % Monocytes % (Manual) 9 (1-12) % Eosinophils % (Manual) 1 (0-7) % Basophils % (Manual) 2 (0-2) % Platelet Estimate Normal (NORMAL) RBC Morphology Normal (NORMAL) VBG Lactic Acid 3.8 H (0.5-2.0) mmol/L Sodium 136 (133-145) mmol/L Potassium 4.8 (3.3-5.1) mmol/L Chloride 96 (96-108) mmol/L Carbon Dioxide 19 L (22-30) mmol/L Anion Gap 21.0 H (8-16) BUN 28 H (8-23) mg/dl Creatinine 1.0 (0.6-1.1) mg/dl GFR Calculation 56 Glucose 310 H (70-105) mg/dL Calcium 9.1 (8.6-10.4) mg/dl Total Bilirubin 1.1 H (0.0-1.0) mg/dL AST 25 (0-37) U/l ALT 11 (0-40) U/l Alkaline Phosphatase 98 (39-117) U/L Total Protein 7.1 (5.9-8.4) gm/dL Albumin 3.1 L (3.2-5.2) gm/dL Globulin 4.0 H (2.2-3.7) gm/dL Albumin/Globulin Ratio 0.8 L (1.0-2.3) Urine Color Urine Appearance Urine pH (5.0-9.0) Ur Specific [place] (1.000-1.035) Urine Protein (NEG) mg/dL Urine Glucose (UA) (NEG) mg/dL Urine Ketones (NEG) mg/dL Urine Occult Blood (<0.03) mg/dL Urine Nitrate (NEG) Urine Bilirubin (NEG) mg/dL Urine Urobilinogen (NEG) mg/dL Ur Leukocyte Esterase (NEG) /uL Urine RBC (0-1) /hpf Urine WBC (0-4) /hpf Ur Squamous Epith Cells (0-4) /hpf Amorphous Crystals (0) /hpf Urine Bacteria (0) /hpf Ur Culture Indicated? 05/29/18 Range/Units 11:25 WBC (4.5-11.0) K/mcL RBC (4.00-5.20) M/mcL Hgb (12.0-15.0) g/dL Hct (36.0-48.0) % MCV (80.0-100.0) fL MCH (26.0-34.0) pg MCHC (31.0-36.0) g/dL RDW (11.5-14.5) % Plt Count (140-440) K/mcL MPV (7.4-10.4) fL Total Counted Seg Neutrophils % (38-78) % Band Neutrophils % (0-10) % Lymphocytes % (15-49) % Monocytes % (Manual) (1-12) % Eosinophils % (Manual) (0-7) % Basophils % (Manual) (0-2) % Platelet Estimate (NORMAL) RBC Morphology (NORMAL) VBG Lactic Acid (0.5-2.0) mmol/L Sodium (133-145) mmol/L Potassium (3.3-5.1) mmol/L Chloride (96-108) mmol/L Carbon Dioxide (22-30) mmol/L Anion Gap (8-16) BUN (8-23) mg/dl Creatinine (0.6-1.1) mg/dl GFR Calculation Glucose (70-105) mg/dL Calcium (8.6-10.4) mg/dl Total Bilirubin (0.0-1.0) mg/dL AST (0-37) U/l ALT (0-40) U/l Alkaline Phosphatase (39-117) U/L Total Protein (5.9-8.4) gm/dL Albumin (3.2-5.2) gm/dL Globulin (2.2-3.7) gm/dL Albumin/Globulin Ratio (1.0-2.3) Urine Color Yellow Urine Appearance Hazy Urine pH 5.0 (5.0-9.0) Ur Specific [place] 1.022 (1.000-1.035) Urine Protein 30 A (NEG) mg/dL Urine Glucose (UA) >=500 A (NEG) mg/dL Urine Ketones 20 A (NEG) mg/dL Urine Occult Blood 0.2 A (<0.03) mg/dL Urine Nitrate Neg (NEG) Urine Bilirubin Neg (NEG) mg/dL Urine Urobilinogen 4.0 A (NEG) mg/dL Ur Leukocyte Esterase Neg (NEG) /uL Urine RBC 1 (0-1) /hpf Urine WBC 1 (0-4) /hpf Ur Squamous Epith Cells < 1 (0-4) /hpf Amorphous Crystals Many A (0) /hpf Urine Bacteria 0 (0) /hpf Ur Culture Indicated? No - Radiology Data Radiology results reviewed: Yes I reviewed the patient's radiology results. Ultrasound shows cholecystitis with multiple gallstones Initial CT scan of the abdomen pelvis showed concern for gangrenous gallbladder which is why the ultrasound above was done. - EKG Data EKG attestation: Yes I reviewed and interpreted this EKG. EKG results narrative: EKG shows Q waves in 3 and aVF. Rate of 31. Abnormal R wave progression. Sinus rhythm Disposition Pt seen by [facility] EPIDEMIOLOGIST/PA only: No Clinical Impression: Cholecystitis, SIRS (systemic inflammatory response syndrome), Sacral decubitus ulcer, stage II Hyperglycemia due to type 2 diabetes mellitus Qualifiers: Diabetes mellitus long-term insulin use: with long-term use Qualified Code(s): E11.65 - Type 2 diabetes mellitus with hyperglycemia Summary: Concerns for Sirs versus sepsis so cultures were done. Laboratory ordered as well as CT scan. IV fluids started and Zosyn given Results as above. Discussed case with Dr. Antonio Kulkarni, general surgeon who agreed to consult on the patient. Discussed patient with dr. Isbell, hospitalist who agreed to accept patient for further care and evaluation Disposition: Xfer As Inpt ([facility]) Condition: Fair
--- NOTE | 2018-05-29 17:09 | Internal Med History&Physical ---
Medical - H&P: [facility] Patient information: Note initiated : 05/29/18 at 5:05 pm Service Date, if different from initiated Date: [] Patient: Diogo Aly a 73 y/o F admitted on for weakness, altered mental status. Chief Complaint: [] History of present illness: Ms. Aly is a 73 year old F who was brought in for altered mental status. History is difficult to obtain from patient as she is slow to answer and appears confused. Often times repeating herself. There was a report that she was outside all night which I have a hard time believing, the patient could not help me with that history. In asking her what brought her in she started talking about a fall that she had on her buttocks when asked if he was today she said yes. She does complain of fevers and chills and headache denies abdominal pain until I palpate her abdomen. In the ED she was found to have a mild leukocytosis with a elevated lactate up to 3.8. 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 She also had a CT abdomen pelvis which was concerning for gangrenous gallbladder however patient underwent ultrasound which showed that what appeared to be gas bubble was a stone but there is still was evidence that is concerning for cholecystitis. Thus Dr. Kulkarni was contacted. Review of Systems: Pertinent positives as above. Denies /nausea/vomiting/chest or abdominal pain/cough/dyspnea/diarrhea. Remaining 10 point review of systems reviewed negative Medical - H&P: PMH Medical history: Medical - H&P: PMH Medical history: All Active Problems Disorder of lumbar spine (Chronic) Chronic pain (Chronic) Sicca complex (Chronic) Fibromyalgia (Chronic) Polyarthritis (Chronic) Hx of tonsillectomy (Chronic) H/O knee surgery (Chronic) Hx of esophagogastroduodenoscopy (Chronic 08/30/13) H/O colonoscopy (Chronic) H/O adenoidectomy (Chronic) Psoriasis (Chronic) Pain in limb (Chronic) Osteoarthritis (Chronic) Neuropathy, lower extremity (Chronic) Menopausal syndrome (Chronic) Hyperlipidemia (Chronic) Gastroesophageal reflux (Chronic) Depressive disorder (Chronic) DJD (degenerative joint disease) of knee (Chronic) Cough (Chronic) Cellulitis and abscess of trunk (Chronic) Inflammatory breast disease (Chronic) Anxiety (Chronic) Gout (Chronic) Obesity (Chronic) Bilateral knee pain (Chronic) Carpal tunnel syndrome (Chronic) Back pain (Chronic) Migraine (Chronic) Hormone replacement therapy (Chronic) Asthma (Chronic) Hypothyroidism (Chronic) Peripheral neuropathy (Chronic) Diabetes mellitus, type II (Chronic) Pure hypercholesterolemia (Chronic) Essential hypertension (Chronic) Sjogrens syndrome (Chronic) Urinary frequency (Chronic) History of fracture of wrist (Chronic) History of appendectomy (Chronic) History of hysterectomy (Chronic) History of trigger finger (Chronic) History of carpal tunnel surgery (Chronic) History of laminectomy (Chronic) Past Surgical History Hx of tonsillectomy (Chronic) H/O knee surgery (Chronic) Hx of esophagogastroduodenoscopy (Chronic 08/30/13) H/O colonoscopy (Chronic) H/O adenoidectomy (Chronic) History of fracture of wrist (Chronic) History of appendectomy (Chronic) History of hysterectomy (Chronic) History of trigger finger (Chronic) History of carpal tunnel surgery (Chronic) History of laminectomy (Chronic) Family History Mother Cerebrovascular accident (CVA), Onset Age: 76 Malignant neoplasm Disorder of gallbladder Sister Malignant neoplasm of breast, Onset Age: 75 Unknown Disorder of endocrine system Essential hypertension Arthritis Allergic rhinitis Father Myocardial Infarction, Onset Age: 84 Social History Quit smoking 1982 drinks alcohol rarely Ambulates with a walker lives at home with a friend Medical - H&P: Meds Home Medications Medication Instructions Recorded Confirmed Type gabapentin 300 mg capsule 900 mg PO BID cap 03/01/15 05/29/18 History glipizide ER 5 mg tablet, extended 10 mg PO QDAY 03/01/15 05/29/18 History release 24 hr losartan 100 mg tablet 100 mg PO QDAY 03/01/15 05/29/18 History metformin 1,000 mg tablet 1,000 mg PO BID 03/01/15 05/29/18 History morphine ER 30 mg tablet,extended 30 mg PO TID tab 03/01/15 05/29/18 History release naproxen 500 mg tablet 500 mg PO ONCE PRN tab 03/01/15 05/29/18 History omeprazole 20 mg tablet,delayed 20 mg PO QDAY 03/01/15 05/29/18 History release tramadol 50 mg tablet 50 mg PO Q4H PRN 03/01/15 05/29/18 History Estradiol [Estrace] 2 mg PO QDAY 03/18/15 05/29/18 History oxycodone-acetaminophen 10 mg-325 1 tab PO Q6HP PRN 07/05/15 05/29/18 History mg tablet methocarbamol 750 mg tablet 750 mg PO HSP PRN tab 10/14/15 05/29/18 History hydrOXYzine [Atarax] 25 mg PO QID PRN 05/29/18 05/29/18 History Allergies Allergy/AdvReac Type Severity Reaction Status Date / Time vancomycin Allergy Severe Swelling Verified 04/23/18 09:30 of Lip/Tongue/Throat diazepam [From Valium] Allergy Unknown Itching Verified 04/22/18 22:23 diphenhydramine Allergy Unknown Unknown Verified 04/22/18 22:23 [From Benadryl] sulfasalazine [Sulfasalazine] Allergy Unknown Unknown Verified 04/22/18 22:23 hydrocodone AdvReac Mild Itching Verified 04/24/18 09:53 aspirin [From Percodan] AdvReac Unknown Itching Verified 04/24/18 09:53 oxycodone [From Percodan] AdvReac Unknown Itching Verified 04/24/18 09:53 Medical - H&P: Exam - Constitutional Vitals: Temp Pulse Resp BP Pulse Ox 97.5 F 91 H 17 132/65 100 05/29/18 11:02 05/29/18 16:31 05/29/18 16:57 05/29/18 16:57 05/29/18 16:31 Exam: General: Awake, but somewhat drowsy, No acute Distress, obese Eyes/N/T: EOMI, PEERL, DMM Head/Neck: neck supple, normocephalic atraumatic CV: RRR, 2/6 SM, normal s1/s2 Pulm: Clear b/l, no wheezing/rhonchi/rales Abd: soft, TTP upper quads, +BS x4 Ext: no clubbing/cyanosis/edema, 2+ peripheral pulse, ~3sec cap refill Neuro: awake, no focal deficits, moves all extremities to command, CN 2-12 grossly intact, symmetrical strength b/l upper/lower but weak, sensations intact b/l upper/lower. slow to answer questions and sometimes repeating herself. She is oriented to herself and to "hospital" but could not tell me what hospital, she could not tell me the month or the year or the president of [facility]. Skin: warm/dry Medical - H&P: Reslt - Labs CBC & Chem 7: 05/29/18 11:24 05/29/18 11:24 Labs: Short CBC 05/29/18 Range/Units 11:24 WBC 13.3 H (4.5-11.0) K/mcL Hgb 13.9 (12.0-15.0) g/dL Hct 42.5 (36.0-48.0) % Plt Count 339 (140-440) K/mcL BMP 05/29/18 11:24 Sodium 136 Potassium 4.8 Chloride 96 Carbon Dioxide 19 L BUN 28 H Creatinine 1.0 Glucose 310 H Calcium 9.1 Liver Function 05/29/18 Range/Units 11:24 Total Bilirubin 1.1 H (0.0-1.0) mg/dL AST 25 (0-37) U/l ALT 11 (0-40) U/l Alkaline Phosphatase 98 (39-117) U/L Albumin 3.1 L (3.2-5.2) gm/dL Urine 05/29/18 Range/Units 11:25 Urine Color Yellow Urine Appearance Hazy Urine pH 5.0 (5.0-9.0) Ur Specific [place] 1.022 (1.000-1.035) Urine Protein 30 A (NEG) mg/dL Urine Glucose (UA) >=500 A (NEG) mg/dL - Impressions Ultrasound with findings concerning for cholecystitis CT brain with old infarct noted Medical - H&P: A/P - Narrative A/P Narrative: A: *Acute Cholecystitis: *Severe Sepsis: lacate 3.8 *AMS: 2/2 above *Diabetes w/neuropathy: *Asthma: *Obesity: *HTN: *GERD: *Depression/Anxiety/Fibromyalgia: *Sacral decubitus: Follows with wound care *chronic pain: P: -Zosyn, pending BC -IVF's -f/u lactate -Surgery consulted -Wound care, -SSI - -pt/ot -ppx: heparin/pepcid full code
[2018-05-29] MEDS ORDERED: oxyCODONE/APAP 10/325MG TABLET PO PRN (17:47)
[2018-05-29] MEDS ORDERED: PROMETHAZINE 25 MG/ML VIAL IV PRN (17:47)
[2018-05-29] MEDS ORDERED: IPRATROPIUM/ALBUTEROL 3 ML AMPUL.NEB NEB PRN (17:47)
[2018-05-29] MEDS ORDERED: BISACODYL 10 MG SUPP.RECT PR PRN (17:47)
[2018-05-29] MEDS ORDERED: hydrOXYzine 25 MG TABLET PO PRN (17:47)
[2018-05-29] MEDS ORDERED: ACETAMINOPHEN 325 MG TABLET PO PRN (17:47)
[2018-05-29] MEDS ORDERED: traMADol 50 MG TABLET PO PRN (17:47)
[2018-05-29] MEDS ORDERED: ONDANSETRON 4 MG/2 ML VIAL IV PRN (17:47)
[2018-05-29] MEDS ORDERED: SENNOSIDES 1 TABLET PO PRN (17:47)
[2018-05-29] MEDS ORDERED: DEXTROSE 50% 50 ML VIAL IV PRN (17:47)
[2018-05-29] MEDS ORDERED: DEXTROSE 31 GM ORAL.SUSP PO PRN (17:47)
[2018-05-29] MEDS: INSULIN LISPRO 1 UNIT/0.01 ML UNIT SQ SCH ×2 (18:37→21:35)
[2018-05-29] MEDS: 0.9 % SODIUM CHLORIDE 1,000 ML IV SCH (18:42)
--- NOTE | 2018-05-29 19:08 | Ultrasound Report ---
History: Thickened gallbladder wall possible aneurysms cholecystitis seen on CT scan FINDINGS: The patient was technically difficult to scan due to large body habitus. There are multiple stones within the gallbladder. On the CT scan the stones were not calcified. These are probably cholesterol stones which would account for the appearance of air within the lumen. What was thought to represent air within the gallbladder was most likely fat/cholesterol within the stones. There is asymmetric focal thickening of the gallbladder wall. It measures up to 7 mm. The patient was tender while scanning over the gallbladder. No abscess is seen.. The intrahepatic ducts are nondilated. The common bile duct measures up to 8 mm. The liver is mildly enlarged and echogenic. This is due to fatty infiltration. No liver mass is seen. The pancreas is obscured by bowel gas. No ascites is present. IMPRESSION: Cholelithiasis and cholecystitis but without evidence of gangrenous cholecystitis Dr. Mack was called with the results Interpreted and Authenticated by: Danish Davis 05/29/18
[2018-05-29] MEDS: PIPERACILLIN SODIUM/TAZOBACTAM 3.375 GM in DEXTROSE 5% IN WATER 50 ML IV SCH (19:24)
--- NOTE | 2018-05-29 20:40 | General Surgery Consult Note ---
History of Present Illness Patient information: Note initiated : 05/29/18 at 8:38 pm Service Date, if different from initiated Date: [] Patient: Diogo Aly 73 y/o F admitted on 05/29/18 for weakness, altered mental status. Chief Complaint: [] Reason for consult: abdominal pain Requesting physician: Vic Isbell History of present illness: 73-year-old female who is transferred from home by EMS to the emergency room.she is admitted with poor mental status with elevated white count of 13.3 and lactate of 3.8. Her BUN is 28 and her creatinine 1.0. Her pro calcitonin is 1.16. CT of the abdomen was suspicious for gangrenous cholecystitis but upper abdominal ultrasound only showed extensive gallstone disease with thickened gallbladder wall and tenderness. Right subcostal area compatible with cholecystitis. She has been started on treatment by the hospitalist with presumptive diagnosis of SIRS due to inflamed gallbladder. She will be hydrated and followed up with plans for urgent cholecystectomy if needed. Review of Systems ROS unobtainable: due to mental status (patient does not answer any questions and review of system cannot be done effectively) Past History Past medical history: Medical history is taken from the record since patient cannot answer questions SICCA Complex Polyarthritis Peripheral neuropathy Depression with anxiety Degenerative joint disease Diabetes mellitus2 Hypertension Sjogren's syndrome Asthma History of decubitus ulcer with recent hospitalization for same Past surgical history: Knee surgery Appendectomy Hysterectomy Laminectomy Carpal tunnel syndrome Past family history: Breast cancer Hypertension Coronary artery disease Past social history: Former smoker Occasional alcohol drink Former substance abuse Medications and Allergies Home Medications Medication Instructions Recorded Confirmed Type gabapentin 300 mg capsule 900 mg PO BID cap 03/01/15 05/29/18 History glipizide ER 5 mg tablet, extended 10 mg PO QDAY 03/01/15 05/29/18 History release 24 hr losartan 100 mg tablet 100 mg PO QDAY 03/01/15 05/29/18 History metformin 1,000 mg tablet 1,000 mg PO BID 03/01/15 05/29/18 History morphine ER 30 mg tablet,extended 30 mg PO TID tab 03/01/15 05/29/18 History release naproxen 500 mg tablet 500 mg PO ONCE PRN tab 03/01/15 05/29/18 History omeprazole 20 mg tablet,delayed 20 mg PO QDAY 03/01/15 05/29/18 History release tramadol 50 mg tablet 50 mg PO Q4H PRN 03/01/15 05/29/18 History Estradiol [Estrace] 2 mg PO QDAY 03/18/15 05/29/18 History oxycodone-acetaminophen 10 mg-325 1 tab PO Q6HP PRN 07/05/15 05/29/18 History mg tablet methocarbamol 750 mg tablet 750 mg PO HSP PRN tab 10/14/15 05/29/18 History hydrOXYzine [Atarax] 25 mg PO QID PRN 05/29/18 05/29/18 History Allergies Allergy/AdvReac Type Severity Reaction Status Date / Time vancomycin Allergy Severe Swelling Verified 04/23/18 09:30 of Lip/Tongue/Throat diphenhydramine Allergy Unknown Unknown Verified 04/22/18 22:23 [From Benadryl] sulfasalazine [Sulfasalazine] Allergy Unknown Unknown Verified 04/22/18 22:23 aspirin [From Percodan] AdvReac Mild Itching Verified 05/30/18 07:00 diazepam [From Valium] AdvReac Mild Itching Verified 05/30/18 07:00 hydrocodone AdvReac Mild Itching Verified 04/24/18 09:53 oxycodone [From Percodan] AdvReac Mild Itching Verified 05/30/18 07:00 Exam Temp Pulse Resp BP Pulse Ox 97.8 F 85 20 155/66 100 05/29/18 18:00 05/29/18 20:17 05/29/18 20:17 05/29/18 18:00 05/29/18 18:00 - General physical appearance well developed, well nourished, moderate distress, moderate pain, chronically ill, obese - Eyes PERRL, normal ocular movement - ENT normal pinna, normal nares, normal mucosa, no congestion, decreased hearing - Head Head exam IM: Present: atraumatic, normal inspection, normocephalic - Neck no masses, no bruits, trachea midline, no lymphadenopathy, no venous distension - Cardiovascular Cardiovascular exam IM: Present: normal rate and rhythm, RRR, +S1, +S2, systolic murmur (grade 2 systolic ejection murmur). Absent: JVD - Respiratory normal expansion, normal respiratory effort, clear to auscultation - Abdomen Abdomen: Present: tender (bilateral upper abdominal tenderness; good active bowel sounds; obese) Hernia: Present: none - Genitourinary Present: normal external genitalia - Rectum Rectum: Present: normal sphincter tone, no hemorrhoids, no tenderness, no juan carlos s, no bleeding - Integumentary Present: no growths, no abnormal pigmentation, other ( extensive superficial abrasions on extremities suspicious for scratches; 3 x 2 cm presacral ulceration clinical grade 2) - Neurologic Present: other ( no detectable motor or sensory deficit) - Musculoskeletal Present: other (gait and stance cannot be tested) - Psychiatric Present: oriented to person, other ( altered mental status with poor response to question) Results - Labs 05/30/18 03:50 05/30/18 03:50 Abnormal lab results 05/29/18 05/29/18 05/29/18 Range/Units 11:24 11:24 11:24 WBC 13.3 H (4.5-11.0) K/mcL Lymphocytes % 12 L (15-49) % VBG Lactic Acid 3.8 H (0.5-2.0) mmol/L Carbon Dioxide 19 L (22-30) mmol/L Anion Gap 21.0 H (8-16) BUN 28 H (8-23) mg/dl Glucose 310 H (70-105) mg/dL Total Bilirubin 1.1 H (0.0-1.0) mg/dL Albumin 3.1 L (3.2-5.2) gm/dL Globulin 4.0 H (2.2-3.7) gm/dL Albumin/Globulin Ratio 0.8 L (1.0-2.3) Urine Protein (NEG) mg/dL Urine Glucose (UA) (NEG) mg/dL Urine Ketones (NEG) mg/dL Urine Occult Blood (<0.03) mg/dL Urine Urobilinogen (NEG) mg/dL Amorphous Crystals (0) /hpf 05/29/18 Range/Units 11:25 WBC (4.5-11.0) K/mcL Lymphocytes % (15-49) % VBG Lactic Acid (0.5-2.0) mmol/L Carbon Dioxide (22-30) mmol/L Anion Gap (8-16) BUN (8-23) mg/dl Glucose (70-105) mg/dL Total Bilirubin (0.0-1.0) mg/dL Albumin (3.2-5.2) gm/dL Globulin (2.2-3.7) gm/dL Albumin/Globulin Ratio (1.0-2.3) Urine Protein 30 A (NEG) mg/dL Urine Glucose (UA) >=500 A (NEG) mg/dL Urine Ketones 20 A (NEG) mg/dL Urine Occult Blood 0.2 A (<0.03) mg/dL Urine Urobilinogen 4.0 A (NEG) mg/dL Amorphous Crystals Many A (0) /hpf Diabetes panel 05/29/18 Range/Units 11:24 Sodium 136 (133-145) mmol/L Potassium 4.8 (3.3-5.1) mmol/L Chloride 96 (96-108) mmol/L Carbon Dioxide 19 L (22-30) mmol/L BUN 28 H (8-23) mg/dl Creatinine 1.0 (0.6-1.1) mg/dl Glucose 310 H (70-105) mg/dL Calcium 9.1 (8.6-10.4) mg/dl AST 25 (0-37) U/l ALT 11 (0-40) U/l Alkaline Phosphatase 98 (39-117) U/L Total Protein 7.1 (5.9-8.4) gm/dL Albumin 3.1 L (3.2-5.2) gm/dL Calcium panel 05/29/18 Range/Units 11:24 Calcium 9.1 (8.6-10.4) mg/dl Albumin 3.1 L (3.2-5.2) gm/dL Pituitary panel 05/29/18 Range/Units 11:24 Sodium 136 (133-145) mmol/L Potassium 4.8 (3.3-5.1) mmol/L Chloride 96 (96-108) mmol/L Carbon Dioxide 19 L (22-30) mmol/L BUN 28 H (8-23) mg/dl Creatinine 1.0 (0.6-1.1) mg/dl Glucose 310 H (70-105) mg/dL Calcium 9.1 (8.6-10.4) mg/dl Adrenal panel 05/29/18 Range/Units 11:24 Sodium 136 (133-145) mmol/L Potassium 4.8 (3.3-5.1) mmol/L Chloride 96 (96-108) mmol/L Carbon Dioxide 19 L (22-30) mmol/L BUN 28 H (8-23) mg/dl Creatinine 1.0 (0.6-1.1) mg/dl Glucose 310 H (70-105) mg/dL Calcium 9.1 (8.6-10.4) mg/dl Total Bilirubin 1.1 H (0.0-1.0) mg/dL AST 25 (0-37) U/l ALT 11 (0-40) U/l Alkaline Phosphatase 98 (39-117) U/L Total Protein 7.1 (5.9-8.4) gm/dL Albumin 3.1 L (3.2-5.2) gm/dL All other labs normal. Assessment and Plan (1) Cholelithiasis and cholecystitis without obstruction Continue on present therapy with plans for reevaluation in the morning Status: Acute (2) SIRS (systemic inflammatory response syndrome) Patient adequately covered at this time we'll reevaluate tomorrow Status: Acute (3) Hyperglycemia due to type 2 diabetes mellitus Status: Acute Qualifiers: Diabetes mellitus intermediate insulin use: with long term care pharmacist use Qualified Code(s): E11.65 - Type 2 diabetes mellitus with hyperglycemia; Z79.4 - snf (current) use of insulin (4) Gastroesophageal reflux Status: Chronic Comment: takes omeprazole for control of this (5) Essential hypertension Status: Chronic
[2018-05-29] MEDS ORDERED: morphine 30 MG TAB.SR.12H PO SCH (21:00)
[2018-05-29] MEDS: HEPARIN 5,000 UNIT/ML VIAL SQ SCH (21:32)
[2018-05-29] MEDS: GABAPENTIN 300 MG CAPSULE PO SCH (22:19)
[2018-05-29] MEDS: DOCUSATE SODIUM 100 MG CAPSULE PO SCH (22:19)
[2018-05-29] MEDS: 0.9 % SODIUM CHLORIDE 10 ML SYRINGE IV SCH (22:21)
[2018-05-29] MEDS: FAMOTIDINE/PF 20 MG/2 ML VIAL IV SCH (22:26)
[2018-05-30] MEDS: PIPERACILLIN SODIUM/TAZOBACTAM 3.375 GM in DEXTROSE 5% IN WATER 50 ML IV SCH ×4 (00:04→17:55)
[2018-05-30] MEDS: 0.9 % SODIUM CHLORIDE 1,000 ML IV SCH (02:15)
[2018-05-30 05:37] LABS: Basophils # (Auto) 0 K/mcL (0.0-0.3); Basophils % (Auto) 0.5 % (0.0-2.0); Eosinophils # (Auto) 0.4 K/mcL (0.0-0.7); Eosinophils % (Auto) 4.7 % (0.0-7.0); Granulocytes % (Auto) 72.8 % (38.0-78.0); Lymphocytes # (Auto) 1.3 K/mcL (1.5-4.8); Lymphocytes % (Auto) 14.1 % (15.5-49.0); Mean Corpuscular HGB Conc 33.2 g/dL (31.0-36.0); Monocytes # (Auto) 0.7 K/mcL (0.1-0.9); Monocytes % (Auto) 7.9 % (1.0-12.0); Platelet Count 297 K/mcL (140-440); RBC 4.19 M/mcL (4.00-5.20); Red Cell Distribution Width 14.2 % (11.5-14.5)
[2018-05-30 06:05] LABS: ALT/SGPT 8 U/l (0-40); Albumin 2.6 gm/dL (3.2-5.2); Albumin/Globulin Ratio 0.8 (1.0-2.3); Alkaline Phosphatase 119 U/L (39-117); Bilirubin,Direct 0.3 mg/dL (0.0-0.3); Blood Urea Nitrogen 16 mg/dl (8-23); Gamma Glutamyl Transpeptidase 36 U/L (5-36); Uric Acid 6.3 mg/dL (2.5-8.0)
[2018-05-30] MEDS ORDERED: traMADol 50 MG TABLET PO PRN ×2 (07:15→09:29)
[2018-05-30] MEDS ORDERED: hydrOXYzine 25 MG TABLET PO PRN ×2 (07:15→09:29)
--- NOTE | 2018-05-30 07:29 | Internal Med Progress Note ---
Medical - PN: Subj Patient information: Note initiated : 05/30/18 at 7:25 am Service Date, if different from initiated Date: [] Patient: Diogo Aly a 73 y/o F admitted on 05/29/18 for weakness, altered mental status. Chief Complaint: [] Interval history: Ms. Aly is a 73 year old F who was brought in for altered mental status. History is difficult to obtain from patient as she is slow to answer and appears confused. Often times repeating herself. There was a report that she was outside all night which I have a hard time believing, the patient could not help me with that history. In asking her what brought her in she started talking about a fall that she had on her buttocks when asked if he was today she said yes. She does complain of fevers and chills and headache denies abdominal pain until I palpate her abdomen. In the ED she was found to have a mild leukocytosis with a elevated lactate up t o 3.8. 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 She also had a CT abdomen pelvis which was concerning for gangrenous gallbladder however patient underwent ultrasound which showed that what appeared to be gas bubble was a stone but there is still was evidence that is concerning for cholecystitis. Thus Dr. Kulkarni was contacted. 05/30 Rotation greatly improved today. Patient says she does not recall the past couple days. Slept well. She states she is always cold but denies any fevers or other complaints Review of Systems: denies headache/fever/nausea/vomiting/chest or abdominal pain/cough/dyspnea/diarrhea. Otherwise see above. - Constitutional Vitals: Vital Signs Temp Pulse Resp BP Pulse Ox 98.9 F 75 15 153/54 100 05/30/18 07:01 05/30/18 07:01 05/30/18 07:01 05/30/18 07:01 05/30/18 07:01 Period Temp Pulse Resp BP Sys/Muonz Pulse Ox Last 24 Hr 97.5 F-99.8 F 67-98 11-23 118-170/41-113 94-100 Intake and Output 01/05/30/18 05/30/18 21:59 05:59 13:59 Intake Total 1100 1050 Output Total 525 410 Balance 575 640 Weight 104.922 kg Intake & Output: Intake & Output 05/29/18 05/30/18 05/30/18 21:59 05:59 13:59 Intake Total 1100 1050 Output Total 525 410 Balance 575 640 Weight 104.922 kg Intake: IV 1100 1050 Sodium Chloride 0.9% 1,000 ml @ 1000 1000 150 mls/hr IV .[id number] [facility] Rx#: [id number] Zosyn 3.375 gm In Dextrose 5% 100 50 in Water 50 ml @ 100 mls/hr IV Q6H [facility] Rx#:[id number] Output: Urine Catheter Amount 525 410 Other: Urine Appearance Clear Clear Uretheral (Angelo) Clear Urine Color Dark Yellow Dark Yellow Uretheral (Angelo) Dark Yellow Exam: General: Awake, but somewhat drowsy, No acute Distress, obese Eyes/N/T: EOMI, Head/Neck: neck supple, CV: RRR, 2/6 SM, Pulm: Clear b/l, no wheezing/rhonchi/rales Abd: soft, +BS x4 Ext: no clubbing/cyanosis, trace b/l LE edema, Neuro: awake, no focal deficits, moves all extremities to command, Skin: warm/dry Medical - PN: Obj Da - Labs CBC & Chem 7: 05/30/18 03:50 05/30/18 03:50 Labs: Abnormal Lab Results 05/30/18 05/30/18 05/29/18 03:50 03:50 11:25 WBC Lymph % (Auto) 14.1 L Lymph # (Auto) 1.3 L Lymphocytes % VBG Lactic Acid Carbon Dioxide Anion Gap BUN Glucose 178 H Calcium 8.2 L Phosphorus 2.4 L Total Bilirubin Alkaline Phosphatase 119 H Total Protein 5.8 L Albumin 2.6 L Globulin Albumin/Globulin Ratio 0.8 L Triglycerides 219 H Urine Protein 30 A Urine Glucose (UA) >=500 A Urine Ketones 20 A Urine Occult Blood 0.2 A Urine Urobilinogen 4.0 A Amorphous Crystals Many A 05/29/18 05/29/18 05/29/18 11:24 11:24 11:24 WBC 13.3 H Lymph % (Auto) Lymph # (Auto) Lymphocytes % 12 L VBG Lactic Acid 3.8 H Carbon Dioxide 19 L Anion Gap 21.0 H BUN 28 H Glucose 310 H Calcium Phosphorus Total Bilirubin 1.1 H Alkaline Phosphatase Total Protein Albumin 3.1 L Globulin 4.0 H Albumin/Globulin Ratio 0.8 L Triglycerides Urine Protein Urine Glucose (UA) Urine Ketones Urine Occult Blood Urine Urobilinogen Amorphous Crystals Meds: Medications Acetaminophen (Tylenol) 650 mg PO Q4-6HP PRN PRN Reason: PAIN/FEVER > 101 Albuterol/Ipratropium (Duoneb) 3 ml NEB Q4HRT PRN PRN Reason: Bronchospasm Bisacodyl (Dulcolax) 10 mg GA Q2-3DAYS PRN PRN Reason: Constipation Dextrose (Dextrose 50%) 0 ml IV UD PRN PRN Reason: Hypoglycemia Diagnostic Test (Pha) (Accu-Chek) 1 each FS [facility] Last Admin: 05/29/18 21:32 Dose: 1 each Documented by: Docusate Sodium (Colace) 100 mg PO BID [facility] Last Admin: 05/29/18 22:19 Dose: Not Given Documented by: Famotidine (Pepcid) 20 mg IV Q12 [facility] Last Admin: 05/29/18 22:26 Dose: 20 mg Documented by: Gabapentin (Neurontin) 300 mg PO BID [facility] Last Admin: 05/29/18 22:19 Dose: Not Given Documented by: Glucose (Insta-Glucose) 15 gm PO PRN PRN PRN Reason: Hypoglycemia Heparin Sodium (Porcine) (Heparin) 5,000 unit SQ Q12 [facility] Last Admin: 05/29/18 21:32 Dose: 5,000 unit Documented by: Hydroxyzine HCl (Atarax) 25 mg PO QIDP PRN PRN Reason: Anxiety Piperacillin Sod/Tazobactam (Sod 3.375 gm/ Dextrose) 50 mls @ 100 mls/hr IV Q6H [facility] Last Infusion: 05/30/18 00:34 Dose: Infused Documented by: Insulin Human Lispro (Humalog) 0 unit SQ [facility]; Protocol Last Admin: 05/29/18 21:35 Dose: 4 unit Documented by: Losartan Potassium (Cozaar) 100 mg PO DAILY [facility] Morphine Sulfate (Ms Contin) 30 mg PO TID [facility] Last Admin: 05/29/18 22:19 Dose: Not Given Documented by: Ondansetron HCl (Zofran) 4 mg IV Q4-6HP PRN PRN Reason: Nausea And Vomiting Oxycodone/Acetaminophen (Percocet 10-325mg) 1 tab PO Q6HP PRN PRN Reason: Pain Promethazine HCl (Phenergan) 12.5 mg IV Q4-6HP PRN PRN Reason: Nausea And Vomiting Senna (Senokot) 1 tab PO HSP PRN PRN Reason: Constipation Sodium Chloride (Saline Flush) 10 ml IV Q8 [facility] Last Admin: 05/29/18 22:21 Dose: Not Given Documented by: Tramadol HCl (Ultram) 50 mg PO Q4HP PRN PRN Reason: Pain Medical - PN: A/P - Time Spent With Patient Total time spent is greater than 50% in coordination of care (as documented) at patient's floor/unit and/or counseling patient: - Narrative A/P Narrative: A: *Acute Cholecystitis with cholelithiasis: *Severe Sepsis: lacatic acidosis/leukocytosis resolved. PCT trending down *AMS: 2/2 above *Diabetes w/neuropathy: *Asthma: *Obesity: *HTN: home med losartan 100 *GERD: *Depression/Anxiety/Fibromyalgia: *Sacral decubitus: Follows with wound care *chronic pain: P: -Zosyn, -IVF's finish -Surgery following -Wound care, -SSI -cont home ARB, prn IV -pt/ot -ppx: heparin/pepcid full code Medical - PN: Qual - VTE Deep Vein Thrombosis/Pulmonary Embolism Present on Admission: No
[2018-05-30] MEDS: 0.9 % SODIUM CHLORIDE 10 ML SYRINGE IV SCH ×3 (07:45→23:01)
[2018-05-30] MEDS: INSULIN LISPRO 1 UNIT/0.01 ML UNIT SQ SCH ×4 (08:19→21:59)
[2018-05-30] MEDS ORDERED: morphine 30 MG TAB.SR.12H PO SCH (09:00)
[2018-05-30] MEDS ORDERED: LOSARTAN 50 MG TABLET PO SCH (09:00)
[2018-05-30] MEDS ORDERED: hydrALAZINE 20 MG/ML VIAL IV PRN ×2 (09:06→09:29)
[2018-05-30] MEDS: FAMOTIDINE/PF 20 MG/2 ML VIAL IV SCH ×2 (09:26→21:58)
[2018-05-30] MEDS: HEPARIN 5,000 UNIT/ML VIAL SQ SCH ×2 (09:26→21:59)
[2018-05-30] MEDS: GABAPENTIN 300 MG CAPSULE PO SCH ×2 (09:27→22:02)
[2018-05-30] MEDS: DOCUSATE SODIUM 100 MG CAPSULE PO SCH ×2 (09:27→22:02)
[2018-05-30] MEDS ORDERED: DEXTROSE 50% 50 ML VIAL IV PRN (09:29)
[2018-05-30] MEDS ORDERED: DEXTROSE 31 GM ORAL.SUSP PO PRN (09:29)
[2018-05-30] MEDS ORDERED: BISACODYL 10 MG SUPP.RECT PR PRN (09:29)
[2018-05-30] MEDS ORDERED: IPRATROPIUM/ALBUTEROL 3 ML AMPUL.NEB NEB PRN (09:29)
[2018-05-30] MEDS ORDERED: oxyCODONE/APAP 10/325MG TABLET PO PRN (09:29)
[2018-05-30] MEDS ORDERED: PROMETHAZINE 25 MG/ML VIAL IV PRN (09:29)
[2018-05-30] MEDS ORDERED: ACETAMINOPHEN 325 MG TABLET PO PRN (09:29)
[2018-05-30] MEDS ORDERED: ONDANSETRON 4 MG/2 ML VIAL IV PRN (09:29)
--- NOTE | 2018-05-30 17:27 | General Surgery Progress Note ---
Subjective Patient reports: feels better, pain is less, tolerating a regular diet, nausea Narrative: Note initiated : 05/30/18 at 5:26 pm Service Date, if different from initiated Date: [] Patient: Diogo Aly 73 y/o F admitted on 05/29/18 for weakness, altered mental status. Chief Complaint: [patient states that she feels much better. She is much more alert and aware. She is oriented to person place and time. She does not have any recollection since last evening. The last recollection that she has is complaint of upper abdominal discomfort and nausea. She did not have any vomiting that she can remember. She does not remember my evaluation with her last evening.white blood count is decreased to 9.4. chemical panel is unremarkable with normal LFTs] Objective Temp Pulse Resp BP Pulse Ox 97.6 F 80 16 149/65 100 05/30/18 16:00 05/30/18 11:57 05/30/18 16:00 05/30/18 16:00 05/30/18 16:00 - Additional Data Intake & Output - Last 24 hours: Intake & Output 05/28/18 05/29/18 05/30/18 05/31/18 05:59 05:59 05:59 05:59 Intake Total 3150 1770 Output Total 935 780 Balance 2215 990 Weight 231 lb 5 oz - General physical appearance well developed, well nourished, no distress - Eyes PERRL, normal ocular movement - ENT normal pinna, normal nares, normal mucosa, no hearing loss, no congestion - Neck no masses, no bruits, trachea midline, no lymphadenopathy, no venous distension - Respiratory normal expansion, normal respiratory effort, clear to auscultation - Cardiovascular Cardiovascular exam: Present: normal rate and rhythm, RRR, +S1, +S2, systolic murmur. Absent: JVD, tachycardia - Abdomen tender (tender epigastrium and right upper quadrant with guarding), bowel sounds (present), surgical scars (none), masses (none) - Integumentary no rash, no growths, no abnormal pigmentation - Neurologic normal coordination, normal sensation - Musculoskeletal other ( gait and posture not tested) - Psychiatric oriented to time, oriented to person, oriented to place, speech is normal, jose ry intact - Labs 05/30/18 03:50 05/30/18 03:50 Diabetes panel 05/30/18 Range/Units 03:50 Sodium 139 (133-145) mmol/L Potassium 3.7 (3.3-5.1) mmol/L Chloride 105 (96-108) mmol/L Carbon Dioxide 23 (22-30) mmol/L BUN 16 (8-23) mg/dl Creatinine 0.7 (0.6-1.1) mg/dl Glucose 178 H (70-105) mg/dL Calcium 8.2 L (8.6-10.4) mg/dl AST 14 (0-37) U/l ALT 8 (0-40) U/l Alkaline Phosphatase 119 H (39-117) U/L Total Protein 5.8 L (5.9-8.4) gm/dL Albumin 2.6 L (3.2-5.2) gm/dL Triglycerides 219 H (<150) mg/dl Calcium panel 05/30/18 Range/Units 03:50 Calcium 8.2 L (8.6-10.4) mg/dl Phosphorus 2.4 L (2.7-4.5) mg/dL Albumin 2.6 L (3.2-5.2) gm/dL Pituitary panel 05/30/18 Range/Units 03:50 Sodium 139 (133-145) mmol/L Potassium 3.7 (3.3-5.1) mmol/L Chloride 105 (96-108) mmol/L Carbon Dioxide 23 (22-30) mmol/L BUN 16 (8-23) mg/dl Creatinine 0.7 (0.6-1.1) mg/dl Glucose 178 H (70-105) mg/dL Calcium 8.2 L (8.6-10.4) mg/dl Adrenal panel 05/30/18 Range/Units 03:50 Sodium 139 (133-145) mmol/L Potassium 3.7 (3.3-5.1) mmol/L Chloride 105 (96-108) mmol/L Carbon Dioxide 23 (22-30) mmol/L BUN 16 (8-23) mg/dl Creatinine 0.7 (0.6-1.1) mg/dl Glucose 178 H (70-105) mg/dL Calcium 8.2 L (8.6-10.4) mg/dl Total Bilirubin 0.8 (0.0-1.0) mg/dL AST 14 (0-37) U/l ALT 8 (0-40) U/l Alkaline Phosphatase 119 H (39-117) U/L Total Protein 5.8 L (5.9-8.4) gm/dL Albumin 2.6 L (3.2-5.2) gm/dL Assessment and Plan (1) Cholelithiasis and cholecystitis without obstruction Status: Acute Assessment and plan: Patient is clinically improved Patient counseled for laparoscopic cholecystectomy to be done tomorrow Current Visit: Yes (2) SIRS (systemic inflammatory response syndrome) Status: Acute Assessment and plan: Clinically improved with normalization of lactic acid level Current Visit: Yes (3) Hyperglycemia due to type 2 diabetes mellitus Status: Acute Assessment and plan: hyperglycemia is better controlled Current Visit: Yes (4) Gastroesophageal reflux Problem details: takes omeprazole for control of this Status: Chronic Current Visit: No (5) Essential hypertension Status: Chronic Current Visit: No - Time Spent With Patient Total time spent is greater than 50% in coordination of care (as documented) at patient's floor/unit and/or counseling patient:
[2018-05-30] MEDS ORDERED: SENNOSIDES 1 TABLET PO PRN (21:00)
[2018-05-30] MEDS: morphine 30 MG TAB.SR.12H PO SCH (22:01)
[2018-05-31] MEDS: PIPERACILLIN SODIUM/TAZOBACTAM 3.375 GM in DEXTROSE 5% IN WATER 50 ML IV SCH ×4 (05:28→17:47)
[2018-05-31] MEDS: 0.9 % SODIUM CHLORIDE 10 ML SYRINGE IV SCH ×3 (05:29→22:20)
[2018-05-31 06:02] LABS: Basophils # (Auto) 0 K/mcL (0.0-0.3); Basophils % (Auto) 0.5 % (0.0-2.0); Eosinophils # (Auto) 0.6 K/mcL (0.0-0.7); Granulocytes % (Auto) 53.1 % (38.0-78.0); Lymphocytes # (Auto) 2.3 K/mcL (1.5-4.8); Lymphocytes % (Auto) 26.4 % (15.5-49.0); Mean Cell Volume 86.7 fL (80.0-100.0); Mean Corpuscular HGB Conc 33.6 g/dL (31.0-36.0); Monocytes # (Auto) 1.1 K/mcL (0.1-0.9); Platelet Count 261 K/mcL (140-440); RBC 4.06 M/mcL (4.00-5.20); Red Cell Distribution Width 14.1 % (11.5-14.5)
[2018-05-31 06:31] LABS: ALT/SGPT 8 U/l (0-40); Albumin 2.4 gm/dL (3.2-5.2); Albumin/Globulin Ratio 0.7 (1.0-2.3); Alkaline Phosphatase 73 U/L (39-117); Bilirubin,Direct < 0.2 mg/dL (0.0-0.3); Blood Urea Nitrogen 12 mg/dl (8-23); Gamma Glutamyl Transpeptidase 36 U/L (5-36); Uric Acid 4.5 mg/dL (2.5-8.0)
[2018-05-31] MEDS ORDERED: LOSARTAN 50 MG TABLET PO SCH (09:00)
[2018-05-31] MEDS: morphine 30 MG TAB.SR.12H PO SCH ×2 (10:31→21:28)
[2018-05-31] MEDS: INSULIN LISPRO 1 UNIT/0.01 ML UNIT SQ SCH ×4 (10:36→22:09)
[2018-05-31] MEDS: FAMOTIDINE/PF 20 MG/2 ML VIAL IV SCH ×2 (10:37→21:28)
[2018-05-31] MEDS: DOCUSATE SODIUM 100 MG CAPSULE PO SCH ×2 (11:04→21:27)
[2018-05-31] MEDS: HEPARIN 5,000 UNIT/ML VIAL SQ SCH (11:05)
[2018-05-31] MEDS: GABAPENTIN 300 MG CAPSULE PO SCH ×2 (11:11→21:27)
--- NOTE | 2018-05-31 11:37 | Internal Med Progress Note ---
Medical - PN: Subj Patient information: Note initiated : 05/31/18 at 11:35 am Service Date, if different from initiated Date: [] Patient: Diogo Aly a 73 y/o F admitted on 05/29/18 for weakness, altered mental status. Chief Complaint: [] Interval history: Ms. Aly is a 73 year old F who was brought in for altered mental status. History is difficult to obtain from patient as she is slow to answer and appears confused. Often times repeating herself. There was a report that she was outside all night which I have a hard time believing, the patient could not help me with that history. In asking her what brought her in she started talking about a fall that she had on her buttocks when asked if he was today she said yes. She does complain of fevers and chills and headache denies abdominal pain until I palpate her abdomen. In the ED she was found to have a mild leukocytosis with a elevated lactate up to 3.8. 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 She also had a CT abdomen pelvis which was concerning for gangrenous gallbladder however patient underwent ultrasound which showed that what appeared to be gas bubble was a stone but there is still was evidence that is concerning for cholecystitis. Thus Dr. Kulkarni was contacted. 05/30 Rotation greatly improved today. Patient says she does not recall the past couple days. Slept well. She states she is always cold but denies any fevers or other complaints 05/31-patient due for laparoscopic cholecystectomy at 1 PM today. No overnight events. Currently n.p.o. White count stable. Hemodynamic stable. Antihypertensives held this morning prior to surgery. Will review postoperatively. Postoperative care as per surgery - Constitutional Vitals: Vital Signs Temp Pulse Resp BP Pulse Ox 97.6 F 63 18 144/58 97 05/31/18 11:10 05/31/18 11:10 05/31/18 11:10 05/31/18 11:10 05/31/18 11:10 Period Temp Pulse Resp BP Sys/Munoz Pulse Ox Last 24 Hr 96.8 F-99.1 F 61-80 16-18 126-162/58-72 96-100 Intake and Output 05/30/18 05/31/18 05/31/18 21:59 05:59 13:59 Intake Total 50 340 50 Output Total 200 1025 Balance -150 -685 50 Weight 240 lb 8 oz Intake & Output: Intake & Output 05/30/18 05/31/18 05/31/18 21:59 05:59 13:59 Intake Total 50 340 50 Output Total 200 1025 Balance -150 -685 50 Weight 240 lb 8 oz Intake: IV 50 100 50 Zosyn 3.375 gm In Dextrose 5% 50 100 50 in Water 50 ml @ 100 mls/hr IV Q6H KALLIE Rx#:[id number] Oral 240 Output: Urine Catheter Amount 200 1025 Other: Meal Lunch Percent of Meal Consumed 75% Feeding Ability Assist with Tray Set Up Urine Appearance Clear Uretheral (Angelo) Clear Urine Color Bright Yellow Straw Uretheral (Angelo) Bright Yellow Urine Odor Strong Normal General appearance: no acute distress Exam: Alert oriented No labored breathing Nondistended abdomen No anxiety Medical - PN: Obj Da - Labs CBC & Chem 7: 05/31/18 04:44 05/31/18 04:44 Labs: Abnormal Lab Results 05/31/18 05/31/18 05/30/18 04:44 04:44 03:50 WBC Hgb 11.8 L Hct 35.2 L Lymph % (Auto) [place] % (Auto) 13.0 H Lymph # (Auto) [place] # (Auto) 1.1 H Lymphocytes % VBG Lactic Acid Carbon Dioxide 20 L Anion Gap BUN Glucose 151 H 178 H Calcium 8.1 L 8.2 L Phosphorus 2.6 L 2.4 L Total Bilirubin Alkaline Phosphatase 119 H Total Protein 5.7 L 5.8 L Albumin 2.4 L 2.6 L Globulin Albumin/Globulin Ratio 0.7 L 0.8 L Triglycerides 269 H 219 H Urine Protein Urine Glucose (UA) Urine Ketones Urine Occult Blood Urine Urobilinogen Amorphous Crystals 05/30/18 05/29/18 05/29/18 03:50 11:25 11:24 WBC Hgb Hct Lymph % (Auto) 14.1 L [place] % (Auto) Lymph # (Auto) 1.3 L [place] # (Auto) Lymphocytes % VBG Lactic Acid 3.8 H Carbon Dioxide Anion Gap BUN Glucose Calcium Phosphorus Total Bilirubin Alkaline Phosphatase Total Protein Albumin Globulin Albumin/Globulin Ratio Triglycerides Urine Protein 30 A Urine Glucose (UA) >=500 A Urine Ketones 20 A Urine Occult Blood 0.2 A Urine Urobilinogen 4.0 A Amorphous Crystals Many A 05/29/18 05/29/18 11:24 11:24 WBC 13.3 H Hgb Hct Lymph % (Auto) [place] % (Auto) Lymph # (Auto) [place] # (Auto) Lymphocytes % 12 L VBG Lactic Acid Carbon Dioxide 19 L Anion Gap 21.0 H BUN 28 H Glucose 310 H Calcium Phosphorus Total Bilirubin 1.1 H Alkaline Phosphatase Total Protein Albumin 3.1 L Globulin 4.0 H Albumin/Globulin Ratio 0.8 L Triglycerides Urine Protein Urine Glucose (UA) Urine Ketones Urine Occult Blood Urine Urobilinogen Amorphous Crystals Meds: Medications Acetaminophen (Tylenol) 650 mg PO Q4-6HP PRN PRN Reason: PAIN/FEVER > 101 Albuterol/Ipratropium (Duoneb) 3 ml NEB Q4HRT PRN PRN Reason: Bronchospasm Bisacodyl (Dulcolax) 10 mg ID Q2-3DAYS PRN PRN Reason: Constipation Dextrose (Dextrose 50%) 0 ml IV UD PRN PRN Reason: Hypoglycemia Diagnostic Test (Pha) (Accu-Chek) 1 each FS ACHS [facility] Last Admin: 05/31/18 10:35 Dose: 1 each Documented by: Docusate Sodium (Colace) 100 mg PO BID [facility] Last Admin: 05/31/18 11:04 Dose: Not Given Documented by: Famotidine (Pepcid) 20 mg IV Q12 [facility] Last Admin: 05/31/18 10:37 Dose: 20 mg Documented by: Gabapentin (Neurontin) 300 mg PO BID [facility] Last Admin: 05/31/18 11:11 Dose: Not Given Documented by: Glucose (Insta-Glucose) 15 gm PO PRN PRN PRN Reason: Hypoglycemia Heparin Sodium (Porcine) (Heparin) 5,000 unit SQ Q12 [facility] Last Admin: 05/31/18 11:05 Dose: Not Given Documented by: Hydralazine HCl (Apresoline) 0 mg IV Q2HP PRN PRN Reason: Hypertension Hydroxyzine HCl (Atarax) 25 mg PO QIDP PRN PRN Reason: Anxiety Piperacillin Sod/Tazobactam (Sod 3.375 gm/ Dextrose) 50 mls @ 100 mls/hr IV Q6H [facility] Last Infusion: 05/31/18 10:53 Dose: Infused Documented by: Insulin Human Lispro (Humalog) 0 unit SQ ACHS [facility]; Protocol Last Admin: 05/31/18 10:36 Dose: Not Given Documented by: Losartan Potassium (Cozaar) 100 mg PO DAILY [facility] Last Admin: 05/31/18 11:11 Dose: Not Given Documented by: Morphine Sulfate (Ms Contin) 30 mg PO BID [facility] Last Admin: 05/31/18 10:31 Dose: 30 mg Documented by: Ondansetron HCl (Zofran) 4 mg IV Q4-6HP PRN PRN Reason: Nausea And Vomiting Oxycodone/Acetaminophen (Percocet 10-325mg) 1 tab PO Q6HP PRN PRN Reason: Pain Level 3-6 Last Admin: 05/31/18 02:10 Dose: 1 tab Documented by: Promethazine HCl (Phenergan) 12.5 mg IV Q4-6HP PRN PRN Reason: Nausea And Vomiting Senna (Senokot) 1 tab PO HSP PRN PRN Reason: Constipation Sodium Chloride (Saline Flush) 10 ml IV Q8 [facility] Last Admin: 05/31/18 05:29 Dose: 10 ml Documented by: Tramadol HCl (Ultram) 50 mg PO Q4HP PRN PRN Reason: Pain Level 1-3 Last Admin: 05/30/18 12:58 Dose: 50 mg Documented by: Medical - PN: A/P - Time Spent With Patient Total time spent is greater than 50% in coordination of care (as documented) at patient's floor/unit and/or counseling patient: 25 - 35 minutes (1) Cholecystitis Status: Acute Assessment and plan: * Acute cholecystitis with cholelithiasis-will undergo laparoscopic cholecystectomy by surgery * Severe sepsis-normalization of leukocytosis/lactic acidosis. Continue IV Zosyn * AMS resolved * Diabetes --hold glipizide and will suggest prandial insulin postoperatively back in oral diet * History of asthma * History of hypertension-continue losartan postoperatively * Neuropathy on gabapentin * History of GERD-continue PPI * Depression anxiety/fibromyalgia * Sacral decubitus-follows with wound care * History of chronic pain-on naproxen/morphine/methocarbamol * Full code * Heparin subcu Plan * Review postop * Start sliding scale insulin * Pre-existing medical condition management as above * Postoperative management per surgery Current Visit: Yes Medical - PN: Qual - VTE Deep Vein Thrombosis/Pulmonary Embolism Present on Admission: No
[2018-05-31] MEDS ORDERED: LIDOCAINE HCL/PF 100 MG/5 ML SYRINGE IV ONE (13:05)
[2018-05-31] MEDS ORDERED: DEXAMETHASONE 10 MG/ML VIAL IV ONE (13:05)
[2018-05-31] MEDS ORDERED: ONDANSETRON 4 MG/2 ML VIAL IV ONE (13:05)
[2018-05-31] MEDS ORDERED: NEOSTIGMINE 1 MG/ML VIAL IV ONE (13:05)
[2018-05-31] MEDS ORDERED: ROCURONIUM 10 MG/ML ML IV ONE (13:05)
[2018-05-31] MEDS ORDERED: PROPOFOL 200 MG/20 ML VIAL IV ONE (13:05)
[2018-05-31] MEDS ORDERED: fentaNYL 250 MCG/5 ML VIAL IV ONE (13:05)
[2018-05-31] MEDS ORDERED: GLYCOPYRROLATE 0.2 MG/ML VIAL IV ONE (13:05)
[2018-05-31] MEDS ORDERED: SUCCINYLCHOLINE 20 MG/ML ML IV ONE (13:05)
[2018-05-31] MEDS ORDERED: MIDAZOLAM 5 MG/5 ML VIAL IV ONE (13:05)
[2018-05-31] MEDS ORDERED: hydrALAZINE 20 MG/ML VIAL IV ONE (13:05)
[2018-05-31] MEDS ORDERED: fentaNYL 100 MCG/2 ML VIAL IV PRN (14:45)
[2018-05-31] MEDS ORDERED: ONDANSETRON 4 MG/2 ML VIAL IV PRN (14:45)
[2018-05-31] MEDS ORDERED: NALOXONE HCL 0.4 MG/ML VIAL IV PRN (14:45)
[2018-05-31] MEDS ORDERED: ACETAMINOPHEN 1,000 MG/100 ML BOTTLE IV ONE (14:45)
[2018-05-31] MEDS ORDERED: PROMETHAZINE 25 MG/ML VIAL IV PRN ×2 (14:45→16:37)
[2018-05-31] MEDS ORDERED: FLUMAZENIL 0.1 MG/ML ML IV PRN (14:45)
[2018-05-31] MEDS ORDERED: METOPROLOL TARTRATE 5 MG/5 ML VIAL IV PRN (14:45)
[2018-05-31] MEDS ORDERED: IPRATROPIUM/ALBUTEROL 3 ML AMPUL.NEB NEB PRN ×2 (14:45→16:37)
[2018-05-31] MEDS ORDERED: MEPERIDINE 25 MG/ML SYRINGE IV PRN (14:45)
[2018-05-31] MEDS ORDERED: ePHEDrine 50 MG/ML AMPUL IV PRN (14:45)
[2018-05-31] MEDS ORDERED: METHOCARBAMOL 1,000 MG/10 ML VIAL IV PRN (14:45)
[2018-05-31] MEDS ORDERED: ATROPINE SULFATE 0.4 MG/ML VIAL IV PRN (14:45)
[2018-05-31] MEDS ORDERED: HYDROmorphone 2 MG/ML VIAL IV PRN (14:45)
--- NOTE | 2018-05-31 15:27 | Brief Operative Note ---
Date of procedure: 05/31/18 Pre-op diagnosis: acute cholecystitis Post-op diagnosis: other (cholecystitis) Procedure: laparoscopy with open cholecystectomy Grafts/Implants: No (JPX1) Anesthesia: GETA Findings: SEVERE INFLAMMATION WITH LARGE STONE OBSTRUCTING GALLBLADDER WITH ABSCESS Complications: none Surgeon: Nicki Kulkarni Estimated blood loss (cc): 25 Specimens Removed/Pathology: other (GALLBLADDER) Condition: stable Disposition: PACU
[2018-05-31] MEDS ORDERED: hydrALAZINE 20 MG/ML VIAL IV PRN (16:37)
[2018-05-31] MEDS ORDERED: BISACODYL 10 MG SUPP.RECT PR PRN (16:37)
[2018-05-31] MEDS ORDERED: DEXTROSE 50% 50 ML VIAL IV PRN (16:37)
[2018-05-31] MEDS ORDERED: ACETAMINOPHEN 325 MG TABLET PO PRN (16:37)
[2018-05-31] MEDS ORDERED: SENNOSIDES 1 TABLET PO PRN (16:37)
[2018-05-31] MEDS ORDERED: DEXTROSE 31 GM ORAL.SUSP PO PRN (16:37)
[2018-05-31] MEDS: oxyCODONE/APAP 10/325MG TABLET PO PRN (22:47)
[2018-06-01] MEDS: PIPERACILLIN SODIUM/TAZOBACTAM 3.375 GM in DEXTROSE 5% IN WATER 50 ML IV SCH ×5 (00:45→23:18)
[2018-06-01] MEDS: oxyCODONE/APAP 10/325MG TABLET PO PRN ×3 (05:09→18:14)
[2018-06-01] MEDS: INSULIN LISPRO 1 UNIT/0.01 ML UNIT SQ SCH ×4 (07:33→21:02)
[2018-06-01] MEDS: FAMOTIDINE/PF 20 MG/2 ML VIAL IV SCH ×2 (09:10→21:01)
[2018-06-01] MEDS: GABAPENTIN 300 MG CAPSULE PO SCH ×2 (09:11→21:01)
[2018-06-01] MEDS: traMADol 50 MG TABLET PO PRN ×2 (09:11→23:19)
[2018-06-01] MEDS: LOSARTAN 50 MG TABLET PO SCH (09:11)
[2018-06-01] MEDS: DOCUSATE SODIUM 100 MG CAPSULE PO SCH ×2 (09:11→21:01)
[2018-06-01] MEDS: morphine 30 MG TAB.SR.12H PO SCH ×2 (09:12→21:01)
[2018-06-01] MEDS: ONDANSETRON 4 MG/2 ML VIAL IV PRN (09:15)
--- NOTE | 2018-06-01 13:38 | General Surgery Progress Note ---
Subjective Patient reports: feels better, pain is less, tolerating a regular diet, flatus, afebrile Narrative: Note initiated : 06/01/18 at 1:38 pm Service Date, if different from initiated Date: [] Patient: Diogo Aly 73 y/o F admitted on 05/29/18 for weakness, altered mental status. Chief Complaint: [patient feels much better. She is having a moderate amount of incisional pain. She denies nausea and requests that she get a regular diet. NIKKI drain has moderate amount of bile leakage which is not unanticipated. Discussed with patient the need for retirement for rehabilitation at least 2 weeks.] Objective Temp Pulse Resp BP Pulse Ox 98.6 F 82 18 142/68 94 06/01/18 11:25 06/01/18 11:25 06/01/18 11:25 06/01/18 11:25 06/01/18 11:25 - Additional Data Intake & Output - Last 24 hours: Intake & Output 05/30/18 05/31/18 06/01/18 06/02/18 05:59 05:59 05:59 05:59 Intake Total 3150 2160 2160 50 Output Total 935 1805 1278 Balance 2215 355 882 50 Weight 231 lb 5 oz 240 lb 8 oz 241 lb 8 oz - General physical appearance well developed, well nourished, moderate distress, moderate pain, chronically ill, obese - Eyes PERRL, normal ocular movement - ENT normal pinna, normal nares, normal mucosa, no hearing loss, no congestion - Neck no masses, no bruits, trachea midline, no lymphadenopathy, no venous distension - Respiratory normal expansion, normal respiratory effort, clear to auscultation - Cardiovascular Cardiovascular exam: Present: normal rate and rhythm, RRR, +S1, +S2. Absent: JVD, tachycardia - Abdomen soft, tender (moderately severe tenderness incision right subcostal area; NIKKI drain with bile noted) - Integumentary no rash, no growths, no abnormal pigmentation - Neurologic normal coordination, normal sensation - Musculoskeletal normal gait, normal posture - Psychiatric oriented to time, oriented to person, oriented to place, speech is normal, memory intact - Labs 05/31/18 04:44 05/31/18 04:44 Assessment and Plan (1) Cholelithiasis and cholecystitis without obstruction Status: Acute Assessment and plan: Patient is clinically improved She feels better except for incisional pain; she was much more alert Advance to regular diet Current Visit: Yes (2) SIRS (systemic inflammatory response syndrome) Status: Resolved Assessment and plan: Clinically improved with normalization of lactic acid level Current Visit: Yes (3) Hyperglycemia due to type 2 diabetes mellitus Status: Chronic Assessment and plan: hyperglycemia is better controlled Current Visit: Yes (4) Gastroesophageal reflux Problem details: takes omeprazole for control of this Status: Chronic Curr ent Visit: No (5) Essential hypertension Status: Chronic Current Visit: No - Time Spent With Patient Total time spent is greater than 50% in coordination of care (as documented) at patient's floor/unit and/or counseling patient:
[2018-06-01 14:03] LABS: Basophils # (Auto) 0 K/mcL (0.0-0.3); Basophils % (Auto) 0.1 % (0.0-2.0); Eosinophils # (Auto) 0 K/mcL (0.0-0.7); Eosinophils % (Auto) 0 % (0.0-7.0); Granulocytes % (Auto) 83.5 % (38.0-78.0); Lymphocytes # (Auto) 1.6 K/mcL (1.5-4.8); Lymphocytes % (Auto) 9.5 % (15.5-49.0); Mean Cell Volume 87.3 fL (80.0-100.0); Mean Corpuscular HGB Conc 33.4 g/dL (31.0-36.0); Monocytes # (Auto) 1.1 K/mcL (0.1-0.9); Monocytes % (Auto) 6.9 % (1.0-12.0); Platelet Count 306 K/mcL (140-440); Red Cell Distribution Width 14.2 % (11.5-14.5)
--- NOTE | 2018-06-01 15:53 | General Surgery Consult Note ---
History of Present Illness Patient information: Note initiated : 06/01/18 at 3:49 pm Service Date, if different from initiated Date: [] Patient: Diogo Aly 73 y/o F admitted on 05/29/18 for weakness, altered mental status. Chief Complaint: [] Consult date: 06/01/18 Requesting physician: Ryder Hannah (Wound Care Consult) History of present illness: I know this patient from previous encounter at the wound care clinic. She is currently in room 114 at rest at [facility], recovering after undergoing laparoscopic cholecystectomy with NIKKI drain placement. She presented to the hospital with acute cholecystitis, SIRS and the uncontrolled diabetes. This was managed appropriately followed by cholecystectomy. Patient is recovering well from surgery. Patient is morbidly obese and has had fungus dermatitis under the panniculus skin folds and pressure ulcers over sacrum and both buttocks trochanteric areas. I saw this patient along with Alejandra wound care nurse and examined her wounds. Medications and Allergies Home Medications Medication Instructions Recorded Confirmed Type gabapentin 300 mg capsule 900 mg PO BID cap 03/01/15 05/29/18 History glipizide ER 5 mg tablet, extended 10 mg PO QDAY 03/01/15 05/29/18 History release 24 hr losartan 100 mg tablet 100 mg PO QDAY 03/01/15 05/29/18 History metformin 1,000 mg tablet 1,000 mg PO BID 03/01/15 05/29/18 History morphine ER 30 mg tablet,extended 30 mg PO TID tab 03/01/15 05/29/18 History release naproxen 500 mg tablet 500 mg PO ONCE PRN tab 03/01/15 05/29/18 History omeprazole 20 mg tablet,delayed 20 mg PO QDAY 03/01/15 05/29/18 History release tramadol 50 mg tablet 50 mg PO Q4H PRN 03/01/15 05/29/18 History Estradiol [Estrace] 2 mg PO QDAY 03/18/15 05/29/18 History oxycodone-acetaminophen 10 mg-325 1 tab PO Q6HP PRN 07/05/15 05/29/18 History mg tablet methocarbamol 750 mg tablet 750 mg PO HSP PRN tab 10/14/15 05/29/18 History hydrOXYzine [Atarax] 25 mg PO QID PRN 05/29/18 05/29/18 History Allergies Allergy/AdvReac Type Severity Reaction Status Date / Time vancomycin Allergy Severe Swelling Verified 04/23/18 09:30 of Lip/Tongue/Throat diphenhydramine Allergy Unknown Unknown Verified 04/22/18 22:23 [From Benadryl] sulfasalazine [Sulfasalazine] Allergy Unknown Unknown Verified 04/22/18 22:23 aspirin [From Percodan] AdvReac Mild Itching Verified 05/30/18 07:00 diazepam [From Valium] AdvReac Mild Itching Verified 05/30/18 07:00 hydrocodone AdvReac Mild Itching Verified 04/24/18 09:53 oxycodone [From Percodan] AdvReac Mild Itching Verified 05/30/18 07:00 Exam Temp Pulse Resp BP Pulse Ox 98.6 F 82 18 142/68 94 06/01/18 11:25 06/01/18 11:25 06/01/18 11:25 06/01/18 11:25 06/01/18 11:25 - General physical appearance well developed, no distress, obese - Eyes PERRL, normal ocular movement - ENT normal pinna, normal nares, normal mucosa, no congestion - Head Head exam IM: Present: atraumatic, normal inspection, normocephalic - Neck no masses, no bruits, trachea midline, no venous distension - Cardiovascular Cardiovascular exam IM: Present: normal rate and rhythm - Respiratory normal respiratory effort absent breath sounds: bilateral (diminished breath sounds at bases) - Abdomen Abdomen: Present: guarding (Post surgical guarding right upper quadrant. Otherwise soft abdomen with intact bowel sounds.) - Integumentary Present: other (grade 1 pressure also sacral area and grade 1-2 pressure ulcer right buttock posterior lateral aspect) Results - Labs 06/01/18 12:39 05/31/18 04:44 Abnormal lab results 06/01/18 Range/Units 12:39 WBC 16.3 H (4.5-11.0) K/mcL Hgb 11.9 L (12.0-15.0) g/dL Hct 35.8 L (36.0-48.0) % Gran % 83.5 H (38.0-78.0) % Lymph % (Auto) 9.5 L (15.5-49.0) % Gran # 13.6 H (1.8-8.0) K/mcL [place] # (Auto) 1.1 H (0.1-0.9) K/mcL All other labs normal. 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
--- NOTE | 2018-06-01 15:55 | Internal Med Progress Note ---
Medical - PN: Subj Patient information: Note initiated : 06/01/18 at 3:53 pm Service Date, if different from initiated Date: [] Patient: Diogo Aly a 73 y/o F admitted on 05/29/18 for weakness, altered mental status. Chief Complaint: [] Interval history: Ms. Aly is a 73 year old F who was brought in for altered mental status. History is difficult to obtain from patient as she is slow to answer and appears confused. Often times repeating herself. There was a report that she was outside all night which I have a hard time believing, the patient could not help me with that history. In asking her what brought her in she started talking about a fall that she had on her buttocks when asked if he was today she said yes. She does complain of fevers and chills and headache denies abdominal pain until I palpate her abdomen. In the ED she was found to have a mild leukocytosis with a elevated lactate up t o 3.8. 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 She also had a CT abdomen pelvis which was concerning for gangrenous gallbladder however patient underwent ultrasound which showed that what appeared to be gas bubble was a stone but there is still was evidence that is concerning for cholecystitis. Thus Dr. Kulkarni was contacted. 05/30 Rotation greatly improved today. Patient says she does not recall the past couple days. Slept well. She states she is always cold but denies any fevers or other complaints 05/31-patient due for laparoscopic cholecystectomy at 1 PM today. No overnight events. Currently n.p.o. White count stable. Hemodynamic stable. Antihypertensives held this morning prior to surgery. Will review postoperatively. Postoperative care as per surgery 06/01-patient doing well. No overnight events. No concerns per staff. No fever chills. Doing well postoperatively. Advancing diet as tolerated. Anticipate discharge in 24-48 hours. - Constitutional Vitals: Vital Signs Temp Pulse Resp BP Pulse Ox 98.6 F 82 18 142/68 94 06/01/18 11:25 06/01/18 11:25 06/01/18 11:25 06/01/18 11:25 06/01/18 11:25 Period Temp Pulse Resp BP Sys/Munoz Pulse Ox Last 24 Hr 97.8 F-98.6 F 78-118 18-20 115-191/47-74 94-98 Intake and Output 06/01/18 06/01/18 06/01/18 05:59 13:59 21:59 Intake Total 460 50 Output Total 615 Balance -155 50 Weight 241 lb 8 oz Intake & Output: Intake & Output 06/01/18 06/01/18 06/01/18 05:59 13:59 21:59 Intake Total 460 50 Output Total 615 Balance -155 50 Weight 241 lb 8 oz Intake: IV 100 50 Zosyn 3.375 gm In Dextrose 5% 100 50 in Water 50 ml @ 100 mls/hr IV Q6H [facility] Rx#:[id number] Oral 360 Output: Drainage 15 NIKKI Drain 15 Void Amount 600 Other: Urine Appearance Clear Uretheral (Angelo) Clear Urine Color Straw Urine Odor Normal Uretheral (Angelo) Normal General appearance: cooperative, no acute distress Exam: Alert oriented nonlabored breathing No anxiety Morbidly obese Angelo is draining clear urine Medical - PN: Obj Da - Labs CBC & Chem 7: 06/01/18 12:39 05/31/18 04:44 Labs: Abnormal Lab Results 06/01/18 05/31/18 05/31/18 12:39 04:44 04:44 WBC 16.3 H Hgb 11.9 L 11.8 L Hct 35.8 L 35.2 L Gran % 83.5 H Lymph % (Auto) 9.5 L Gates % (Auto) 13.0 H Gran # 13.6 H Lymph # (Auto) Gates # (Auto) 1.1 H 1.1 H Carbon Dioxide 20 L Glucose 151 H Calcium 8.1 L Phosphorus 2.6 L Alkaline Phosphatase Total Protein 5.7 L Albumin 2.4 L Albumin/Globulin Ratio 0.7 L Triglycerides 269 H 05/30/18 05/30/18 03:50 03:50 WBC Hgb Hct Gran % Lymph % (Auto) 14.1 L Gates % (Auto) Gran # Lymph # (Auto) 1.3 L Gates # (Auto) Carbon Dioxide Glucose 178 H Calcium 8.2 L Phosphorus 2.4 L Alkaline Phosphatase 119 H Total Protein 5.8 L Albumin 2.6 L Albumin/Globulin Ratio 0.8 L Triglycerides 219 H Meds: Medications Acetaminophen (Tylenol) 650 mg PO Q4-6HP PRN PRN Reason: PAIN/FEVER > 101 Albuterol/Ipratropium (Duoneb) 3 ml NEB Q4HRT PRN PRN Reason: Bronchospasm Last Admin: 05/31/18 22:28 Dose: 3 ml Documented by: Bisacodyl (Dulcolax) 10 mg [place] Q2-3DAYS PRN PRN Reason: Constipation Dextrose (Dextrose 50%) 0 ml IV UD PRN PRN Reason: Hypoglycemia Diagnostic Test (Pha) (Accu-Chek) 1 each FS [facility] Last Admin: 06/01/18 12:13 Dose: 1 each Documented by: Docusate Sodium (Colace) 100 mg PO BID [facility] Last Admin: 06/01/18 09:11 Dose: 100 mg Documented by: Famotidine (Pepcid) 20 mg IV Q12 [facility] Last Admin: 06/01/18 09:10 Dose: 20 mg Documented by: Gabapentin (Neurontin) 300 mg PO BID [facility] Last Admin: 06/01/18 09:11 Dose: 300 mg Documented by: Glucose (Insta-Glucose) 15 gm PO PRN PRN PRN Reason: Hypoglycemia Hydralazine HCl (Apresoline) 0 mg IV Q2HP PRN PRN Reason: Hypertension Hydroxyzine HCl (Atarax) 25 mg PO QIDP PRN PRN Reason: Anxiety Piperacillin Sod/Tazobactam (Sod 3.375 gm/ Dextrose) 50 mls @ 100 mls/hr IV Q6H [facility] Last Admin: 06/01/18 12:15 Dose: 100 mls/hr Documented by: Insulin Human Lispro (Humalog) 0 unit SQ [facility]; Protocol Last Admin: 06/01/18 12:13 Dose: 8 units Documented by: Losartan Potassium (Cozaar) 100 mg PO DAILY [facility] Last Admin: 06/01/18 09:11 Dose: 100 mg Documented by: Morphine Sulfate (Ms Contin) 30 mg PO BID [facility] Last Admin: 06/01/18 09:12 Dose: 30 mg Documented by: Ondansetron HCl (Zofran) 4 mg IV Q4-6HP PRN PRN Reason: Nausea And Vomiting Last Admin: 06/01/18 09:15 Dose: 4 mg Documented by: Oxycodone/Acetaminophen (Percocet 10-325mg) 1 tab PO Q6HP PRN PRN Reason: Pain Level 3-6 Last Admin: 06/01/18 13:10 Dose: 1 tab Documented by: Promethazine HCl (Phenergan) 12.5 mg IV Q4-6HP PRN PRN Reason: Nausea And Vomiting Senna (Senokot) 1 tab PO HSP PRN PRN Reason: Constipation Sodium Chloride (Saline Flush) 10 ml IV Q8 [facility] Last Admin: 05/31/18 22:20 Dose: 10 ml Documented by: Tramadol HCl (Ultram) 50 mg PO Q4HP PRN PRN Reason: Pain Level 1-3 Last Admin: 06/01/18 09:11 Dose: 50 mg Documented by: Medical - PN: A/P - Time Spent With Patient Total time spent is greater than 50% in coordination of care (as documented) at patient's floor/unit and/or counseling patient: 25 - 35 minutes (1) Cholecystitis Status: Acute Assessment and plan: * Acute cholecystitis with cholelithiasis-postop day 1. Doing well. Advancing diet as per surgery. Postoperative management as per surgery. * Severe sepsis-clinically resolved. However persistent leukocytosis. Continue IV Zosyn * AMS resolved-now at baseline * Diabetes -continue prandial insulin postoperatively back in oral diet * History of asthma on albuterol/ipratropium * History of hypertension-continue losartan * Neuropathy on gabapentin * History of GERD-continue PPI * Depression anxiety/fibromyalgia * Sacral decubitus-follows with wound care * History of chronic pain-on naproxen/morphine/methocarbamol * Full code * Heparin subcu for DVT prophylaxis Plan * Continue diet advancement per surgery * Postoperative care as per surgery * PT OT * Pre-existing medical condition management as above Current Visit: Yes Medical - PN: Qual - VTE Deep Vein Thrombosis/Pulmonary Embolism Present on Admission: No
[2018-06-01 16:30] LABS: ALT/SGPT 18 U/l (0-40); Albumin 2.5 gm/dL (3.2-5.2); Albumin/Globulin Ratio 0.7 (1.0-2.3); Alkaline Phosphatase 71 U/L (39-117); Bilirubin,Direct < 0.2 mg/dL (0.0-0.3); Blood Urea Nitrogen 8 mg/dl (8-23); Gamma Glutamyl Transpeptidase 41 U/L (5-36); Uric Acid 3.4 mg/dL (2.5-8.0)
[2018-06-01] MEDS: 0.9 % SODIUM CHLORIDE 10 ML SYRINGE IV SCH ×2 (16:37→21:00)
[2018-06-01] MEDS: hydrOXYzine 25 MG TABLET PO PRN (23:19)
[2018-06-02] MEDS: oxyCODONE/APAP 10/325MG TABLET PO PRN ×3 (02:23→16:51)
[2018-06-02 05:45] LABS: Basophils # (Auto) 0 K/mcL (0.0-0.3); Basophils % (Auto) 0.4 % (0.0-2.0); Eosinophils # (Auto) 0.3 K/mcL (0.0-0.7); Eosinophils % (Auto) 2.3 % (0.0-7.0); Granulocytes % (Auto) 73.2 % (38.0-78.0); Lymphocytes # (Auto) 1.6 K/mcL (1.5-4.8); Lymphocytes % (Auto) 14.9 % (15.5-49.0); Mean Cell Volume 88.4 fL (80.0-100.0); Mean Corpuscular HGB Conc 33.3 g/dL (31.0-36.0); Monocytes % (Auto) 9.2 % (1.0-12.0); Platelet Count 352 K/mcL (140-440); RBC 3.77 M/mcL (4.00-5.20)
[2018-06-02] MEDS: 0.9 % SODIUM CHLORIDE 10 ML SYRINGE IV SCH ×3 (05:46→20:55)
[2018-06-02] MEDS: PIPERACILLIN SODIUM/TAZOBACTAM 3.375 GM in DEXTROSE 5% IN WATER 50 ML IV SCH ×4 (05:46→23:30)
[2018-06-02 06:26] LABS: ALT/SGPT 15 U/l (0-40); Albumin 2.5 gm/dL (3.2-5.2); Albumin/Globulin Ratio 0.8 (1.0-2.3); Alkaline Phosphatase 70 U/L (39-117); Bilirubin,Direct < 0.2 mg/dL (0.0-0.3); Blood Urea Nitrogen 8 mg/dl (8-23); Gamma Glutamyl Transpeptidase 38 U/L (5-36); Uric Acid 3.1 mg/dL (2.5-8.0)
[2018-06-02] MEDS: traMADol 50 MG TABLET PO PRN ×3 (07:28→22:25)
[2018-06-02] MEDS: INSULIN LISPRO 1 UNIT/0.01 ML UNIT SQ SCH ×4 (07:28→20:55)
[2018-06-02] MEDS: GABAPENTIN 300 MG CAPSULE PO SCH ×2 (08:54→20:40)
[2018-06-02] MEDS: FAMOTIDINE/PF 20 MG/2 ML VIAL IV SCH ×2 (08:54→20:41)
[2018-06-02] MEDS: morphine 30 MG TAB.SR.12H PO SCH ×2 (08:54→20:41)
[2018-06-02] MEDS: LOSARTAN 50 MG TABLET PO SCH (08:54)
[2018-06-02] MEDS: DOCUSATE SODIUM 100 MG CAPSULE PO SCH ×2 (08:54→20:41)
--- NOTE | 2018-06-02 09:46 | Internal Med Progress Note ---
Medical - PN: Subj Patient information: Note initiated : 06/02/18 at 9:44 am Service Date, if different from initiated Date: [] Patient: Diogo Aly a 73 y/o F admitted on 05/29/18 for weakness, altered mental status. Chief Complaint: [] Interval history: Ms. Aly is a 73 year old F who was brought in for altered mental status. History is difficult to obtain from patient as she is slow to answer and appears confused. Often times repeating herself. There was a report that she was outside all night which I have a hard time believing, the patient could not help me with that history. In asking her what brought her in she started talking about a fall that she had on her buttocks when asked if he was today she said yes. She does complain of fevers and chills and headache denies abdominal pain until I palpate her abdomen. In the ED she was found to have a mild leukocytosis with a elevated lactate up t o 3.8. 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 She also had a CT abdomen pelvis which was concerning for gangrenous gallbladder however patient underwent ultrasound which showed that what appeared to be gas bubble was a stone but there is still was evidence that is concerning for cholecystitis. Thus Dr. Kulkarni was contacted. 05/30 Rotation greatly improved today. Patient says she does not recall the past couple days. Slept well. She states she is always cold but denies any fevers or other complaints 05/31-patient due for laparoscopic cholecystectomy at 1 PM today. No overnight events. Currently n.p.o. White count stable. Hemodynamic stable. Antihypertensives held this morning prior to surgery. Will review postoperatively. Postoperative care as per surgery 06/01-patient doing well. No overnight events. No concerns per staff. No fever chills. Doing well postoperatively. Advancing diet as tolerated. Anticipate discharge in 24-48 hours. 06/02-patient doing well. White count down to 11,000. A much alert oriented and tolerating diet as per surgery recommendations. Ongoing physical therapy. Denies overnight event including fever chills or concerns per staff. No significant abdominal pain. - Constitutional Vitals: Vital Signs Temp Pulse Resp BP Pulse Ox 99.1 F H 90 18 136/61 91 06/02/18 07:44 06/02/18 07:44 06/02/18 07:44 06/02/18 07:44 06/02/18 04:11 Period Temp Pulse Resp BP Sys/Munoz Pulse Ox Last 24 Hr 97.6 F-99.1 F 78-92 16-18 131-154/55-68 91-97 Intake and Output 06/01/18 06/02/18 06/02/18 21:59 05:59 13:59 Intake Total 170 50 50 Output Total 625 2052 Balance -306 -5196 50 Weight 234 lb 8 oz Intake & Output: Intake & Output 06/01/18 06/02/18 06/02/18 21:59 05:59 13:59 Intake Total 170 50 50 Output Total 625 1640 Balance -246 -1746 50 Weight 234 lb 8 oz Intake: IV 50 50 50 Zosyn 3.375 gm In Dextrose 5% 50 50 50 in Water 50 ml @ 100 mls/hr IV Q6H [facility] Rx#:[id number] Oral 120 0 Output: Drainage 75 65 NIKKI Drain 75 65 Urine Catheter Amount 550 1575 Other: Meal Dinner Percent of Meal Consumed 5% Urine Appearance Cloudy Urine Color Bright Yellow General appearance: no acute distress Exam: Alert oriented Morbidly obese No anxiety No labored breathing Nondistended abdomen Medical - PN: Obj Da - Labs CBC & Chem 7: 06/02/18 03:46 06/02/18 03:46 Labs: Abnormal Lab Results 06/02/18 06/02/18 06/01/18 03:46 03:46 15:00 WBC 11.1 H RBC 3.77 L Hgb 11.1 L Hct 33.4 L Gran % Lymph % (Auto) 14.9 L [place] % (Auto) Gran # 8.1 H [place] # (Auto) 1.0 H Carbon Dioxide 19 L Glucose 169 H 237 H Calcium 8.3 L 8.4 L Phosphorus 2.2 L 2.3 L GGT 38 H 41 H Total Protein 5.8 L Albumin 2.5 L 2.5 L Albumin/Globulin Ratio 0.8 L 0.7 L Triglycerides 190 H 217 H 06/01/18 05/31/18 05/31/18 12:39 04:44 04:44 WBC 16.3 H RBC Hgb 11.9 L 11.8 L Hct 35.8 L 35.2 L Gran % 83.5 H Lymph % (Auto) 9.5 L [place] % (Auto) 13.0 H Gran # 13.6 H [place] # (Auto) 1.1 H 1.1 H Carbon Dioxide 20 L Glucose 151 H Calcium 8.1 L Phosphorus 2.6 L GGT Total Protein 5.7 L Albumin 2.4 L Albumin/Globulin Ratio 0.7 L Triglycerides 269 H Meds: Medications Acetaminophen (Tylenol) 650 mg PO Q4-6HP PRN PRN Reason: PAIN/FEVER > 101 Albuterol/Ipratropium (Duoneb) 3 ml NEB Q4HRT PRN PRN Reason: Bronchospasm Last Admin: 05/31/18 22:28 Dose: 3 ml Documented by: Bisacodyl (Dulcolax) 10 mg [place] Q2-3DAYS PRN PRN Reason: Constipation Dextrose (Dextrose 50%) 0 ml IV UD PRN PRN Reason: Hypoglycemia Diagnostic Test (Pha) (Accu-Chek) 1 each FS [facility] Last Admin: 06/02/18 07:22 Dose: 1 each Documented by: Docusate Sodium (Colace) 100 mg PO BID [facility] Last Admin: 06/02/18 08:54 Dose: 100 mg Documented by: Famotidine (Pepcid) 20 mg IV Q12 [facility] Last Admin: 06/02/18 08:54 Dose: 20 mg Documented by: Gabapentin (Neurontin) 300 mg PO BID [facility] Last Admin: 06/02/18 08:54 Dose: 300 mg Documented by: Glucose (Insta-Glucose) 15 gm PO PRN PRN PRN Reason: Hypoglycemia Hydralazine HCl (Apresoline) 0 mg IV Q2HP PRN PRN Reason: Hypertension Hydroxyzine HCl (Atarax) 25 mg PO QIDP PRN PRN Reason: Anxiety Last Admin: 06/01/18 23:19 Dose: 25 mg Documented by: Piperacillin Sod/Tazobactam (Sod 3.375 gm/ Dextrose) 50 mls @ 100 mls/hr IV Q6H [facility] Last Infusion: 06/02/18 06:58 Dose: Infused Documented by: Insulin Human Lispro (Humalog) 0 unit SQ [facility]; Protocol Last Admin: 06/02/18 07:28 Dose: 2 units Documented by: Losartan Potassium (Cozaar) 100 mg PO DAILY [facility] Last Admin: 06/02/18 08:54 Dose: 100 mg Documented by: Morphine Sulfate (Ms Contin) 30 mg PO BID [facility] Last Admin: 06/02/18 08:54 Dose: 30 mg Documented by: Ondansetron HCl (Zofran) 4 mg IV Q4-6HP PRN PRN Reason: Nausea And Vomiting Last Admin: 06/01/18 09:15 Dose: 4 mg Documented by: Oxycodone/Acetaminophen (Percocet 10-325mg) 1 tab PO Q6HP PRN PRN Reason: Pain Level 3-6 Last Admin: 06/02/18 02:23 Dose: 1 tab Documented by: Promethazine HCl (Phenergan) 12.5 mg IV Q4-6HP PRN PRN Reason: Nausea And Vomiting Senna (Senokot) 1 tab PO HSP PRN PRN Reason: Constipation Sodium Chloride (Saline Flush) 10 ml IV Q8 [facility] Last Admin: 06/02/18 05:46 Dose: 10 ml Documented by: Tramadol HCl (Ultram) 50 mg PO Q4HP PRN PRN Reason: Pain Level 1-3 Last Admin: 06/02/18 07:28 Dose: 50 mg Documented by: Medical - PN: A/P - Time Spent With Patient Total time spent is greater than 50% in coordination of care (as documented) at patient's floor/unit and/or counseling patient: 15 - 24 minutes (1) Cholecystitis Status: Acute Assessment and plan: * Acute cholecystitis with cholelithiasis-postop day 2. Doing well. Ongoing management per surgery. Advancing diet.. * Severe sepsis-clinically resolved. White count down to 11,000. On Zosyn * AMS resolved-mentation at baseline * Diabetes -continue prandial insulin * History of asthma on albuterol/ipratropium * History of hypertension-continue losartan * Neuropathy on gabapentin * History of GERD-continue PPI * Depression anxiety/fibromyalgia * Sacral decubitus-follows with wound care * History of chronic pain-on naproxen/morphine/methocarbamol * Full code * Heparin subcu for DVT prophylaxis Plan * Aggressive postoperative rehab * Diet advancement per surgery * Pre-existing medical condition management as above * Discharge planning per surgery Current Visit: Yes Medical - PN: Qual - VTE Deep Vein Thrombosis/Pulmonary Embolism Present on Admission: No
--- NOTE | 2018-06-02 13:50 | Surgical Pathology Report ---
HISTOLOGY SPECIMEN MICROSCOPIC DIAGNOSIS GALLBLADDER CHOLECYSTECTOMY: -- ACUTE AND CHRONIC CHOLECYSTITIS WITH PATCHY SURFACE EROSIONS. -- CHOLELITHIASIS. (DMT:sln) PROCEDURAL IMPRESSION Cholecystitis/gallstones. GROSS DESCRIPTION Received in formalin labeled with the patient information and designated gallbladder, is a 5.7 x 3.5 x 3 cm disrupted red-baum to purple-baum gallbladder. The serosa is roughened and hemorrhagic. A stone is present protruding out of one end of the gallbladder. The exterior is inked black. No cystic duct can be identified. The mucosa is roughened and hart-baum. The wall ranges in thickness from very thin to 0.9 cm. Two stones are found within the gallbladder. The larger stone found protruding from the gallbladder measures 3.5 x 2.9 x 2.8 cm and the smaller stone is 2.1 x 0.8 x 1.8 cm. Traffic Rate Analyst sections submitted two cassettes. (KGW:sln) Electronically Signed by: Brad Jaquez M.D.
--- NOTE | 2018-06-02 17:04 | General Surgery Progress Note ---
Subjective Patient reports: feels better, still having pain, tolerating a regular diet, flatus, bowel movement, fever Narrative: Note initiated : 06/02/18 at 5:02 pm Service Date, if different from initiated Date: [] Patient: Diogo Aly 73 y/o F admitted on 05/29/18 for weakness, altered mental status. Chief Complaint: [Patient is doing well. She states that she is having a moderate amount of pain but this is anticipated due to her large incision. She is doing well otherwise. Her white count is 11.1. Her phosphorus is slightly decreased. Her liver panel has normalized. Bilious drainage from the Adi-Ferrell is significantly reduced and she will probably not need ERCP. Anticipate that she can be transferred to half-way and rehabilitation tomorrow.] Objective Temp Pulse Resp BP Pulse Ox 99.7 F H 86 15 131/60 96 06/02/18 16:00 06/02/18 16:00 06/02/18 11:31 06/02/18 16:00 06/02/18 16:00 - Additional Data Intake & Output - Last 24 hours: Intake & Output 05/31/18 06/01/18 06/02/18 06/03/18 05:59 05:59 05:59 05:59 Intake Total 2160 2160 320 100 Output Total 1805 1278 2265 930 Balance 355 882 -1945 -830 Weight 240 lb 8 oz 241 lb 8 oz 234 lb 8 oz 234 lb 8 oz - General physical appearance well developed, well nourished, moderate distress, chronically ill - Eyes PERRL, normal ocular movement - ENT normal pinna, normal nares, normal mucosa, no hearing loss, no congestion - Neck no masses, no bruits, trachea midline, no lymphadenopathy, no venous distension - Respiratory normal expansion, normal respiratory effort, clear to auscultation - Cardiovascular Cardiovascular exam: Present: normal rate and rhythm, RRR, +S1, +S2. Absent: irregular rhythm, JVD, tachycardia - Abdomen non tender, bowel sounds (present), surgical scars (surgical incision with some bloody drainage; she has active bowel sounds), masses (none) - Integumentary no rash, no growths, no abnormal pigmentation - Neurologic normal coordination, normal sensation - Musculoskeletal normal gait, normal posture - Psychiatric oriented to time, oriented to person, oriented to place, speech is normal, memory intact - Labs 06/02/18 03:46 06/02/18 03:46 Diabetes panel 06/01/18 06/02/18 Range/Units 12:39 03:46 Sodium Not Reportable 139 Potassium Not Reportable 4.0 Chloride Not Reportable 105 Carbon Dioxide Not Reportable 24 BUN Not Reportable 8 Creatinine Not Reportable 0.7 Glucose TNP 169 H Calcium Not Reportable 8.3 L AST Not Reportable 16 ALT Not Reportable 15 Alkaline Phosphatase Not Reportable 70 Total Protein Not Reportable 5.8 L Albumin Not Reportable 2.5 L Triglycerides Not Reportable 190 H Calcium panel 06/01/18 06/02/18 Range/Units 12:39 03:46 Calcium Not Reportable 8.3 L Phosphorus Not Reportable 2.2 L Albumin Not Reportable 2.5 L Pituitary panel 06/01/18 06/02/18 Range/Units 12:39 03:46 Sodium Not Reportable 139 Potassium Not Reportable 4.0 Chloride Not Reportable 105 Carbon Dioxide Not Reportable 24 BUN Not Reportable 8 Creatinine Not Reportable 0.7 Glucose TNP 169 H Calcium Not Reportable 8.3 L Adrenal panel 06/01/18 06/02/18 Range/Units 12:39 03:46 Sodium Not Reportable 139 Potassium Not Reportable 4.0 Chloride Not Reportable 105 Carbon Dioxide Not Reportable 24 BUN Not Reportable 8 Creatinine Not Reportable 0.7 Glucose TNP 169 H Calcium Not Reportable 8.3 L Total Bilirubin Not Reportable 0.4 AST Not Reportable 16 ALT Not Reportable 15 Alkaline Phosphatase Not Reportable 70 Total Protein Not Reportable 5.8 L Albumin Not Reportable 2.5 L Assessment and Plan (1) Cholelithiasis and cholecystitis without obstruction Status: Acute Assessment and plan: Patient is clinically improved She feels better except for incisional pain; she was much more alert Advance to regular diet Current Visit: Yes (2) SIRS (systemic inflammatory response syndrome) Status: Resolved Assessment and plan: Clinically improved with normalization of lactic acid level Current Visit: Yes (3) Hyperglycemia due to type 2 diabetes mellitus Status: Chronic Assessment and plan: hyperglycemia is better controlled Current Visit: Yes (4) Gastroesophageal reflux Problem details: takes omeprazole for control of this Status: Chronic Current Visit: No (5) Essential hypertension Status: Chronic Current Visit: No - Time Spent With Patient Total time spent is greater than 50% in coordination of care (as documented) at patient's floor/unit and/or counseling patient:
--- NOTE | 2018-06-02 20:56 | General Surgery Progress Note ---
Subjective Patient reports: other (patient is gradually recovering from laparoscopic cholecystectomy for acute cholecystitis. Her sacral pressure ulcer site is draining excessive clear watery fluid.) Narrative: Note initiated : 06/02/18 at 8:53 pm Service Date, if different from initiated Date: [] Patient: Diogo Aly 73 y/o F admitted on 05/29/18 for weakness, altered mental status. Chief Complaint: [] Objective Temp Pulse Resp BP Pulse Ox 99.7 F H 86 15 131/60 96 06/02/18 16:00 06/02/18 16:00 06/02/18 11:31 06/02/18 16:00 06/02/18 16:00 - Additional Data Intake & Output - Last 24 hours: Intake & Output 05/31/18 06/01/18 06/02/18 06/03/18 05:59 05:59 05:59 05:59 Intake Total 2160 2160 320 340 Output Total 1805 1278 2265 940 Balance 355 035 -5424 -119 Weight 240 lb 8 oz 241 lb 8 oz 234 lb 8 oz 234 lb 8 oz 06/02/18 20:54 AVSS I had seen this patient earlier along with Alejandra BUTT and had inspected her wounds. Patient complains of incisional pain. She is alert and now starting to turn around in the bed on her own. She has excessive clear drainage from the sacral pressure ulcer site. We will treat this with topical antibiotic application and offloading this area. Other pressure ulcers sites of buttocks trochanteric area are gradually demarcating and declaring itself. - Labs 06/02/18 03:46 06/02/18 03:46 Diabetes panel 06/01/18 06/02/18 Range/Units 12:39 03:46 Sodium Not Reportable 139 Potassium Not Reportable 4.0 Chloride Not Reportable 105 Carbon Dioxide Not Reportable 24 BUN Not Reportable 8 Creatinine Not Reportable 0.7 Glucose TNP 169 H Calcium Not Reportable 8.3 L AST Not Reportable 16 ALT Not Reportable 15 Alkaline Phosphatase Not Reportable 70 Total Protein Not Reportable 5.8 L Albumin Not Reportable 2.5 L Triglycerides Not Reportable 190 H Calcium panel 06/01/18 06/02/18 Range/Units 12:39 03:46 Calcium Not Reportable 8.3 L Phosphorus Not Reportable 2.2 L Albumin Not Reportable 2.5 L Pituitary panel 06/01/18 06/02/18 Range/Units 12:39 03:46 Sodium Not Reportable 139 Potassium Not Reportable 4.0 Chloride Not Reportable 105 Carbon Dioxide Not Reportable 24 BUN Not Reportable 8 Creatinine Not Reportable 0.7 Glucose TNP 169 H Calcium Not Reportable 8.3 L Adrenal panel 06/01/18 06/02/18 Range/Units 12:39 03:46 Sodium Not Reportable 139 Potassium Not Reportable 4.0 Chloride Not Reportable 105 Carbon Dioxide Not Reportable 24 BUN Not Reportable 8 Creatinine Not Reportable 0.7 Glucose TNP 169 H Calcium Not Reportable 8.3 L Total Bilirubin Not Reportable 0.4 AST Not Reportable 16 ALT Not Reportable 15 Alkaline Phosphatase Not Reportable 70 Total Protein Not Reportable 5.8 L Albumin Not Reportable 2.5 L Assessment and Plan (1) Pressure ulcer of coccygeal region, stage 1 Problem details: Recommend offloading and protection with foam border dressing Status: Chronic Current Visit: Yes (2) 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 From the wound care perspective, she continues to have clear watery drai nage from the granulating wound of the posterior sacral area. Will treat this with frequent cleansing and topical antibiotic application. The other pressure ulcers sites of buttocks and trochanters will be Padded, covered with complex dressings, coated with antiseptic preparations. Plan: Refer to wound care orders. We'll be following this patient along with you. - Time Spent With Patient Total time spent is greater than 50% in coordination of care (as documented) at patient's floor/unit and/or counseling patient:
[2018-06-02] MEDS: hydrOXYzine 25 MG TABLET PO PRN (22:25)
[2018-06-03] MEDS: oxyCODONE/APAP 10/325MG TABLET PO PRN ×4 (00:15→21:03)
[2018-06-03] MEDS: 0.9 % SODIUM CHLORIDE 10 ML SYRINGE IV SCH ×3 (05:02→21:43)
[2018-06-03] MEDS: PIPERACILLIN SODIUM/TAZOBACTAM 3.375 GM in DEXTROSE 5% IN WATER 50 ML IV SCH ×3 (05:03→17:15)
[2018-06-03] MEDS: traMADol 50 MG TABLET PO PRN ×3 (05:03→23:22)
[2018-06-03 07:01] LABS: Basophils # (Auto) 0.1 K/mcL (0.0-0.3); Basophils % (Auto) 0.8 % (0.0-2.0); Eosinophils # (Auto) 0.6 K/mcL (0.0-0.7); Eosinophils % (Auto) 5.9 % (0.0-7.0); Granulocytes % (Auto) 67.7 % (38.0-78.0); Lymphocytes # (Auto) 1.6 K/mcL (1.5-4.8); Lymphocytes % (Auto) 15.8 % (15.5-49.0); Mean Cell Volume 88.2 fL (80.0-100.0); Mean Corpuscular HGB Conc 32.9 g/dL (31.0-36.0); Monocytes % (Auto) 9.8 % (1.0-12.0); Platelet Count 348 K/mcL (140-440); RBC 4.08 M/mcL (4.00-5.20); Red Cell Distribution Width 13.6 % (11.5-14.5)
[2018-06-03 07:17] LABS: ALT/SGPT 13 U/l (0-40); Albumin 2.3 gm/dL (3.2-5.2); Albumin/Globulin Ratio 0.6 (1.0-2.3); Alkaline Phosphatase 86 U/L (39-117); Bilirubin,Direct < 0.2 mg/dL (0.0-0.3); Blood Urea Nitrogen 6 mg/dl (8-23); Gamma Glutamyl Transpeptidase 58 U/L (5-36); Uric Acid 2.3 mg/dL (2.5-8.0)
[2018-06-03] MEDS: INSULIN LISPRO 1 UNIT/0.01 ML UNIT SQ SCH ×4 (07:43→21:04)
[2018-06-03] MEDS: LOSARTAN 50 MG TABLET PO SCH (09:41)
[2018-06-03] MEDS: morphine 30 MG TAB.SR.12H PO SCH ×2 (09:41→21:03)
[2018-06-03] MEDS: DOCUSATE SODIUM 100 MG CAPSULE PO SCH ×2 (09:41→21:03)
[2018-06-03] MEDS: FAMOTIDINE/PF 20 MG/2 ML VIAL IV SCH ×2 (09:42→21:04)
[2018-06-03] MEDS: GABAPENTIN 300 MG CAPSULE PO SCH ×2 (09:42→21:04)
--- NOTE | 2018-06-03 11:01 | Internal Med Progress Note ---
Medical - PN: Subj Patient information: Note initiated : 06/03/18 at 11:01 am Service Date, if different from initiated Date: [] Patient: Diogo Aly a 73 y/o F admitted on 05/29/18 for weakness, altered mental status. Chief Complaint: [] Interval history: Ms. Aly is a 73 year old F who was brought in for altered mental status. History is difficult to obtain from patient as she is slow to answer and appears confused. Often times repeating herself. There was a report that she was outside all night which I have a hard time believing, the patient could not help me with that history. In asking her what brought her in she started talking about a fall that she had on her buttocks when asked if he was today she said yes. She does complain of fevers and chills and headache denies abdominal pain until I palpate her abdomen. In the ED she was found to have a mild leukocytosis with a elevated lactate up to 3.8. 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 She also had a CT abdomen pelvis which was concerning for gangrenous gallbladder however patient underwent ultrasound which showed that what appeared to be gas bubble was a stone but there is still was evidence that is concerning for cholecystitis. Thus Dr. Kulkarni was contacted. 05/30 Rotation greatly improved today. Patient says she does not recall the past couple days. Slept well. She states she is always cold but denies any fevers or other complaints 05/31-patient due for laparoscopic cholecystectomy at 1 PM today. No overnight events. Currently n.p.o. White count stable. Hemodynamic stable. Antihypertensives held this morning prior to surgery. Will review postoperatively. Postoperative care as per surgery 06/01-patient doing well. No overnight events. No concerns per staff. No fever chills. Doing well postoperatively. Advancing diet as tolerated. Anticipate discharge in 24-48 hours. 06/02-patient doing well. White count down to 11,000. A much alert oriented and tolerating diet as per surgery recommendations. Ongoing physical therapy. Denies overnight event including fever chills or concerns per staff. No significant abdominal pain. 06/03-patient doing well. No overnight events. No concerns per staff. No fever chills nausea vomiting. Tolerating diet. Ongoing discharge planning. - Constitutional Vitals: Vital Signs Temp Pulse Resp BP Pulse Ox 98.2 F 85 18 136/75 93 06/03/18 08:39 06/03/18 08:39 06/03/18 08:39 06/03/18 08:39 06/03/18 08:39 Period Temp Pulse Resp BP Sys/Munoz Pulse Ox Last 24 Hr 97.6 F-99.7 F 76-89 15-18 130-152/58-75 91-96 Intake and Output 06/02/18 06/03/18 06/03/18 21:59 05:59 13:59 Intake Total 340 500 480 Output Total 760 1520 Balance -420 -1020 480 Weight 235 lb Intake & Output: Intake & Output 06/02/18 06/03/18 06/03/18 21:59 05:59 13:59 Intake Total 340 500 480 Output Total 760 1520 Balance -420 -1020 480 Weight 235 lb Intake: IV 100 100 Zosyn 3.375 gm In Dextrose 5% 100 100 in Water 50 ml @ 100 mls/hr IV Q6H [facility] Rx#:[id number] Oral 240 400 480 Output: Drainage 10 20 NIKKI Drain 10 20 Urine Catheter Amount 750 500 Void Amount 1000 Other: Meal Dinner Breakfast Percent of Meal Consumed 25% 50% Feeding Ability Assist with Tray Set Up Assist with Tray Set Up General appearance: cooperative, no acute distress Exam: Resting comfortably nonlabored breathing No anxiety No abdominal pain or distention Medical - PN: Obj Da - Labs CBC & Chem 7: 06/03/18 05:36 06/03/18 05:36 Labs: Abnormal Lab Results 06/03/18 06/03/18 06/02/18 05:36 05:36 03:46 WBC RBC Hgb 11.8 L Hct Gran % Lymph % (Auto) Gran # [place] # (Auto) 1.0 H Carbon Dioxide BUN 6 L Glucose 179 H 169 H Uric Acid 2.3 L Calcium 8.4 L 8.3 L Phosphorus 2.2 L GGT 58 H 38 H Total Protein 5.8 L Albumin 2.3 L 2.5 L Albumin/Globulin Ratio 0.6 L 0.8 L Triglycerides 176 H 190 H 06/02/18 06/01/18 06/01/18 03:46 15:00 12:39 WBC 11.1 H 16.3 H RBC 3.77 L Hgb 11.1 L 11.9 L Hct 33.4 L 35.8 L Gran % 83.5 H Lymph % (Auto) 14.9 L 9.5 L Gran # 8.1 H 13.6 H [place] # (Auto) 1.0 H 1.1 H Carbon Dioxide 19 L BUN Glucose 237 H Uric Acid Calcium 8.4 L Phosphorus 2.3 L GGT 41 H Total Protein Albumin 2.5 L Albumin/Globulin Ratio 0.7 L Triglycerides 217 H Meds: Medications Acetaminophen (Tylenol) 650 mg PO Q4-6HP PRN PRN Reason: PAIN/FEVER > 101 Albuterol/Ipratropium (Duoneb) 3 ml NEB Q4HRT PRN PRN Reason: Bronchospasm Last Admin: 05/31/18 22:28 Dose: 3 ml Documented by: Bisacodyl (Dulcolax) 10 mg TX Q2-3DAYS PRN PRN Reason: Constipation Dextrose (Dextrose 50%) 0 ml IV UD PRN PRN Reason: Hypoglycemia Diagnostic Test (Pha) (Accu-Chek) 1 each FS ACHS [facility] Last Admin: 06/03/18 07:05 Dose: 1 each Documented by: Docusate Sodium (Colace) 100 mg PO BID [facility] Last Admin: 06/03/18 09:41 Dose: 100 mg Documented by: Famotidine (Pepcid) 20 mg IV Q12 [facility] Last Admin: 06/03/18 09:42 Dose: 20 mg Documented by: Gabapentin (Neurontin) 300 mg PO BID [facility] Last Admin: 06/03/18 09:42 Dose: 300 mg Documented by: Glucose (Insta-Glucose) 15 gm PO PRN PRN PRN Reason: Hypoglycemia Hydralazine HCl (Apresoline) 0 mg IV Q2HP PRN PRN Reason: Hypertension Hydroxyzine HCl (Atarax) 25 mg PO QIDP PRN PRN Reason: Anxiety Last Admin: 06/02/18 22:25 Dose: 25 mg Documented by: Piperacillin Sod/Tazobactam (Sod 3.375 gm/ Dextrose) 50 mls @ 100 mls/hr IV Q6H [facility] Last Infusion: 06/03/18 05:33 Dose: Infused Documented by: Insulin Human Lispro (Humalog) 0 unit SQ ACHS [facility]; Protocol Last Admin: 06/03/18 07:43 Dose: 6 units Documented by: Losartan Potassium (Cozaar) 100 mg PO DAILY [facility] Last Admin: 06/03/18 09:41 Dose: 100 mg Documented by: Morphine Sulfate (Ms Contin) 30 mg PO BID [facility] Last Admin: 06/03/18 09:41 Dose: 30 mg Documented by: Ondansetron HCl (Zofran) 4 mg IV Q4-6HP PRN PRN Reason: Nausea And Vomiting Last Admin: 06/01/18 09:15 Dose: 4 mg Documented by: Oxycodone/Acetaminophen (Percocet 10-325mg) 1 tab PO Q6HP PRN PRN Reason: Pain Level 3-6 Last Admin: 06/03/18 07:01 Dose: 1 tab Documented by: Promethazine HCl (Phenergan) 12.5 mg IV Q4-6HP PRN PRN Reason: Nausea And Vomiting Senna (Senokot) 1 tab PO HSP PRN PRN Reason: Constipation Sodium Chloride (Saline Flush) 10 ml IV Q8 [facility] Last Admin: 06/03/18 05:02 Dose: Not Given Documented by: Tramadol HCl (Ultram) 50 mg PO Q4HP PRN PRN Reason: Pain Level 1-3 Last Admin: 06/03/18 05:03 Dose: 50 mg Documented by: Medical - PN: A/P - Time Spent With Patient Total time spent is greater than 50% in coordination of care (as documented) at patient's floor/unit and/or counseling patient: 15 - 24 minutes (1) Cholecystitis Status: Acute Assessment and plan: * Acute cholecystitis with cholelithiasis-postop day 3. Doing well. Tolerating diet. Possible discharge per surgery * Severe sepsis-clinically resolved. White count down to white count down from 16.3-9.9. On Zosyn * AMS resolved-mentation at baseline * Diabetes -continue prandial insulin * History of asthma on albuterol/ipratropium * History of hypertension-continue losartan * Neuropathy on gabapentin * History of GERD-continue PPI * Depression anxiety/fibromyalgia * Sacral decubitus-wound care on board. Managed per wound care recommendations * History of chronic pain-on naproxen/morphine/methocarbamol * Full code * Heparin subcu for DVT prophylaxis Plan * Continue PT OT * Continue wound management per wound care * Pre-existing medical condition management as above * Discharge planning per surgery Current Visit: Yes Medical - PN: Qual - VTE Deep Vein Thrombosis/Pulmonary Embolism Present on Admission: No
--- NOTE | 2018-06-03 13:57 | General Surgery Progress Note ---
Subjective Patient reports: still having pain, pain is less, tolerating a regular diet, flatus, bowel movement, afebrile Narrative: Note initiated : 06/03/18 at 1:54 pm Service Date, if different from initiated Date: [] Patient: Diogo Aly 73 y/o F admitted on 05/29/18 for weakness, altered mental status. Chief Complaint: [patient continues to do well. She is in moderate amount of incisional pain. She is afebrile and her white blood count is 9.9. Her LFTs have normalized. Adi-Ferrell drain has slightly bilious tented drainage of about 100 cc daily. This is much less bilious than the last few days and the volume is continuing to decrease.] Objective Temp Pulse Resp BP Pulse Ox 98.2 F 85 18 136/75 93 06/03/18 08:39 06/03/18 08:39 06/03/18 08:39 06/03/18 08:39 06/03/18 08:39 - Additional Data Intake & Output - Last 24 hours: Intake & Output 06/01/18 06/02/18 06/03/18 06/04/18 05:59 05:59 05:59 05:59 Intake Total 2160 320 890 530 Output Total 1278 2265 3210 Balance 882 -1945 -2320 530 Weight 241 lb 8 oz 234 lb 8 oz 235 lb - General physical appearance well developed, moderate distress, moderate pain - Eyes PERRL, normal ocular movement - ENT normal pinna, normal nares, normal mucosa, no hearing loss, no congestion - Neck no masses, no bruits, trachea midline, no lymphadenopathy, no venous distension - Respiratory normal expansion, normal respiratory effort, clear to auscultation - Cardiovascular Cardiovascular exam: Present: normal rate and rhythm, RRR, +S1, +S2. Absent: JVD, tachycardia - Abdomen tender (moderate incisional tenderness; good bowel sounds), bowel sounds (presen t), surgical scars (none), masses (none) - Integumentary no rash, no growths, no abnormal pigmentation - Neurologic normal coordination, normal sensation - Musculoskeletal normal gait, normal posture - Psychiatric oriented to time, oriented to person, oriented to place, speech is normal, memory intact - Labs 06/03/18 05:36 06/03/18 05:36 Diabetes panel 06/03/18 Range/Units 05:36 Sodium 137 (133-145) mmol/L Potassium 4.0 (3.3-5.1) mmol/L Chloride 100 (96-108) mmol/L Carbon Dioxide 25 (22-30) mmol/L BUN 6 L (8-23) mg/dl Creatinine 0.6 (0.6-1.1) mg/dl Glucose 179 H (70-105) mg/dL Calcium 8.4 L (8.6-10.4) mg/dl AST 17 (0-37) U/l ALT 13 (0-40) U/l Alkaline Phosphatase 86 (39-117) U/L Total Protein 5.9 (5.9-8.4) gm/dL Albumin 2.3 L (3.2-5.2) gm/dL Triglycerides 176 H (<150) mg/dl Calcium panel 06/03/18 Range/Units 05:36 Calcium 8.4 L (8.6-10.4) mg/dl Phosphorus 2.9 (2.7-4.5) mg/dL Albumin 2.3 L (3.2-5.2) gm/dL Pituitary panel 06/03/18 Range/Units 05:36 Sodium 137 (133-145) mmol/L Potassium 4.0 (3.3-5.1) mmol/L Chloride 100 (96-108) mmol/L Carbon Dioxide 25 (22-30) mmol/L BUN 6 L (8-23) mg/dl Creatinine 0.6 (0.6-1.1) mg/dl Glucose 179 H (70-105) mg/dL Calcium 8.4 L (8.6-10.4) mg/dl Adrenal panel 06/03/18 Range/Units 05:36 Sodium 137 (133-145) mmol/L Potassium 4.0 (3.3-5.1) mmol/L Chloride 100 (96-108) mmol/L Carbon Dioxide 25 (22-30) mmol/L BUN 6 L (8-23) mg/dl Creatinine 0.6 (0.6-1.1) mg/dl Glucose 179 H (70-105) mg/dL Calcium 8.4 L (8.6-10.4) mg/dl Total Bilirubin 0.5 (0.0-1.0) mg/dL AST 17 (0-37) U/l ALT 13 (0-40) U/l Alkaline Phosphatase 86 (39-117) U/L Total Protein 5.9 (5.9-8.4) gm/dL Albumin 2.3 L (3.2-5.2) gm/dL Assessment and Plan (1) Cholelithiasis and cholecystitis without obstruction Status: Acute Assessment and plan: Patient is clinically improved She feels better except for incisional pain; Advance to regular diet Current Visit: Yes (2) SIRS (systemic inflammatory response syndrome) Status: Resolved Assessment and plan: Resolved Current Visit: Yes (3) Hyperglycemia due to type 2 diabetes mellitus Status: Chronic Assessment and plan: hyperglycemia is better controlled Current Visit: Yes (4) Gastroesophageal reflux Problem details: takes omeprazole for control of this Status: Chronic Current Visit: No (5) Essential hypertension Status: Chronic Current Visit: No - Time Spent With Patient Total time spent is greater than 50% in coordination of care (as documented) at patient's floor/unit and/or counseling patient:
[2018-06-03] MEDS: ONDANSETRON 4 MG/2 ML VIAL IV PRN (14:35)
[2018-06-03] MEDS: hydrOXYzine 25 MG TABLET PO PRN (21:03)
[2018-06-04] MEDS: PIPERACILLIN SODIUM/TAZOBACTAM 3.375 GM in DEXTROSE 5% IN WATER 50 ML IV SCH ×4 (01:26→17:10)
[2018-06-04] MEDS: oxyCODONE/APAP 10/325MG TABLET PO PRN ×3 (04:39→21:42)
[2018-06-04] MEDS: 0.9 % SODIUM CHLORIDE 10 ML SYRINGE IV SCH ×3 (05:48→21:44)
[2018-06-04 06:11] LABS: Basophils # (Auto) 0.1 K/mcL (0.0-0.3); Basophils % (Auto) 0.7 % (0.0-2.0); Eosinophils # (Auto) 0.7 K/mcL (0.0-0.7); Eosinophils % (Auto) 7.9 % (0.0-7.0); Granulocytes % (Auto) 64.4 % (38.0-78.0); Lymphocytes # (Auto) 1.6 K/mcL (1.5-4.8); Lymphocytes % (Auto) 17.9 % (15.5-49.0); Mean Cell Volume 86.8 fL (80.0-100.0); Mean Corpuscular HGB Conc 33.6 g/dL (31.0-36.0); Monocytes # (Auto) 0.8 K/mcL (0.1-0.9); Monocytes % (Auto) 9.1 % (1.0-12.0); Platelet Count 371 K/mcL (140-440); RBC 4.06 M/mcL (4.00-5.20); Red Cell Distribution Width 13.9 % (11.5-14.5)
[2018-06-04 06:36] LABS: ALT/SGPT 10 U/l (0-40); Albumin 2.3 gm/dL (3.2-5.2); Albumin/Globulin Ratio 0.6 (1.0-2.3); Alkaline Phosphatase 89 U/L (39-117); Bilirubin,Direct 0.2 mg/dL (0.0-0.3); Blood Urea Nitrogen 5 mg/dl (8-23); Gamma Glutamyl Transpeptidase 56 U/L (5-36); Uric Acid 2.4 mg/dL (2.5-8.0)
[2018-06-04] MEDS: INSULIN LISPRO 1 UNIT/0.01 ML UNIT SQ SCH ×4 (07:53→21:41)
[2018-06-04] MEDS: traMADol 50 MG TABLET PO PRN ×3 (07:59→20:00)
[2018-06-04] MEDS: GABAPENTIN 300 MG CAPSULE PO SCH ×2 (08:40→21:43)
[2018-06-04] MEDS: DOCUSATE SODIUM 100 MG CAPSULE PO SCH ×2 (08:40→21:42)
[2018-06-04] MEDS: LOSARTAN 50 MG TABLET PO SCH (08:40)
[2018-06-04] MEDS: morphine 30 MG TAB.SR.12H PO SCH ×2 (08:40→21:42)
[2018-06-04] MEDS: FAMOTIDINE/PF 20 MG/2 ML VIAL IV SCH ×2 (08:41→21:44)
--- NOTE | 2018-06-04 13:24 | Internal Med Progress Note ---
Medical - PN: Subj Patient information: Note initiated : 06/04/18 at 1:22 pm Service Date, if different from initiated Date: [] Patient: Diogo Aly a 73 y/o F admitted on 05/29/18 for weakness, altered mental status. Chief Complaint: [] Interval history: Ms. Aly is a 73 year old F who was brought in for altered mental status. History is difficult to obtain from patient as she is slow to answer and appears confused. Often times repeating herself. There was a report that she was outside all night which I have a hard time believing, the patient could not help me with that history. In asking her what brought her in she started talking about a fall that she had on her buttocks when asked if he was today she said yes. She does complain of fevers and chills and headache denies abdominal pain until I palpate her abdomen. In the ED she was found to have a mild leukocytosis with a elevated lactate up to 3.8. 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 She also had a CT abdomen pelvis which was concerning for gangrenous gallbladder however patient underwent ultrasound which showed that what appeared to be gas bubble was a stone but there is still was evidence that is concerning for cholecystitis. Thus Dr. Kulkarni was contacted. 05/30 Rotation greatly improved today. Patient says she does not recall the past couple days. Slept well. She states she is always cold but denies any fevers or other complaints 05/31-patient due for laparoscopic cholecystectomy at 1 PM today. No overnight events. Currently n.p.o. White count stable. Hemodynamic stable. Antihypertensives held this morning prior to surgery. Will review postoperatively. Postoperative care as per surgery 06/01-patient doing well. No overnight events. No concerns per staff. No fever chills. Doing well postoperatively. Advancing diet as tolerated. Anticipate discharge in 24-48 hours. 06/02-patient doing well. White count down to 11,000. A much alert oriented and tolerating diet as per surgery recommendations. Ongoing physical therapy. Denies overnight event including fever chills or concerns per staff. No significant abdominal pain. 06/03-patient doing well. No overnight events. No concerns per staff. No fever chills nausea vomiting. Tolerating diet. Ongoing discharge planning. 06/04 Pt seen examined, no acute issues, no new complaints, cleared for discharge by surgery, will need snf placement, will review case with Case management Pertinent ROS: Denies headache, dizziness Denies chest pain, palpitations Denies cough or shortness of breath present abdominal soreness, no nausea and vomiting. - Constitutional Vitals: Vital Signs Temp Pulse Resp BP Pulse Ox 98.4 F 76 16 123/50 92 06/04/18 11:54 06/04/18 04:27 06/04/18 11:54 06/04/18 11:54 06/04/18 11:54 Period Temp Pulse Resp BP Sys/Munoz Pulse Ox Last 24 Hr 96.9 F-98.5 F 76-84 16-18 123-175/50-69 92-97 Intake and Output 06/03/18 06/04/18 06/04/18 21:59 05:59 13:59 Intake Total 1050 280 50 Output Total 1550 1040 900 Balance -500 -760 -850 Intake & Output: Intake & Output 06/03/18 06/04/18 06/04/18 21:59 05:59 13:59 Intake Total 1050 280 50 Output Total 1550 1040 900 Balance -500 -760 -850 Intake: IV 50 100 50 Zosyn 3.375 gm In Dextrose 5% 50 100 50 in Water 50 ml @ 100 mls/hr IV Q6H [facility] Rx#:[id number] Oral 1000 180 Output: Drainage 50 40 NIKKI Drain 50 40 Urine Catheter Amount 1500 1000 900 Other: Meal Lunch Percent of Meal Consumed 10% Feeding Ability Independent Urine Appearance Clear Clear Uretheral (Angelo) Clear Urine Color Light Elizabeth Light Elizabeth Dark Yellow Uretheral (Angelo) Light Elizabeth Dark Yellow Urine Odor Strong Strong Strong Exam: Constitutional; Afebrile, cooperative, alert, not in distress. Respiratory system: Air Entry equal on both sides, No crackles or wheezing, no rhonchi. CVS- Rate rhythm regular, S1,S2 heard, no gallop, no rub. Abdomen- Soft mildly tender abdomen, no organomegaly, no tenderness, no guarding or rigidity, ROAD [employer]ER- AOOx3, moving all extremities, no gross focal deficit noted. Medical - PN: Obj Da - Labs CBC & Chem 7: 06/04/18 04:12 06/04/18 04:12 Labs: Abnormal Lab Results 06/04/18 06/04/18 06/03/18 04:12 04:12 05:36 WBC RBC Hgb 11.9 L Hct 35.3 L Gran % Lymph % (Auto) Eos % (Auto) 7.9 H Gran # Moca # (Auto) Carbon Dioxide BUN 5 L 6 L Glucose 187 H 179 H Uric Acid 2.4 L 2.3 L Calcium 8.4 L 8.4 L Phosphorus GGT 56 H 58 H Total Protein Albumin 2.3 L 2.3 L Albumin/Globulin Ratio 0.6 L 0.6 L Triglycerides 166 H 176 H 06/03/18 06/02/18 06/02/18 05:36 03:46 03:46 WBC 11.1 H RBC 3.77 L Hgb 11.8 L 11.1 L Hct 33.4 L Gran % Lymph % (Auto) 14.9 L Eos % (Auto) Gran # 8.1 H Moca # (Auto) 1.0 H 1.0 H Carbon Dioxide BUN Glucose 169 H Uric Acid Calcium 8.3 L Phosphorus 2.2 L GGT 38 H Total Protein 5.8 L Albumin 2.5 L Albumin/Globulin Ratio 0.8 L Triglycerides 190 H 06/01/18 06/01/18 15:00 12:39 WBC 16.3 H RBC Hgb 11.9 L Hct 35.8 L Gran % 83.5 H Lymph % (Auto) 9.5 L Eos % (Auto) Gran # 13.6 H Moca # (Auto) 1.1 H Carbon Dioxide 19 L BUN Glucose 237 H Uric Acid Calcium 8.4 L Phosphorus 2.3 L GGT 41 H Total Protein Albumin 2.5 L Albumin/Globulin Ratio 0.7 L Triglycerides 217 H Meds: Medications Acetaminophen (Tylenol) 650 mg PO Q4-6HP PRN PRN Reason: PAIN/FEVER > 101 Albuterol/Ipratropium (Duoneb) 3 ml NEB Q4HRT PRN PRN Reason: Bronchospasm Last Admin: 05/31/18 22:28 Dose: 3 ml Documented by: Bisacodyl (Dulcolax) 10 mg OR Q2-3DAYS PRN PRN Reason: Constipation Dextrose (Dextrose 50%) 0 ml IV UD PRN PRN Reason: Hypoglycemia Diagnostic Test (Pha) (Accu-Chek) 1 each FS ACHS [facility] Last Admin: 06/04/18 11:40 Dose: 1 each Documented by: Docusate Sodium (Colace) 100 mg PO BID [facility] Last Admin: 06/04/18 08:40 Dose: 100 mg Documented by: Famotidine (Pepcid) 20 mg IV Q12 [facility] Last Admin: 06/04/18 08:41 Dose: 20 mg Documented by: Gabapentin (Neurontin) 300 mg PO BID [facility] Last Admin: 06/04/18 08:40 Dose: 300 mg Documented by: Glucose (Insta-Glucose) 15 gm PO PRN PRN PRN Reason: Hypoglycemia Hydralazine HCl (Apresoline) 0 mg IV Q2HP PRN PRN Reason: Hypertension Hydroxyzine HCl (Atarax) 25 mg PO QIDP PRN PRN Reason: Anxiety Last Admin: 06/03/18 21:03 Dose: 25 mg Documented by: Piperacillin Sod/Tazobactam (Sod 3.375 gm/ Dextrose) 50 mls @ 100 mls/hr IV Q6H [facility] Last Infusion: 06/04/18 12:57 Dose: Infused Documented by: Insulin Human Lispro (Humalog) 0 unit SQ [facility]; Protocol Last Admin: 06/04/18 11:47 Dose: 8 units Documented by: Losartan Potassium (Cozaar) 100 mg PO DAILY [facility] Last Admin: 06/04/18 08:40 Dose: 100 mg Documented by: Morphine Sulfate (Ms Contin) 30 mg PO BID [facility] Last Admin: 06/04/18 08:40 Dose: 30 mg Documented by: Ondansetron HCl (Zofran) 4 mg IV Q4-6HP PRN PRN Reason: Nausea And Vomiting Last Admin: 06/03/18 14:35 Dose: 4 mg Documented by: Oxycodone/Acetaminophen (Percocet 10-325mg) 1 tab PO Q6HP PRN PRN Reason: Pain Level 3-6 Last Admin: 06/04/18 04:39 Dose: 1 tab Documented by: Promethazine HCl (Phenergan) 12.5 mg IV Q4-6HP PRN PRN Reason: Nausea And Vomiting Senna (Senokot) 1 tab PO HSP PRN PRN Reason: Constipation Sodium Chloride (Saline Flush) 10 ml IV Q8 [facility] Last Admin: 06/04/18 12:57 Dose: Not Given Documented by: Tramadol HCl (Ultram) 50 mg PO Q4HP PRN PRN Reason: Pain Level 1-3 Last Admin: 06/04/18 07:59 Dose: 50 mg Documented by: Medical - PN: A/P - Time Spent With Patient Total time spent is greater than 50% in coordination of care (as documented) at patient's floor/unit and/or counseling patient: - Narrative A/P Narrative: A/P Acute cholecystitis - Post of day 4, tolerating diet well, cleared for discharge by surgery Sepsis resolved Altered mental status- resolved DM on ssi insulin, glucose uncontrolled, continue ssi, and lantus qhs h/o Asthma -on bronchodilators, prn HTN/Neuropathy -stable Depression/Anxiety/Fibromyalgia -stable Sacral decub ulcer, -wound care following DVT SCD, hep sq started Full code Medical - PN: Qual - VTE Deep Vein Thrombosis/Pulmonary Embolism Present on Admission: No
[2018-06-04] MEDS: INSULIN GLARGINE, HUMAN 1 UNIT/0.01 ML SQ SCH (21:41)
[2018-06-04] MEDS: HEPARIN 5,000 UNIT/ML VIAL SQ SCH (21:43)
[2018-06-04] MEDS: hydrOXYzine 25 MG TABLET PO PRN (23:38)
[2018-06-05] MEDS: traMADol 50 MG TABLET PO PRN ×4 (00:06→21:48)
[2018-06-05] MEDS: ONDANSETRON 4 MG/2 ML VIAL IV PRN ×2 (00:06→22:33)
[2018-06-05] MEDS: PIPERACILLIN SODIUM/TAZOBACTAM 3.375 GM in DEXTROSE 5% IN WATER 50 ML IV SCH ×5 (00:06→23:56)
[2018-06-05] MEDS: oxyCODONE/APAP 10/325MG TABLET PO PRN ×3 (04:01→19:09)
[2018-06-05] MEDS: 0.9 % SODIUM CHLORIDE 10 ML SYRINGE IV SCH ×3 (04:31→21:50)
[2018-06-05 06:45] LABS: Basophils # (Auto) 0.1 K/mcL (0.0-0.3); Basophils % (Auto) 0.7 % (0.0-2.0); Eosinophils # (Auto) 0.7 K/mcL (0.0-0.7); Eosinophils % (Auto) 8.1 % (0.0-7.0); Granulocytes % (Auto) 64.8 % (38.0-78.0); Lymphocytes # (Auto) 1.5 K/mcL (1.5-4.8); Lymphocytes % (Auto) 18.3 % (15.5-49.0); Mean Cell Volume 87.9 fL (80.0-100.0); Mean Corpuscular HGB Conc 33.1 g/dL (31.0-36.0); Monocytes # (Auto) 0.7 K/mcL (0.1-0.9); Monocytes % (Auto) 8.1 % (1.0-12.0); Platelet Count 377 K/mcL (140-440); RBC 3.87 M/mcL (4.00-5.20); Red Cell Distribution Width 13.7 % (11.5-14.5)
[2018-06-05 07:25] LABS: ALT/SGPT 8 U/l (0-40); Albumin 2.1 gm/dL (3.2-5.2); Albumin/Globulin Ratio 0.6 (1.0-2.3); Alkaline Phosphatase 90 U/L (39-117); Bilirubin,Direct < 0.2 mg/dL (0.0-0.3); Blood Urea Nitrogen 7 mg/dl (8-23); Gamma Glutamyl Transpeptidase 50 U/L (5-36)
[2018-06-05] MEDS: INSULIN LISPRO 1 UNIT/0.01 ML UNIT SQ SCH ×4 (07:50→21:49)
[2018-06-05] MEDS: HEPARIN 5,000 UNIT/ML VIAL SQ SCH ×2 (08:58→21:50)
[2018-06-05] MEDS: FAMOTIDINE/PF 20 MG/2 ML VIAL IV SCH ×2 (08:59→21:50)
[2018-06-05] MEDS: GABAPENTIN 300 MG CAPSULE PO SCH ×2 (08:59→21:48)
[2018-06-05] MEDS: morphine 30 MG TAB.SR.12H PO SCH ×2 (08:59→21:48)
[2018-06-05] MEDS: LOSARTAN 50 MG TABLET PO SCH (08:59)
[2018-06-05] MEDS: DOCUSATE SODIUM 100 MG CAPSULE PO SCH ×2 (09:00→21:48)
--- NOTE | 2018-06-05 11:58 | Internal Med Progress Note ---
Medical - PN: Subj Patient information: Note initiated : 06/05/18 at 11:57 am Service Date, if different from initiated Date: [] Patient: Diogo Aly a 73 y/o F admitted on 05/29/18 for weakness, altered mental status. Chief Complaint: [] Interval history: Ms. Aly is a 73 year old F who was brought in for altered mental status. History is difficult to obtain from patient as she is slow to answer and appears confused. Often times repeating herself. There was a report that she was outside all night which I have a hard time believing, the patient could not help me with that history. In asking her what brought her in she started talking about a fall that she had on her buttocks when asked if he was today she said yes. She does complain of fevers and chills and headache denies abdominal pain until I palpate her abdomen. In the ED she was found to have a mild leukocytosis with a elevated lactate up t o 3.8. 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 She also had a CT abdomen pelvis which was concerning for gangrenous gallbladder however patient underwent ultrasound which showed that what appeared to be gas bubble was a stone but there is still was evidence that is concerning for cholecystitis. Thus Dr. Kulkarni was contacted. 05/30 Rotation greatly improved today. Patient says she does not recall the past couple days. Slept well. She states she is always cold but denies any fevers or other complaints 05/31-patient due for laparoscopic cholecystectomy at 1 PM today. No overnight events. Currently n.p.o. White count stable. Hemodynamic stable. Antihypertensives held this morning prior to surgery. Will review postoperatively. Postoperative care as per surgery 06/01-patient doing well. No overnight events. No concerns per staff. No fever chills. Doing well postoperatively. Advancing diet as tolerated. Anticipate discharge in 24-48 hours. 06/02-patient doing well. White count down to 11,000. A much alert oriented and tolerating diet as per surgery recommendations. Ongoing physical therapy. Denies overnight event including fever chills or concerns per staff. No significant abdominal pain. 06/03-patient doing well. No overnight events. No concerns per staff. No fever chills nausea vomiting. Tolerating diet. Ongoing discharge planning. 2/2 Pt seen examined, no acute issues, no new complaints, cleared for discharge by surgery, will need snf placement, will review case with Case management 2/3 pt seen examined, still sore from surgery no new complaints tolerating po diet well Pertinent ROS: Denies headache, dizziness Denies chest pain, palpitations Denies cough or shortness of breath present abdominal pain, No nausea or vomiting. - Constitutional Vitals: Vital Signs Temp Pulse Resp BP Pulse Ox 97.2 F 84 16 136/56 91 06/05/18 06:35 06/05/18 04:00 06/05/18 06:35 06/05/18 06:35 06/05/18 06:35 Period Temp Pulse Resp BP Sys/Munoz Pulse Ox Last 24 Hr 97.2 F-98.6 F 84-84 16-22 136-167/56-88 91-94 Intake and Output 06/04/18 06/05/18 06/05/18 21:59 05:59 13:59 Intake Total 50 50 600 Output Total 620 450 Balance -570 -400 600 Weight 231 lb Intake & Output: Intake & Output 06/04/18 06/05/18 06/05/18 21:59 05:59 13:59 Intake Total 50 50 600 Output Total 620 450 Balance -570 -400 600 Weight 231 lb Intake: IV 50 50 50 Zosyn 3.375 gm In Dextrose 5% 50 50 50 in Water 50 ml @ 100 mls/hr IV Q6H [facility] Rx#:[id number] Oral 550 Output: Drainage 20 NIKKI Drain 20 Urine Catheter Amount 600 450 Other: Meal Breakfast Percent of Meal Consumed 100% Feeding Ability Independent Urine Appearance Clear Uretheral (Angelo) Clear Exam: Constitutional; Afebrile, cooperative, alert, not in distress. Eyes- No icterus, , No periorbital swelling Respiratory system: Air Entry equal on both sides, No crackles or wheezing, no rhonchi. CVS- Rate rhythm regular, S1,S2 heard, no gallop, no rub. Abdomen- Soft abdomen, sores at the site of surgery, [employer]IST- AOOx3, moving all extremities, no gross focal deficit noted. Medical - PN: Obj Da - Labs CBC & Chem 7: 02/03/19 04:47 06/05/18 04:47 Labs: Abnormal Lab Results 06/05/18 06/05/18 06/04/18 04:47 04:47 04:12 RBC 3.87 L Hgb 11.3 L Hct 34.0 L Eos % (Auto) 8.1 H Mckenzie # (Auto) BUN 7 L 5 L Glucose 242 H 187 H Uric Acid 2.0 L 2.4 L Calcium 8.3 L 8.4 L GGT 50 H 56 H Total Protein 5.8 L Albumin 2.1 L 2.3 L Albumin/Globulin Ratio 0.6 L 0.6 L Triglycerides 184 H 166 H 06/04/18 06/03/18 06/03/18 04:12 05:36 05:36 RBC Hgb 11.9 L 11.8 L Hct 35.3 L Eos % (Auto) 7.9 H Mckenzie # (Auto) 1.0 H BUN 6 L Glucose 179 H Uric Acid 2.3 L Calcium 8.4 L GGT 58 H Total Protein Albumin 2.3 L Albumin/Globulin Ratio 0.6 L Triglycerides 176 H Meds: Medications Acetaminophen (Tylenol) 650 mg PO Q4-6HP PRN PRN Reason: PAIN/FEVER > 101 Albuterol/Ipratropium (Duoneb) 3 ml NEB Q4HRT PRN PRN Reason: Bronchospasm Last Admin: 05/31/18 22:28 Dose: 3 ml Documented by: Bisacodyl (Dulcolax) 10 mg ME Q2-3DAYS PRN PRN Reason: Constipation Dextrose (Dextrose 50%) 0 ml IV UD PRN PRN Reason: Hypoglycemia Diagnostic Test (Pha) (Accu-Chek) 1 each FS ACHS [facility] Last Admin: 06/05/18 07:50 Dose: 1 each Documented by: Docusate Sodium (Colace) 100 mg PO BID [facility] Last Admin: 06/05/18 09:00 Dose: 100 mg Documented by: Famotidine (Pepcid) 20 mg IV Q12 [facility] Last Admin: 06/05/18 08:59 Dose: 20 mg Documented by: Gabapentin (Neurontin) 300 mg PO BID [facility] Last Admin: 06/05/18 08:59 Dose: 300 mg Documented by: Glucose (Insta-Glucose) 15 gm PO PRN PRN PRN Reason: Hypoglycemia Heparin Sodium (Porcine) (Heparin) 5,000 unit SQ Q12 [facility] Last Admin: 06/05/18 08:58 Dose: 5,000 unit Documented by: Hydralazine HCl (Apresoline) 0 mg IV Q2HP PRN PRN Reason: Hypertension Hydroxyzine HCl (Atarax) 25 mg PO QIDP PRN PRN Reason: Anxiety Last Admin: 06/04/18 23:38 Dose: 25 mg Documented by: Piperacillin Sod/Tazobactam (Sod 3.375 gm/ Dextrose) 50 mls @ 100 mls/hr IV Q6H [facility] Last Infusion: 06/05/18 06:15 Dose: Infused Documented by: Insulin Glargine (Lantus) 10 unit SQ HS [facility] Last Admin: 06/04/18 21:41 Dose: 10 units Documented by: Insulin Human Lispro (Humalog) 0 unit SQ ACHS [facility]; Protocol Last Admin: 06/05/18 07:50 Dose: 4 units Documented by: Losartan Potassium (Cozaar) 100 mg PO DAILY [facility] Last Admin: 06/05/18 08:59 Dose: 100 mg Documented by: Morphine Sulfate (Ms Contin) 30 mg PO BID [facility] Last Admin: 06/05/18 08:59 Dose: 30 mg Documented by: Ondansetron HCl (Zofran) 4 mg IV Q4-6HP PRN PRN Reason: Nausea And Vomiting Last Admin: 06/05/18 00:06 Dose: 4 mg Documented by: Oxycodone/Acetaminophen (Percocet 10-325mg) 1 tab PO Q6HP PRN PRN Reason: Pain Level 3-6 Last Admin: 06/05/18 04:01 Dose: 1 tab Documented by: Promethazine HCl (Phenergan) 12.5 mg IV Q4-6HP PRN PRN Reason: Nausea And Vomiting Senna (Senokot) 1 tab PO HSP PRN PRN Reason: Constipation Sodium Chloride (Saline Flush) 10 ml IV Q8 [facility] Last Admin: 06/05/18 04:31 Dose: Not Given Documented by: Tramadol HCl (Ultram) 50 mg PO Q4HP PRN PRN Reason: Pain Level 1-3 Last Admin: 06/05/18 06:10 Dose: 50 mg Documented by: Medical - PN: A/P - Time Spent With Patient Total time spent is greater than 50% in coordination of care (as documented) at patient's floor/unit and/or counseling patient: - Narrative A/P Narrative: A/P Acute cholecystitis - Post of day 5, tolerating diet well, cleared for discharge by surgery Sepsis resolved Altered mental status- resolved DM on ssi insulin, glucose uncontrolled, continue ssi, and lantus qhs h/o Asthma -on bronchodilators, prn HTN/Neuropathy -stable Depression/Anxiety/Fibromyalgia -stable Sacral decub ulcer, -wound care following DVT SCD, hep sq started Full code Discharge to SNF in AM Medical - PN: Qual - VTE Deep Vein Thrombosis/Pulmonary Embolism Present on Admission: No
[2018-06-05] MEDS: INSULIN GLARGINE, HUMAN 1 UNIT/0.01 ML SQ SCH (21:49)
[2018-06-06] MEDS: PIPERACILLIN SODIUM/TAZOBACTAM 3.375 GM in DEXTROSE 5% IN WATER 50 ML IV SCH ×2 (05:43→12:06)
[2018-06-06] MEDS: 0.9 % SODIUM CHLORIDE 10 ML SYRINGE IV SCH (05:43)
[2018-06-06] MEDS: oxyCODONE/APAP 10/325MG TABLET PO PRN ×2 (07:27→13:00)
[2018-06-06] MEDS: INSULIN LISPRO 1 UNIT/0.01 ML UNIT SQ SCH ×2 (07:27→12:05)
[2018-06-06] MEDS: GABAPENTIN 300 MG CAPSULE PO SCH (08:31)
[2018-06-06] MEDS: HEPARIN 5,000 UNIT/ML VIAL SQ SCH (08:31)
[2018-06-06] MEDS: DOCUSATE SODIUM 100 MG CAPSULE PO SCH (08:31)
[2018-06-06] MEDS: FAMOTIDINE/PF 20 MG/2 ML VIAL IV SCH (08:31)
[2018-06-06] MEDS: LOSARTAN 50 MG TABLET PO SCH (08:31)
[2018-06-06] MEDS: morphine 30 MG TAB.SR.12H PO SCH (08:32)
[2018-06-06] MEDS: traMADol 50 MG TABLET PO PRN (12:01)
--- NOTE | 2018-06-06 12:45 | Internal Med Progress Note ---
Medical - PN: Subj Patient information: Note initiated : 06/06/18 at 12:43 pm Service Date, if different from initiated Date: [] Patient: Diogo Aly a 73 y/o F admitted on 05/29/18 for weakness, altered mental status. Chief Complaint: [] Interval history: Ms. Ayl is a 73 year old F who was brought in for altered mental status. History is difficult to obtain from patient as she is slow to answer and appears confused. Often times repeating herself. There was a report that she was outside all night which I have a hard time believing, the patient could not help me with that history. In asking her what brought her in she started talking about a fall that she had on her buttocks when asked if he was today she said yes. She does complain of fevers and chills and headache denies abdominal pain until I palpate her abdomen. In the ED she was found to have a mild leukocytosis with a elevated lactate up t o 3.8. 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 She also had a CT abdomen pelvis which was concerning for gangrenous gallbladder however patient underwent ultrasound which showed that what appeared to be gas bubble was a stone but there is still was evidence that is concerning for cholecystitis. Thus Dr. Kulkarni was contacted. 05/30 Rotation greatly improved today. Patient says she does not recall the past couple days. Slept well. She states she is always cold but denies any fevers or other complaints 05/31-patient due for laparoscopic cholecystectomy at 1 PM today. No overnight events. Currently n.p.o. White count stable. Hemodynamic stable. Antihypertensives held this morning prior to surgery. Will review postoperatively. Postoperative care as per surgery 06/01-patient doing well. No overnight events. No concerns per staff. No fever chills. Doing well postoperatively. Advancing diet as tolerated. Anticipate discharge in 24-48 hours. 06/02-patient doing well. White count down to 11,000. A much alert oriented and tolerating diet as per surgery recommendations. Ongoing physical therapy. Denies overnight event including fever chills or concerns per staff. No significant abdominal pain. 06/03-patient doing well. No overnight events. No concerns per staff. No fever chills nausea vomiting. Tolerating diet. Ongoing discharge planning. 2/2 Pt seen examined, no acute issues, no new complaints, cleared for discharge by surgery, will need snf placement, will review case with Case management 2/3 pt seen examined, still sore from surgery no new complaints tolerating po diet well 2/4 Pt seen examined, no acute complaints or concers tolerating po well working with PT Awaiting insurance clearnce for SNF placement. Pertinent ROS: Denies headache, dizziness Denies chest pain, palpitations Denies cough or shortness of breath Denies abdominal pain, nausea or vomiting. - Constitutional Vitals: Vital Signs Temp Pulse Resp BP Pulse Ox 97.1 F 70 16 126/72 93 06/06/18 07:25 06/06/18 07:30 06/06/18 07:30 06/06/18 07:25 06/06/18 07:30 Period Temp Pulse Resp BP Sys/Munoz Pulse Ox Last 24 Hr 97.1 F-98.6 F 70-81 14-18 118-140/46-72 91-97 Intake and Output 06/05/18 06/06/18 06/06/18 21:59 05:59 13:59 Intake Total 1310 50 50 Output Total 1200 2180 Balance 110 -2130 50 Weight 236 lb Intake & Output: Intake & Output 06/05/18 06/06/18 06/06/18 21:59 05:59 13:59 Intake Total 1310 50 50 Output Total 1200 2180 Balance 110 -2130 50 Weight 236 lb Intake: IV 50 50 50 Zosyn 3.375 gm In Dextrose 5% 50 50 50 in Water 50 ml @ 100 mls/hr IV Q6H [facility] Rx#:[id number] Oral 1260 Output: Drainage 20 NIKKI Drain 20 Urine Catheter Amount 1200 160 Void Amount 2000 Other: Meal 3 packets of david crackers Percent of Meal Consumed 100% Urine Appearance Uretheral (Angelo) Clear Clear Urine Color Dark Yellow Uretheral (Angelo) Bright Yellow Bright Yellow Exam: Constitutional; Afebrile, cooperative, alert, not in distress. Eyes- No icterus, , No periorbital swelling Ears- Ext ear normal, hearing normal to conversation. Neck- Midline trachea, supple Respiratory system: Air Entry equal on both sides, No crackles or wheezing, no rhonchi. CVS- Rate rhythm regular, S1,S2 heard, no gallop, no rub. Abdomen- Soft nontender abdomen, no organomegaly, no tenderness, no guarding or rigidity, [facility]- AOOx3, moving all extremities, no gross focal deficit noted. Ulcer on the back 2x2 cms clean, not infected Medical - PN: Obj Da - Labs CBC & Chem 7: 06/05/18 04:47 06/05/18 04:47 Labs: Abnormal Lab Results 06/05/18 06/05/18 06/04/18 04:47 04:47 04:12 RBC 3.87 L Hgb 11.3 L Hct 34.0 L Eos % (Auto) 8.1 H BUN 7 L 5 L Glucose 242 H 187 H Uric Acid 2.0 L 2.4 L Calcium 8.3 L 8.4 L GGT 50 H 56 H Total Protein 5.8 L Albumin 2.1 L 2.3 L Albumin/Globulin Ratio 0.6 L 0.6 L Triglycerides 184 H 166 H 06/04/18 04:12 RBC Hgb 11.9 L Hct 35.3 L Eos % (Auto) 7.9 H BUN Glucose Uric Acid Calcium GGT Total Protein Albumin Albumin/Globulin Ratio Triglycerides Meds: Medications Acetaminophen (Tylenol) 650 mg PO Q4-6HP PRN PRN Reason: PAIN/FEVER > 101 Last Admin: 06/05/18 23:55 Dose: 650 mg Documented by: Albuterol/Ipratropium (Duoneb) 3 ml NEB Q4HRT PRN PRN Reason: Bronchospasm Last Admin: 05/31/18 22:28 Dose: 3 ml Documented by: Bisacodyl (Dulcolax) 10 mg CA Q2-3DAYS PRN PRN Reason: Constipation Dextrose (Dextrose 50%) 0 ml IV UD PRN PRN Reason: Hypoglycemia Diagnostic Test (Pha) (Accu-Chek) 1 each FS ACHS [facility] Last Admin: 06/06/18 12:05 Dose: 1 each Documented by: Docusate Sodium (Colace) 100 mg PO BID [facility] Last Admin: 06/06/18 08:31 Dose: 100 mg Documented by: Famotidine (Pepcid) 20 mg IV Q12 [facility] Last Admin: 02/04/19 08:31 Dose: 20 mg Documented by: Gabapentin (Neurontin) 300 mg PO BID [facility] Last Admin: 06/06/18 08:31 Dose: 300 mg Documented by: Glucose (Insta-Glucose) 15 gm PO PRN PRN PRN Reason: Hypoglycemia Heparin Sodium (Porcine) (Heparin) 5,000 unit SQ Q12 [facility] Last Admin: 06/06/18 08:31 Dose: 5,000 unit Documented by: Hydralazine HCl (Apresoline) 0 mg IV Q2HP PRN PRN Reason: Hypertension Hydroxyzine HCl (Atarax) 25 mg PO QIDP PRN PRN Reason: Anxiety Last Admin: 06/04/18 23:38 Dose: 25 mg Documented by: Piperacillin Sod/Tazobactam (Sod 3.375 gm/ Dextrose) 50 mls @ 100 mls/hr IV Q6H [facility] Last Admin: 06/06/18 12:06 Dose: 100 mls/hr Documented by: Insulin Glargine (Lantus) 10 unit SQ HS [facility] Last Admin: 06/05/18 21:49 Dose: 10 units Documented by: Insulin Human Lispro (Humalog) 0 unit SQ [facility]; Protocol Last Admin: 06/06/18 12:05 Dose: 8 units Documented by: Losartan Potassium (Cozaar) 100 mg PO DAILY [facility] Last Admin: 06/06/18 08:31 Dose: 100 mg Documented by: Morphine Sulfate (Ms Contin) 30 mg PO BID [facility] Last Admin: 06/06/18 08:32 Dose: 30 mg Documented by: Ondansetron HCl (Zofran) 4 mg IV Q4-6HP PRN PRN Reason: Nausea And Vomiting Last Admin: 06/05/18 22:33 Dose: 4 mg Documented by: Oxycodone/Acetaminophen (Percocet 10-325mg) 1 tab PO Q6HP PRN PRN Reason: Pain Level 3-6 Last Admin: 06/06/18 07:27 Dose: 1 tab Documented by: Promethazine HCl (Phenergan) 12.5 mg IV Q4-6HP PRN PRN Reason: Nausea And Vomiting Senna (Senokot) 1 tab PO HSP PRN PRN Reason: Constipation Sodium Chloride (Saline Flush) 10 ml IV Q8 [facility] Last Admin: 06/06/18 05:43 Dose: 10 ml Documented by: Tramadol HCl (Ultram) 50 mg PO Q4HP PRN PRN Reason: Pain Level 1-3 Last Admin: 06/06/18 12:01 Dose: 50 mg Documented by: Medical - PN: A/P - Time Spent With Patient Total time spent is greater than 50% in coordination of care (as documented) at patient's floor/unit and/or counseling patient: - Narrative A/P Narrative: A/P Acute cholecystitis - Post of day 6, tolerating diet well, cleared for discharge by surgery Sepsis resolved Altered mental status- resolved DM on ssi insulin, glucose uncontrolled, continue ssi, and lantus qhs,increase dose of lantus to 20qhs h/o Asthma -on bronchodilators, prn HTN/Neuropathy -stable Depression/Anxiety/Fibromyalgia -stable Sacral decub ulcer, -wound care following, DVT SCD, hep sq started Full code Discharge to SNF when cleared by insurance/Case management. Medical - PN: Qual - VTE Deep Vein Thrombosis/Pulmonary Embolism Present on Admission: No
[2018-06-06] MEDS: hydrOXYzine 25 MG TABLET PO PRN (13:00)
--- NOTE | 2018-06-06 13:20 | Discharge Summary ---
Medical - DS: Prov Patient information: Note initiated : 06/06/18 at 1:18 pm Service Date, if different from initiated Date: [] Patient: Diogo Aly 73 y/o F admitted on 05/29/18 for weakness, altered mental status. Chief Complaint: [] Date of admission: 05/29/18 17:50 Discharge date: 06/06/18 Primary care physician: Tish Reynolds Consults: 05/29/18 16:16 Consult to Physician [CONS] Stat Comment: Consulting Provider: Vic Isbell Reason For Exam: Physician to Consult 05/29/18 16:17 Consult to Physician [CONS] Stat Comment: Consulting Provider: Nicki Kulkarni Reason For Exam: Physician to Consult 06/01/18 09:11 Consult to Physician [CONS] Routine Comment: pressure ulcers gluteus Consulting Provider: Kiel Holt Reason For Exam: Physician to Consult Discharging clinician: Katty Bello Medical - DS: Meds - Discharge Medications Prescriptions: morphine [Ms Contin] 30 mg PO BID #20 tab.sr.12h oxyCODONE HCL/ACETAMINOPHEN [Endocet 10-325 mg Tablet] 1 tab PO Q6HP PRN #30 tab PRN Reason: Pain traMADol [Ultram] 50 mg PO Q4H PRN #30 tab PRN Reason: Pain Active and Home Medications: Home Medications gabapentin 300 mg capsule 900 mg PO BID cap 03/01/15 [History Confirmed 05/29/18 Last Taken Unknown] glipizide ER 5 mg tablet, extended release 24 hr 10 mg PO QDAY 03/01/15 [History Confirmed 05/29/18 Last Taken Unknown] losartan 100 mg tablet 100 mg PO QDAY 03/01/15 [History Confirmed 05/29/18 Last Taken Unknown] metformin 1,000 mg tablet 1,000 mg PO BID 03/01/15 [History Confirmed 05/29/18 Last Taken Unknown] morphine ER 30 mg tablet,extended release 30 mg PO TID tab 03/01/15 [History Confirmed 05/29/18 Last Taken Unknown] naproxen 500 mg tablet 500 mg PO ONCE PRN tab 03/01/15 [History Confirmed 05/29/18 Last Taken Unknown] omeprazole 20 mg tablet,delayed release 20 mg PO QDAY 03/01/15 [History Confirmed 05/29/18 Last Taken Unknown] tramadol 50 mg tablet 50 mg PO Q4H PRN 03/01/15 [History Confirmed 05/29/18 Last Taken Unknown] Estradiol [Estrace] 2 mg PO QDAY 03/18/15 [History Confirmed 05/29/18 Last Taken Unknown] oxycodone-acetaminophen 10 mg-325 mg tablet 1 tab PO Q6HP PRN 07/05/15 [History Confirmed 05/29/18 Last Taken Unknown] methocarbamol 750 mg tablet 750 mg PO HSP PRN tab 10/14/15 [History Confirmed 05/29/18 Last Taken Unknown] hydrOXYzine [Atarax] 25 mg PO QID PRN 05/29/18 [History Confirmed 05/29/18 Last Taken Unknown] Medical - DS: Hosp Hospital course: Ms. Aly is a 73 year old F who was brought in for altered mental status. History is difficult to obtain from patient as she is slow to answer and appears confused. Often times repeating herself. There was a report that she was outside all night which I have a hard time believing, the patient could not help me with that history. In asking her what brought her in she started talking about a fall that she had on her buttocks when asked if he was today she said yes. She does complain of fevers and chills and headache denies abdominal pain until I palpate her abdomen. In the ED she was found to have a mild leukocytosis with a elevated lactate up to 3.8. 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 She also had a CT abdomen pelvis which was concerning for gangrenous gallbladder however patient underwent ultrasound which showed that what appeared to be gas bubble was a stone but there is still was evidence that is concerning for cholecystitis. Thus Dr. Kulkarni was contacted. 05/30 Rotation greatly improved today. Patient says she does not recall the past couple days. Slept well. She states she is always cold but denies any fevers or other complaints 05/31-patient due for laparoscopic cholecystectomy at 1 PM today. No overnight events. Currently n.p.o. White count stable. Hemodynamic stable. Antihypertensives held this morning prior to surgery. Will review postoperatively. Postoperative care as per surgery 06/01-patient doing well. No overnight events. No concerns per staff. No fever chills. Doing well postoperatively. Advancing diet as tolerated. Anticipate discharge in 24-48 hours. 06/02-patient doing well. White count down to 11,000. A much alert oriented and tolerating diet as per surgery recommendations. Ongoing physical therapy. Denies overnight event including fever chills or concerns per staff. No significant abdominal pain. 06/03-patient doing well. No overnight events. No concerns per staff. No fever chills nausea vomiting. Tolerating diet. Ongoing discharge planning. 2/2 Pt seen examined, no acute issues, no new complaints, cleared for discharge by surgery, will need snf placement, will review case with Case management 2/3 pt seen examined, still sore from surgery no new complaints tolerating po diet well 2/4 Pt seen examined, no acute complaints or concers tolerating po well working with PT Awaiting insurance clearnce for SNF placement. Patient cleared by insurance for D/C In Summary A/P Acute cholecystitis gangrenous s/p cholecystectomy by Dr Kulkarni, finished abx course, drain in place - Post of day 6, tolerating po diet well, follow up with surgery in 1 week. DM Resume home oral meds at discharge Sacral decub ulcer, -wound care following, follow up with wound care in 1-2 weeks Discharge diagnosis: acute cholecystitis, sacral ulcer - Time Spent with Patient Total time spent providing and/or coordinating discharge services: Greater than 30 minutes Medical - DS: Exam - Constitutional Vitals: Vital Signs Temp Pulse Resp BP BP Pulse Ox 06/06/18 07:30 70 16 93 06/06/18 07:25 97.1 F 16 126/72 93 06/06/18 04:00 97.5 F 75 18 140/60 91 06/06/18 00:00 98.6 F 81 18 131/49 93 06/05/18 20:00 97.9 F 75 16 118/46 97 06/05/18 16:00 97.8 F 14 131/57 93 Intake and Output 06/05/18 06/06/18 06/06/18 21:59 05:59 13:59 Intake Total 1310 50 400 Output Total 1200 2180 Balance 110 -2130 400 Intake: IV 50 50 100 Zosyn 3.375 gm In Dextrose 5% 50 50 100 in Water 50 ml @ 100 mls/hr IV Q6H [facility] Rx#:[id number] Oral 1260 300 Output: Drainage 20 NIKKI Drain 20 Urine Catheter Amount 1200 160 Void Amount 2000 Other: Meal 3 packets of david crackers Lunch Percent of Meal Consumed 100% 50% Feeding Ability Independent Urine Appearance Uretheral (Angelo) Clear Clear Urine Color Dark Yellow Uretheral (Angelo) Bright Yellow Bright Yellow Weight 236 lb Additional comments: Constitutional; Afebrile, cooperative, alert, not in distress. Respiratory system: Air Entry equal on both sides, No crackles or wheezing, no rhonchi. CVS- Rate rhythm regular, S1,S2 heard, no gallop, no rub. Abdomen- Soft nontender abdomen, no organomegaly, no tenderness, no guarding or rigidity, [employer]- AOOx3, moving all extremities, no gross focal deficit noted. Medical - DS: A/P - Patient/Caregiver Discharge Instructions Activity: increase activity as tolerated Diet: Consistent Carbohydrate Additional Instructions: Follow-up with Dr. Kulkarni in the office in 1 weeks Empty NIKKI drain as needed Change Tegaderm dressing as needed. Follow-up with Dr. Holt in wound healing clinic in 1 week. FOllow up with PCP in 1 week after d/c from SNF Other Amb Orders: Wound Care Instructions Location: None Selected - Follow up Plan Follow up with: Kiel Holt MD [Physician] - (follow up as established patient in wound clinic 1 week after discharge) Nicki Kulkarni MD [Physician] - Tish Reynolds MD [Primary Care Provider] - Disposition: [facility] Prognosis: Fair Rehab Potential: Fair I certify that the patient requires SNF services: Yes Overall status at discharge: patient is progressing back to baseline Medical - DS: Qual - VTE Deep Vein Thrombosis/Pulmonary Embolism Present on Admission: No
[2018-06-06] MEDS ORDERED: INSULIN GLARGINE, HUMAN 1 UNIT/0.01 ML SQ SCH (21:00)
--- NOTE | 2018-06-20 15:14 | Operative Note ---
DATE OF OPERATION: 05/31/2018 PREOPERATIVE DIAGNOSIS: Acute cholecystitis. POSTOPERATIVE DIAGNOSIS: Acute cholecystitis with cholelithiasis. PROCEDURE: Laparoscopy with open cholecystectomy. SURGEON: Nicki Kulkarni MD FINDINGS: Severe inflammation with small stones obstructing gallbladder with abscess formation. DESCRIPTION OF PROCEDURE: Under general anesthesia, the patient's abdomen was prepped and draped in the sterile field. A supraumbilical incision was made and Veress needle was inserted uneventfully. Abdomen was insufflated with 2 liters of CO2. The laparoscope was placed. Under videoscopic guidance, a 12 mm port and two 5 mm ports were placed in the right subcostal region. There was severe inflammation of the gallbladder which was totally covered with omentum. The omentum was taken down using electrocautery and blunt dissection. The inflammation of the gallbladder was so severe that the gallbladder could not be grasped. An attempted aspiration was unsuccessful. There appeared to be a very large stone obstructing the gallbladder with abscess formation in the dome of the gallbladder. It was rapidly noted that the procedure could not be done laparoscopically with any safety. The ports were removed and the right subcostal incision was made. Gilman retractor was placed and the upper abdomen was packed off. The gallbladder was contracted down to 1 very large stone. Using finger fractionation it was from the surrounding omentum, colon, duodenum, stomach. Once it was free, I was able to find the infundibulum of the gallbladder. This was dissected using blunt dissection and the cystic duct was isolated. Cystic duct was followed back to the gallbladder and clipped. Cystic artery branch was more medial and it was followed back to the wall of the gallbladder and clipped. These were then divided. The gallbladder was from the infrahepatic bed using blunt dissection and electrocautery. The bed was irrigated and hemostasis was achieved with electrocautery. A NIKKI drain was placed. It was brought out through the more lateral incision. Sponge, needle, instrument and blade counts were verified as correct. The incision was closed in two layers using 0 Prolene. Subcutaneous tissue was closed with 2-0 Monocryl. Skin was closed with anthony. The port sites were closed with anthony. The patient tolerated the procedure well. She was awakened and transferred to a bed and taken to the postanesthetic care unit in stable, satisfactory condition. LCS:camryn Job ID: [id number] Doc ID: [id number] Nicki Kulkarni M.D.
== END 2018-06-06 14:15 | DRG 414 ==
LOC: ED 11:02 → ICU 17:50 → MEDSUR 05-30 12:07
PROVIDERS: ADMIT Internal Medicine; ATTEND Internal Medicine

== ENCOUNTER 2018-07-19 10:52 | Observation (INO) ==
[2018-07-19] MEDS ORDERED: ACETAMINOPHEN 325 MG TABLET PO PRN (11:17)
[2018-07-19] MEDS ORDERED: PROMETHAZINE 25 MG/ML VIAL IV PRN (11:17)
[2018-07-19] MEDS ORDERED: IOPAMIDOL 100 ML BOTTLE IV ONE (11:29)
[2018-07-19 12:33] LABS: Mean Cell Volume 86.7 fL (80.0-100.0); Mean Corpuscular HGB Conc 33.3 g/dL (31.0-36.0); Platelet Count 405 K/mcL (140-440); RBC 4.53 M/mcL (4.00-5.20); Red Cell Distribution Width 13.7 % (11.5-14.5)
[2018-07-19 12:51] LABS: Band Neutrophils % 1 % (0-10); Eosinophils % (Manual) 6 % (0-7); Lymphocytes % 19 % (15-49); Monocytes % (Manual) 5 % (1-12); Platelet Estimate NORMAL (NORMAL); RBC Morphology NORMAL (NORMAL); Segmented Neutrophils % 69 % (38-78)
[2018-07-19 13:13] LABS: Erythrocyte Sedimentation Rate 29 mm/hr (0-20)
[2018-07-19 14:08] LABS: ALT/SGPT 27 U/l (0-40); Albumin 3.6 gm/dL (3.2-5.2); Alkaline Phosphatase 117 U/L (39-117); Bilirubin,Direct 0.2 mg/dL (0.0-0.3); Blood Urea Nitrogen 9 mg/dl (8-23); Gamma Glutamyl Transpeptidase 43 U/L (5-36); Uric Acid 6.7 mg/dL (2.5-8.0)
[2018-07-19] MEDS: 0.9 % SODIUM CHLORIDE 1,000 ML IV SCH (14:20)
--- NOTE | 2018-07-19 14:27 | Cat Scan Report ---
CLINICAL INFORMATION: Recent cholecystectomy. Persistent right upper quadrant pain COMPARISON: None. TECHNIQUE: Following enteric contrast, 80 cc of Isovue-300 were injected intravenously, and 60 seconds later, 0.625 mm helical slices were obtained from the mid heart through the subtrochanteric regions. Following reconstruction, 2.5 mm sagittal, coronal and axial reformatted images were processed and reviewed at bone, lung and soft tissue windows. Five minutes later, 0.625 mm helical slices were obtained from the mid heart through the kidneys and viewed at soft tissue windows.The exam was performed using radiation dose optimization techniques including, but not limited to, automated exposure control, adjustment of the mA and/or kV according to patient size and use of iterative reconstruction technique. FINDINGS: The lung bases show no abnormality - no effusion. The visualized heart is normal. There is mild concentric wall thickening of the distal esophagus. Images of the abdomen show the gallbladder is surgically absent. The liver is unremarkable. Intrahepatic and intrahepatic bile ducts are mildly dilated: CBD spanning 10 mm. This is expected in a postcholecystectomy state. There is a 15 mm low-attenuation fluid collection in gallbladder fossa this is likely a seroma or Surgicel. Limited The pancreas is unremarkable.Two adjacent nonobstructing stones noted in and inferior calyx of the left kidney, both less than 4 mm, seen as before. No other renal abnormality. Both adrenal glands, spleen, pancreas and aorta, including aortic branches, are normal in size configuration and attenuation without focal lesion. There is no free air or adenopathy Imaging through the pelvis show hysterectomy changes. Both ovaries are also surgically absent. Urinary bladder is normal. Sigmoid diverticulosis is again noted. The remainder of the colon is unremarkable. The appendix is surgically absent. Small bowel and stomach are normal. Bone windows show L3-4 anterior fusion. There are resorptive changes in the inferior L3 and superior L4 endplates but these are stable since the CT two months prior and most likely represent osteoporosis. Mild degenerative disease L4-5 also demonstrate periendplate osteoporosis IMPRESSION: 1. 15 mm fluid collection in the gallbladder fossa which suspect is merely seroma following surgery or Surgicel. If there is concern for bile leak, suggest abdominal MRI with the biliary agent Eovist. 2. Mild dilatation of the common bile duct related to post cholecystectomy state. No change 3. 2. Nonobstructing stones inferior calyx left kidney both 4 mm 4. Concentric wall thickening of the distal esophagus likely indicative of peptic disease. Interpreted and Authenticated by: Jhonny Wilcox 07/19/18
[2018-07-19] MEDS: 0.9 % SODIUM CHLORIDE 10 ML SYRINGE IV SCH ×2 (18:51→22:39)
[2018-07-19] MEDS: HYDROmorphone 2 MG/ML VIAL IV PRN ×2 (20:20→23:54)
[2018-07-19] MEDS: GABAPENTIN 300 MG CAPSULE PO SCH (20:21)
[2018-07-19] MEDS: morphine 30 MG TAB.SR.12H PO SCH (20:21)
[2018-07-19] MEDS: DOCUSATE SODIUM 100 MG CAPSULE PO SCH (20:22)
[2018-07-20] MEDS: HYDROmorphone 2 MG/ML VIAL IV PRN (02:05)
[2018-07-20] MEDS: 0.9 % SODIUM CHLORIDE 1,000 ML IV SCH ×2 (04:07→17:35)
[2018-07-20] MEDS: 0.9 % SODIUM CHLORIDE 10 ML SYRINGE IV SCH ×3 (04:08→23:39)
[2018-07-20] MEDS: PANTOPRAZOLE 40 MG TABLET PO SCH (07:24)
[2018-07-20] MEDS: GABAPENTIN 300 MG CAPSULE PO SCH ×2 (10:04→21:00)
[2018-07-20] MEDS: glipiZIDE 5 MG TAB.XL.24H PO SCH (10:04)
[2018-07-20] MEDS: morphine 30 MG TAB.SR.12H PO SCH ×2 (10:04→21:01)
[2018-07-20] MEDS: LOSARTAN 50 MG TABLET PO SCH (10:04)
[2018-07-20] MEDS: ENOXAPARIN 30 MG/0.3 ML SYRINGE SQ SCH (10:04)
[2018-07-20] MEDS: DOCUSATE SODIUM 100 MG CAPSULE PO SCH ×2 (10:04→21:01)
--- NOTE | 2018-07-20 14:00 | XRay Report ---
CLINICAL INFORMATION: Pain , COMPARISON: 05/29/2018. FINDINGS: The heart size, mediastinum and pulmonary vessels are unremarkable. The lungs are clear. There are no effusions. The bones and soft tissues are within normal limits. IMPRESSION: Normal chest. Interpreted and Authenticated by: Jhonny Wilcox 07/20/18
--- NOTE | 2018-07-20 15:42 | General Surgery Progress Note ---
Subjective Patient reports: feels better, pain is less, flatus, bowel movement, afebrile Narrative: Note initiated : 07/20/18 at 3:39 pm Service Date, if different from initiated Date: [] Patient: Diogo Aly 73 y/o F admitted on 07/19/18 for Post Open Daneila Complication. Chief Complaint: [] Patient states that she feels better. She has been afebrile and vital signs have been stable. She has normal white blood count and her sedimentation rate is only 29. She however does have elevated lactate which is 3. Urine analysis is pending and chest x-ray is pending. Objective Temp Pulse Resp BP Pulse Ox 98.7 F 78 18 131/52 92 07/20/18 11:29 07/20/18 11:29 07/20/18 11:29 07/20/18 11:29 07/20/18 11:29 - Additional Data Intake & Output - Last 24 hours: Intake & Output 07/18/18 07/19/18 07/20/18 07/21/18 05:59 05:59 05:59 05:59 Intake Total 1940 600 Output Total 1650 950 Balance 290 -350 Weight 223 lb 8 oz - General physical appearance no distress, chronically ill, obese - Eyes PERRL, normal ocular movement - ENT normal pinna, normal nares, normal mucosa, no hearing loss, no congestion - Neck no masses - Respiratory normal expansion, normal respiratory effort, clear to auscultation - Cardiovascular Cardiovascular exam: Present: normal rate and rhythm, RRR, +S1, +S2 (120). Absent: JVD, tachycardia - Abdomen non tender, bowel sounds (present), surgical scars (none), masses (none) - Rectum normal sphincter tone, no hemorrhoids, no tenderness, no masses, no bleeding - Integumentary no rash, no growths, no abnormal pigmentation - Neurologic normal coordination, normal sensation - Musculoskeletal normal gait, normal posture - Psychiatric oriented to time, oriented to person, oriented to place, speech is normal, memory intact - Labs 07/19/18 12:04 07/19/18 12:58 Assessment and Plan (1) Nausea and vomiting in adult Status: Acute Current Visit: Yes (2) Gastroesophageal reflux Problem details: takes omeprazole for control of this Status: Chronic Assessment and plan: Continue on present medications Follow-up labs in the morning Recheck lactic acid the morning Current Visit: No (3) Depressive disorder Problem details: 1985 since having to go on disability Status: Chronic Assessment and plan: Resume home medications Current Visit: No (4) Essential hypertension Status: Chronic Assessment and plan: Resume home medications Current Visit: No - Time Spent With Patient Total time spent is greater than 50% in coordination of care (as documented) at patient's floor/unit and/or counseling patient:
[2018-07-20] MEDS ORDERED: hydrOXYzine 25 MG TABLET PO PRN (15:48)
[2018-07-20 16:14] LABS: Appearance,Urine CLEAR; Bilirubin,Urine NEG (NEG); Color,Urine YELLOW; Glucose,Urine (UA) NORM (NEG); Leukocyte Esterase,Urine NEG /uL (NEG); Protein,Urine NEG (NEG); Urine Blood NEG ery/mcL (<5); Urobilinogen,Urine NORM (NEG)
[2018-07-21] MEDS: 0.9 % SODIUM CHLORIDE 1,000 ML IV SCH ×2 (06:52→19:24)
[2018-07-21] MEDS: PANTOPRAZOLE 40 MG TABLET PO SCH (08:05)
[2018-07-21] MEDS: 0.9 % SODIUM CHLORIDE 10 ML SYRINGE IV SCH ×3 (08:10→21:08)
[2018-07-21] MEDS: glipiZIDE 5 MG TAB.XL.24H PO SCH (08:53)
[2018-07-21] MEDS: LOSARTAN 50 MG TABLET PO SCH (08:53)
[2018-07-21] MEDS: GABAPENTIN 300 MG CAPSULE PO SCH ×2 (08:54→21:07)
[2018-07-21] MEDS: DOCUSATE SODIUM 100 MG CAPSULE PO SCH ×2 (08:54→21:08)
[2018-07-21] MEDS: ENOXAPARIN 30 MG/0.3 ML SYRINGE SQ SCH (08:54)
[2018-07-21] MEDS: ESTRADIOL 1 MG TABLET PO SCH (08:58)
[2018-07-21] MEDS: morphine 30 MG TAB.SR.12H PO SCH ×2 (08:58→21:08)
--- NOTE | 2018-07-21 15:42 | General Surgery Progress Note ---
Subjective Patient reports: still having pain, tolerating a regular diet, bowel movement, shortness of breath, afebrile Narrative: Note initiated : 07/21/18 at 3:41 pm Service Date, if different from initiated Date: [] Patient: Diogo Aly 73 y/o F admitted on 07/19/18 for Post Open Daniela Complication. Chief Complaint: [Patient states that she has chest pressure and pain. She also complains of shortness of breath and cough. This was not clinically apparent when I evaluated her about 3 hours ago. She has been afebrile. Chest x-ray done yesterday was totally normal.] Objective Temp Pulse Resp BP Pulse Ox 97.6 F 81 20 143/63 99 07/21/18 11:54 07/21/18 08:00 07/21/18 11:54 07/21/18 11:54 07/21/18 11:54 - Additional Data Intake & Output - Last 24 hours: Intake & Output 07/19/18 07/20/18 07/21/18 07/22/18 05:59 05:59 05:59 05:59 Intake Total 1940 2920 1000 Output Total 1650 3225 450 Balance 290 -305 550 Weight 223 lb 8 oz 225 lb 225 lb - General physical appearance no distress, moderate pain - Eyes PERRL, normal ocular movement - ENT normal pinna, normal nares, normal mucosa, no hearing loss, no congestion - Neck no masses, no bruits, trachea midline, no lymphadenopathy, no venous distension - Respiratory normal expansion, normal respiratory effort, clear to auscultation - Cardiovascular Cardiovascular exam: Present: normal rate and rhythm, RRR, +S1, +S2. Absent: JVD, tachycardia - Abdomen tender (mild tenderness along right subcostal incision otherwise benign abdominal exam), bowel sounds (present), surgical scars (none), masses (none) - Integumentary no rash, no growths, no abnormal pigmentation - Neurologic normal coordination, normal sensation - Musculoskeletal normal gait, normal posture - Psychiatric oriented to time, oriented to person, oriented to place, speech is normal, memory intact - Labs 07/19/18 12:04 07/19/18 12:58 Assessment and Plan (1) Nausea and vomiting in adult Status: Resolved Current Visit: Yes (2) Gastroesophageal reflux Problem details: takes omeprazole for control of this Status: Chronic Assessment and plan: Continue on present medications Follow-up labs in the morning Recheck lactic acid the morning Current Visit: No (3) Depressive disorder Problem details: 1985 since having to go on disability Status: Chronic Assessment and plan: Resume home medications Current Visit: No (4) Essential hypertension Status: Chronic Assessment and plan: Resume home medications Current Visit: No (5) Chest pain at rest Status: Acute Assessment and plan: EKG, troponins every 8 hours 3, follow-up chest x-ray in the morning, Tussionex for cough, reduce IV to 30 cc per hour ProBNP level Current Visit: Yes - Time Spent With Patient Total time spent is greater than 50% in coordination of care (as documented) at patient's floor/unit and/or counseling patient:
[2018-07-21 17:32] LABS: proBNP 244.8 pg/ml (0-125)
[2018-07-21] MEDS: metFORMIN 500 MG TABLET PO SCH (19:20)
[2018-07-22] MEDS: 0.9 % SODIUM CHLORIDE 1,000 ML IV SCH (01:44)
[2018-07-22] MEDS: 0.9 % SODIUM CHLORIDE 10 ML SYRINGE IV SCH (06:05)
[2018-07-22] MEDS: ESTRADIOL 1 MG TABLET PO SCH (08:32)
[2018-07-22] MEDS: LOSARTAN 50 MG TABLET PO SCH (08:33)
[2018-07-22] MEDS: glipiZIDE 5 MG TAB.XL.24H PO SCH (08:33)
[2018-07-22] MEDS: DOCUSATE SODIUM 100 MG CAPSULE PO SCH (08:33)
[2018-07-22] MEDS: GABAPENTIN 300 MG CAPSULE PO SCH (08:33)
[2018-07-22] MEDS: metFORMIN 500 MG TABLET PO SCH (08:33)
[2018-07-22] MEDS: morphine 30 MG TAB.SR.12H PO SCH (08:34)
[2018-07-22] MEDS: ENOXAPARIN 30 MG/0.3 ML SYRINGE SQ SCH (08:34)
[2018-07-22] MEDS: PANTOPRAZOLE 40 MG TABLET PO SCH (08:44)
--- NOTE | 2018-07-22 13:32 | Discharge Summary ---
Providers - Providers Patient information: Note initiated : 07/22/18 at 1:30 pm Service Date, if different from initiated Date: [] Patient: Diogo Aly 73 y/o F admitted on 07/19/18 for Post Open Daniela Complication. Chief Complaint: [] Date of admission: 07/19/18 Discharge date: 07/22/18 Attending physician: Nicki Kulkarni Hospitalization Hospital course: 73-year-old female who is status post open cholecystectomy. She presented on 19 July complaining that she was feeling poorly and having increased abdominal pain dizziness nausea and vomiting. She states that she had pain in her right flank and her roommate states that she had developed mental confusion.patient was admitted to rule out septicemia due to possible intra-abdominal abscess..the patient initial CBC was normal with normal white count,; her sedimentation rate was mildly elevated at 29. Lactic acid was between 2.6 and 3 but there was no obvious source of acidosis except may be related to her metformin. uRINALYSIS WAS NORMAL. CT of the abdomen only showed a very small 12 mm collection of very thin fluid in the subhepatic space which was clinically insignificant. She complained of cough and congestion & substernal chest pain. EKG was normal, troponin less than 0.01, BNP 244. Chest x-ray was also Normal. She was able to be out of bed and showed no evidence of acute disease. Today she still has some of these same complaints but there are no findings to support any problems that can be treated acutely. The nausea and vomiting resolved after 24 hours has not returned. Her diabetes has been relatively well controlled. She has not had ketosis. Patient is felt to be clinically stable and can be discharged home with follow-up by by her primary care provider. Discharge diagnosis: recurrent nausea and vomiting, resolved Secondary discharge diagnosis: Diabetes mellitus type 2; stable Essential hypertension stable Chronic depressive disorder Reason for admission: recurrent nausea and vomiting Procedures: None Pertinent studies/significant findings: CT of abdomen and pelvis with contrast Complications: None Exam Temp Pulse Resp BP Pulse Ox 97.6 F 75 16 130/69 99 07/22/18 11:41 07/22/18 03:12 07/22/18 11:41 07/22/18 11:41 07/22/18 11:41 - General physical appearance well developed, well nourished, no distress - Eyes PERRL, normal ocular movement - ENT normal pinna, normal nares, normal mucosa, no hearing loss, no congestion - Head Head exam IM: Present: atraumatic, normocephalic - Neck no masses, no bruits, trachea midline, no lymphadenopathy, no venous distension - Cardiovascular Cardiovascular exam IM: Present: normal rate and rhythm - Respiratory normal expansion, normal respiratory effort, clear to auscultation - Abdomen Abdomen: Present: soft, tender (mild tenderness of rightsubcostal incision with small amount of drainage; no evidence of acute infection or hernia), bowel sounds Hernia: Present: none - Genitourinary Present: normal external genitalia - Integumentary Present: no rash, no growths, no abnormal pigmentation - Neurologic Present: normal coordination, normal sensation - Musculoskeletal Present: normal gait, normal posture - Psychiatric Present: oriented to time, oriented to person, oriented to place, speech is normal, memory intact Discharge Plan - Patient/Caregiver Discharge Instructions Activity: ambulate only with your walker, increase activity as tolerated Diet: Consistent Carbohydrate - Follow up Plan Disposition: Home Health Service Prognosis: Good Rehab Potential: Good I certify that the patient requires SNF services.: No Overall status at discharge: patient is back to baseline Pending Studies Resuscitation Status Full Code Diet Consistent Carbohydrate Diet Start WedJul 20 0740 Diagnostic Test (Pha) (Accu-Chek) 1 each FS AC [facility] Last Admin: 07/22/18 11:50 Dose: 1 each Documented by: Admin: 07/22/18 08:19 Dose: 1 each Documented by: [email or web address] Admin: 07/21/18 19:20 Dose: 1 each Documented by: Admin: 07/21/18 11:47 Dose: 1 each Documented by: [email or web address] Admin: 07/21/18 08:10 Dose: 1 each Documented by: [email or web address] Admin: 07/20/18 17:35 Dose: 1 each Documented by: [email or web address] Docusate Sodium (Colace) 100 mg PO BID [facility] Last Admin: 07/22/18 08:33 Dose: 100 mg Documented by: [email or web address] Admin: 07/21/18 21:08 Dose: 100 mg Documented by: Admin: 07/21/18 08:54 Dose: 100 mg Documented by: [email or web address] Admin: 07/20/18 21:01 Dose: 100 mg Documented by: [email or web address] Admin: 07/20/18 10:04 Dose: 100 mg Documented by: [email or web address] Admin: 07/19/18 20:22 Dose: 100 mg Documented by: JAYLEN Enoxaparin Sodium (Lovenox) 30 mg SQ DAILY [facility] Last Admin: 07/22/18 08:34 Dose: 30 mg Documented by: Admin: 07/21/18 08:54 Dose: 30 mg Documented by: [email or web address] Admin: 07/20/18 10:04 Dose: 30 mg Documented by: [facility] Estradiol (Estrace) 2 mg PO DAILY [facility] Last Admin: 07/22/18 08:32 Dose: 2 mg Documented by: [email or web address] Admin: 07/21/18 08:58 Dose: 2 mg Documented by: KARINA Gabapentin (Neurontin) 900 mg PO BID [facility] Last Admin: 07/22/18 08:33 Dose: 900 mg Documented by: Admin: 07/21/18 21:07 Dose: 900 mg Documented by: Admin: 07/21/18 08:54 Dose: 900 mg Documented by: Admin: 07/20/18 21:00 Dose: 900 mg Documented by: Admin: 07/20/18 10:04 Dose: 900 mg Documented by: [email or web address] Admin: 07/19/18 20:21 Dose: 900 mg Documented by: JAYLEN Glipizide (Glucotrol Xl) 10 mg PO QDAY [facility] Last Admin: 07/22/18 08:33 Dose: 10 mg Documented by: [email or web address] Admin: 07/21/18 08:53 Dose: 10 mg Documented by: [email or web address] Admin: 07/20/18 10:04 Dose: 10 mg Documented by: [facility] Hydromorphone HCl (Dilaudid) 1 mg IV Q2HP PRN PRN Reason: PAIN LEVEL > 6 Last Admin: 07/20/18 02:05 Dose: 1 mg Documented by: Admin: 07/19/18 23:54 Dose: 1 mg Documented by: Admin: 07/19/18 20:20 Dose: 1 mg Documented by: JAYLEN Sodium Chloride (Sodium Chloride 0.9%) 1,000 mls @ 30 mls/hr IV .Q24H [facility] Last Admin: 07/22/18 01:44 Dose: 30 mls/hr Documented by: Infusion: 07/22/18 01:44 Dose: 0 mls/hr Documented by: Admin: 07/21/18 19:24 Dose: 30 mls/hr Documented by: LORRIE Losartan Potassium (Cozaar) 100 mg PO DAILY [facility] Last Admin: 07/22/18 08:33 Dose: 100 mg Documented by: [email or web address] Admin: 07/21/18 08:53 Dose: 100 mg Documented by: [email or web address] Admin: 07/20/18 10:04 Dose: 100 mg Documented by: [facility] Metformin HCl (Glucophage) 1,000 mg PO BIDCC [facility] Last Admin: 07/22/18 08:33 Dose: 1,000 mg Documented by: [email or web address] Admin: 07/21/18 19:20 Dose: 1,000 mg Documented by: LORRIE Morphine Sulfate (Ms Contin) 30 mg PO BID [facility] Admin: 07/22/18 08:34 Dose: 30 mg Documented by: [email or web address] Admin: 07/21/18 21:08 Dose: 30 mg Documented by: Admin: 07/21/18 08:58 Dose: 30 mg Documented by: Admin: 07/20/18 21:01 Dose: 30 mg Documented by: Admin: 07/20/18 10:04 Dose: 30 mg Documented by: [facility] Admin: 07/19/18 20:21 Dose: 30 mg Documented by: JAYLEN Pantoprazole Sodium (Protonix) 40 mg PO QAMAC [facility] Admin: 07/22/18 08:44 Dose: 40 mg Documented by: [email or web address] Admin: 07/21/18 08:05 Dose: 40 mg Documented by: [email or web address] Admin: 07/20/18 07:24 Dose: 40 mg Documented by: [facility] Sodium Chloride (Saline Flush) 10 ml IV Q8 [facility] Admin: 07/22/18 06:05 Dose: Not Given Documented by: Admin: 07/21/18 21:08 Dose: 10 ml Documented by: Admin: 07/21/18 15:10 Dose: Not Given Documented by: Admin: 07/21/18 08:10 Dose: 10 ml Documented by: Admin: 07/20/18 23:39 Dose: Not Given Documented by: Admin: 07/20/18 14:00 Dose: Not Given Documented by: [facility] Admin: 07/20/18 04:08 Dose: Not Given Documented by: [email or web address] Admin: 07/19/18 22:39 Dose: Not Given Documented by: [email or web address] Admin: 07/19/18 18:51 Dose: Not Given Documented by: [email or web address] Shift Summary 07/22/18 05:07 Shift Summary by Nicki Garcia A&O. Slept for first few hours then had visitor for a few hours. Finally fell asleep again around 0200. Up with assist to BC. Voiding fine. Minimal complaints of pain, medicated only with scheduled home meds. No nausea, tolerating freq snacks through night without issue. MIV at 30mls/hr to RFA. Dressing to right abdomen CDI. Should d/c today. Initialized on 07/22/18 05:07 - END OF NOTE
[2018-07-22] MEDS ORDERED: oxyCODONE/APAP 5/325MG TABLET PO ONE (16:45)
== END 2018-07-22 17:40 | disposition home health service (06) ==
LOC: MEDSUR
PROVIDERS: ADMIT Family Medicine Adult Medicine; ATTEND Family Medicine Adult Medicine